=== PATIENT | female | born 1945 | race Caucasian/White ===

== ENCOUNTER 2016-12-28 08:58 | Outpatient (CLI) ==
--- NOTE | 2016-12-28 10:08 | DEXA ---
EXAM: DEXA scan. HISTORY: Osteoporosis. COMPARISON: 07/28/2012. TECHNIQUE: [employer] UKo [id number]. DEXA scan lumbar spine performed. Quality of the study is good. BMD is 1.071 grams per square cent imeter. T-score -0.9. Z-score 1.2. DEXA scan hips performed. Quality of the study is good. BMD 0.687 grams per square centimeter. T-s core -2.5. Z-score -0.8. IMPRESSION: According to the World Health Organization classification, lumbar spine bone mineral density is norm al. Hip bone mineral density demonstrates osteopenia, with increased fracture risk. Ten-year major osteoporotic fracture risk is 11.2%. Ten-year hip fracture risk is 2.8%. Since the prior study, t here has been no significant interval change.
--- NOTE | 2016-12-29 08:59 | MAMMO ---
EXAM: Bilateral digital screening mammogram History: Screening Comparison: Bilateral mammogram 06/10/2015 Findings: MLO and CC views of bilateral breasts demonstrate heterogeneously dense breast parenchyma which can obscure small lesions. There are no dominant masses, no suspicious microcalcifications a nd no architectural distortions Impression: Benign stable mammogram. Recommend followup routine screening mammography in 1 year. BIRADS 2
== END 2016-12-28 08:59 | disposition home or self-care (01) ==
LOC: RAD 08:58
PROVIDERS: ATTEND Emergency Medicine
DX: Z12.31 Encounter for screening mammogram for malignant neoplasm of breast (principal); M81.0 Age-related osteoporosis without current pathological fracture

== ENCOUNTER 2017-04-14 10:16 | Outpatient (CLI) | payer OTHER ==
[2017-04-14 11:56] VITALS: BMI 18.6
== END 2017-04-14 10:17 | disposition home or self-care (01) ==
LOC: DIETCN 10:16
PROVIDERS: ATTEND Internal Medicine
DX: E11.9 Type 2 diabetes mellitus without complications (principal)
CPT/HCPCS: 97802

== ENCOUNTER 2017-04-27 09:17 | Inpatient (IN) ==
[2017-04-27] MEDS ORDERED: NITROSTAT SL PRN (09:39)
[2017-04-27] MEDS ORDERED: VISTARIL INJ IM PRN (09:39)
[2017-04-27] MEDS ORDERED: MORPHINE 4 MG/ML SYRINGE IVP PRN (09:39)
[2017-04-27] MEDS ORDERED: ATROPINE SULFATE PFS IVP PRN (09:39)
[2017-04-27] MEDS ORDERED: TYLENOL PO PRN (09:39)
[2017-04-27 10:22] LABS: BASOPHILS # (AUTO) 0.1 K/uL (0-0.2); BASOPHILS % (AUTO) 1.2 % (0.0-3.0); EOSINOPHILS # (AUTO) 0.2 K/ul (0.0-0.7); EOSINOPHILS % (AUTO) 2.5 % (0.0-7.0); HEMATOCRIT 38.8 % (37.0-47.0); HEMOGLOBIN 12.6 g/dl (12.0-16.0); IMMATURE GRANULOCYTE % (AUTO) 0.2 % (0.0-5.0); IMMATURE RETIC FRACTION 9.9; LYMPHOCYTES # (AUTO) 1.6 K/uL (0.60-3.4); LYMPHOCYTES % (AUTO) 26.7 (10.0-50.0); MEAN CORPUSCULAR HEMOGLOBIN 29.7 pg (27.0-31.0); MEAN CORPUSCULAR HGB CONC 32.5 (31.8-35.4); MEAN CORPUSCULAR VOLUME 91.5 fl (81.0-99.0); MONOCYTES # (AUTO) 0.5 K/uL (0.4-2.0); NEUTROPHILS # (AUTO) 3.7 K/ul (2.0-6.9); NEUTROPHILS % (AUTO) 61.4; PLATELET COUNT 217 10^3/uL (140-440); RED BLOOD COUNT 4.24 10^6/ul (4.20-5.40); RETICULOCYTE % 1.26 %; WHITE BLOOD COUNT 5.99 K/ul (4.6-10.2)
[2017-04-27 11:02] LABS: BILIRUBIN,URINE Negative (NEGATIVE); KETONES,URINE Negative (NEGATIVE); LEUKOCYTE ESTERASE ,URINE Negative (NEGATIVE); NITRITE,URINE Negative (NEGATIVE); PROTEIN,URINE Negative (NEGATIVE); URINE, BLOOD Negative (NEGATIVE)
[2017-04-27 11:32] LABS: CREATININE 0.77 mg/dL (0.60-1.30)
[2017-04-27 11:40] LABS: ADD URINE MICROSCOPIC NO
[2017-04-27] MEDS ORDERED: NORCO 5-325 PO PRN (11:59)
[2017-04-27] MEDS ORDERED: ASPIRIN EC PO SCH (12:00)
[2017-04-27] MEDS ORDERED: VIT D3 PO SCH (12:00)
[2017-04-27] MEDS ORDERED: BIOFLAVONOIDS PO SCH (12:00)
[2017-04-27] MEDS ORDERED: B2 PO SCH (12:00)
[2017-04-27] MEDS ORDERED: B6 PO SCH (12:00)
[2017-04-27] MEDS ORDERED: NON-FORMULARY MEDICATION (Sitagliptin Phosphate [Januvia] 100 MG) PO SCH ×22 (12:00)
[2017-04-27] MEDS ORDERED: FOLIC ACID PO SCH (12:00)
[2017-04-27] MEDS ORDERED: ASCORBIC ACID PO SCH (12:00)
[2017-04-27] MEDS ORDERED: B12 PO SCH (12:00)
[2017-04-27] MEDS ORDERED: [UNRECOGNIZED DRUG - OTHER] PO SCH (12:00)
[2017-04-27 12:04] LABS: ALANINE AMINOTRANSFERASE 14 U/L (12-78); ALBUMIN 3.9 g/dL (3.4-5.0); ALKALINE PHOSPHATASE 44 U/L (53-141); ANION GAP 15.4; ASPARTATE AMINO TRANSFERASE 15 U/L (15-37); BILIRUBIN,TOTAL 1.05 mg/dL (0.00-1.20); BLOOD UREA NITROGEN 25 mg/dL (7-18); BUN/CREATININE RATIO 32.46; CALCIUM 9.3 mg/dL (8.2-10.2); CARBON DIOXIDE 25 mmol/L (23-31); CHLORIDE 107 mmol/L (98-107); CREATINE KINASE 75 U/L; FERRITIN 18.63 ng/mL (4.63-204.00); FOLATE > 20.0 ng/mL (3.1-20.5); GLUCOSE 176 mg/dL (82-115); IRON 53 ug/dL (50-170); MYOGLOBIN 28 ng/ml; POTASSIUM 4.4 mmol/L (3.5-5.10); SODIUM 143 mmol/L (136-145); TOTAL IRON BINDING CAPACITY 330 ug/dL (240-450); TOTAL PROTEIN 6.5 g/dL (5.8-8.1)
--- NOTE | 2017-04-27 12:52 | DI ---
Exam: Two x-rays of the chest. Comparison: None available. Reason for exam: Syncope, hypertension, chest pain. FINDINGS: No pneumothorax, pleural effusion, or focal consolidation. The cardiac silhouette is not enlarged. The imaged osseous structures are unremarkable without an acute fracture. Degenerative c hanges are seen in the acromioclavicular joint spaces. Impression: No acute cardiopulmonary process.
[2017-04-27] MEDS ORDERED: NON-FORMULARY MEDICATION (Omega-3 Fatty Acids/Fish Oil [Fish Oil 1,000 Mg Capsule] 1 EACH) PO SCH ×22 (13:00)
--- NOTE | 2017-04-27 13:21 | US ---
EXAM: Carotid ultrasound HISTORY: Syncopal episode COMPARISON: None TECHNIQUE: Carotid ultrasound was performed using turk scale, color, and Doppler imaging was perfor med. FINDINGS: Right carotid: There is mild atherosclerosis without significant visualized area of atherosclerotic narrowing. Peak systolic velocity measurement in the right internal carotid artery is 0.9 meters p er second. End-diastolic velocity measurement in the right internal carotid artery is 0.2 meters pe r second. Right internal to common carotid artery peak systolic velocity ratio is 1.9. Flow in the right vertebral artery is antegrade. Left carotid: There is mild atherosclerosis without significant visualized area of atherosclerotic narrowing. Peak systolic velocity measurement in the left internal carotid artery is 0.9 meters per second. End-diastolic velocity measurement in the left internal carotid artery is 0.3 meters per s econd. Left internal to common carotid artery peak systolic velocity ratio measures 1.4. Flow in t he left vertebral artery is antegrade. IMPRESSION: 1. Right internal carotid: No hemodynamically significant stenosis 2. Left internal carotid: No hemodynamically significant stenosis
[2017-04-27] MEDS: PROTONIX PO SCH (13:39)
[2017-04-27] MEDS: OMEGA-3 FISH OIL PO SCH ×3 (13:40→21:01)
[2017-04-27] MEDS ORDERED: JANUVIA PO ONE (13:42)
[2017-04-27] MEDS: NON-FORMULARY MEDICATION (Canagliflozin [Invokana] 100 MG) PO SCH ×2 (13:47→14:03)
[2017-04-27] MEDS ORDERED: NON-FORMULARY MEDICATION (Atorvastatin Calcium [Lipitor] 40 MG) PO SCH ×22 (17:00)
[2017-04-27] MEDS ORDERED: METFORMIN HCL PO SCH ×21 (17:00)
[2017-04-27] MEDS: GLUCOPHAGE PO SCH (17:57)
[2017-04-27] MEDS: LIPITOR PO SCH (17:58)
[2017-04-27] MEDS: ZANTAC PO SCH (17:58)
[2017-04-27 18:39] LABS: CREATINE KINASE 61 U/L; MYOGLOBIN 24 ng/ml
[2017-04-27] MEDS ORDERED: NON-FORMULARY MEDICATION (Ferrous Sulfate [Iron] 325 MG) PO SCH ×22 (21:00)
[2017-04-27] MEDS: FERROUS SULFATE PO SCH (21:01)
--- NOTE | 2017-04-27 21:46 | MRI ---
EXAM: Brain MRI with and without contrast. HISTORY: Hypertension and syncopal episode. COMPARISON: Carotid artery duplex ultrasound 04/27/2017. TECHNIQUE: Multiplanar, multisequence MR images were acquired of the brain before and after adminis tration of intravenous contrast. FINDINGS: The midline structures are central and the craniocervical junction is unremarkable. The ventricles are normal in size. There is mild prominence of some parietal sulci. There are no abnor mal extra-axial fluid collections. The brain parenchyma has no diffusion restriction to suggest acute hypoperfusion or infarction. Abelardo r bifrontal and bioccipital periventricular FLAIR hyperintensity is present. There are small scatte red T2 hyperintensities in the supratentorial white matter. 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 There is no abnormal dark gradient echo signal. After administration of contrast, no enhancing lesions are identified. The corpus callosum has a normal configuration. The pituitary gland is normal in size and has homogeneous contrast enhancement. There are no intraorbital masses. There has been previous right lens surgery. Minor hyperostosis f rontalis interna is present. Paranasal sinuses, middle ears and mastoids are unremarkable. There i s no abnormal contrast enhancement in the internal auditory canals or labyrinthine structures. Two s mall synovial cysts are present anterior margin to the left temporal mandibular joint. Flow voids are present in the major intracranial arteries and dural venous sinuses. IMPRESSION: 1. No intracranial hemorrhage, mass or acute cerebral infarct. 2. Minor chronic ischemic small vessel disease.
[2017-04-28 04:49] LABS: BASOPHILS # (AUTO) 0.1 K/uL (0-0.2); BASOPHILS % (AUTO) 1.1 % (0.0-3.0); EOSINOPHILS # (AUTO) 0.3 K/ul (0.0-0.7); HEMATOCRIT 37.4 % (37.0-47.0); HEMOGLOBIN 12.1 g/dl (12.0-16.0); IMMATURE GRANULOCYTE % (AUTO) 0.2 % (0.0-5.0); LYMPHOCYTES # (AUTO) 1.9 K/uL (0.60-3.4); LYMPHOCYTES % (AUTO) 35.8 (10.0-50.0); MEAN CORPUSCULAR HEMOGLOBIN 29.7 pg (27.0-31.0); MEAN CORPUSCULAR HGB CONC 32.4 (31.8-35.4); MEAN CORPUSCULAR VOLUME 91.9 fl (81.0-99.0); MONOCYTES # (AUTO) 0.5 K/uL (0.4-2.0); MONOCYTES % (AUTO) 9.2 (0-10); NEUTROPHILS # (AUTO) 2.5 K/ul (2.0-6.9); NEUTROPHILS % (AUTO) 48.7; PLATELET COUNT 195 10^3/uL (140-440); RED BLOOD COUNT 4.07 10^6/ul (4.20-5.40); WHITE BLOOD COUNT 5.22 K/ul (4.6-10.2)
[2017-04-28 05:13] LABS: ALBUMIN 3.6 g/dL (3.4-5.0); ALBUMIN/GLOBULIN RATIO 1.29; ANION GAP 13.4; BILIRUBIN,TOTAL 0.61 mg/dL (0.00-1.20); BUN/CREATININE RATIO 27.71; CALCIUM 8.8 mg/dL (8.2-10.2); CREATININE 0.83 mg/dL (0.60-1.30); POTASSIUM 4.4 mmol/L (3.5-5.10); TOTAL PROTEIN 6.4 g/dL (5.8-8.1)
[2017-04-28] MEDS: ZANTAC PO SCH ×2 (05:47→16:46)
[2017-04-28] MEDS: PROTONIX PO SCH (05:47)
[2017-04-28] MEDS: NON-FORMULARY MEDICATION (Canagliflozin [Invokana] 100 MG) PO SCH (05:49)
[2017-04-28] MEDS ORDERED: NON-FORMULARY MEDICATION (Canagliflozin [Invokana] 100 MG) PO SCH (06:30)
[2017-04-28] MEDS: OMEGA-3 FISH OIL PO SCH ×4 (08:59→21:26)
[2017-04-28 09:00] LABS: CHOL/HDL RATIO 2.2 (4.5-5.5)
[2017-04-28] MEDS: JANUVIA PO SCH (09:00)
[2017-04-28] MEDS ORDERED: NON-FORMULARY MEDICATION (Lisinopril [Lisinopril] 2.5 MG) PO SCH ×22 (09:00)
[2017-04-28] MEDS: ZESTRIL PO SCH (09:00)
[2017-04-28] MEDS: GLUCOPHAGE PO SCH ×2 (09:00→16:46)
[2017-04-28] MEDS: ASPIRIN EC PO SCH (09:01)
[2017-04-28] MEDS: ASCORBIC ACID 1000 MG PO SCH (09:01)
[2017-04-28] MEDS: FERROUS SULFATE PO SCH ×2 (09:01→21:27)
--- NOTE | 2017-04-28 09:58 | PCM.PROG ---
Attending Provider: ATTENDING PROVIDER: Dr. ALEX HOGUE DATE OF SERVICE: 04/28/17 SUBJECTIVE: This 71 year old WHITE/ F was hospitalized 04/27/17 with syncopal episode. The patient states she had a few syncopal episodes lately. She states after one episode she was extremely weak and could not function. She was admitted yesterday on holter monitor and routine telemetry and is scheduled for echocardiogram and stress echo today. REVIEW OF SYSTEMS: CONSTITUTIONAL: Weakness. No night sweats. No fever or chills. HEENT: Eyes: No visual changes. No eye pain. No eye discharge. ENT: No runny nose. No epistaxis. No sinus pain. No odynophagia. No congestion. RESPIRATORY: No cough, no congestion. No hemoptysis. CARDIOVASCULAR: No angina symptoms. No CHF symptoms. No atypical chest pain for CAD. No palpitations. No shortness of breath. GASTROINTESTINAL: No abdominal pain. No nausea or vomiting. No diarrhea or constipation. No hematemesis. No hematochezia. GENITOURINARY: No urgency. No frequency. No dysuria. No hematuria. No obstructive symptoms. No discharge. No pain. No significant abnormal bleeding. MUSCULOSKELETAL: No musculoskeletal pain; no joint swelling. NEUROLOGICAL: Awake, alert, oriented to time, place and person. No headache. No neck pain. No syncope. No seizures. No dizziness. PSYCHIATRIC: Not anxious. No depression. No suicidal thoughts. No homicidal thoughts. SKIN: No rash. No lesions. No wounds. ENDOCRINE: No unexplained weight loss. No weight gain. HEMATOLOGIC/LYMPHATIC: No anemia. No purpura. No petechiae. No prolonged or excessive bleeding. No palpable lymph nodes. PHYSICAL EXAMINATION: GENERAL: The patient is awake, alert and oriented, sitting in bed in no distress. VITAL SIGNS: Temperature 97.4 F, Pulse 65, Respiratory Rate 16, BP 101/58, Pulse Ox 97% HEENT: Head normocephalic, atraumatic. Eyes: Extraocular muscles are intact. Pupils are equal, round and reactive to light and accommodation. Ears: No lesions. Nose appeared normal. Throat: No exudate or erythema. NECK: Supple. No JVD, no carotid bruit. No lymphadenopathy or thyromegaly. LUNGS: Breath sounds are clear and equal to auscultation. Percussion note normal. Chest symmetrical. HEART: Regular rate and rhythm, S1, S2, no murmur. No cyanosis or clubbing. No ascites. Pulses: Dorsalis pedis and posterior tibial pulses +1 to +2 both sides. ABDOMEN: Soft. Non-tender. Bowel sounds active. No CVA tenderness. No mass felt. EXTREMITIES: No edema. Full range of motion of all extremities, equal. NEUROLOGIC: No focal deficit. Cranial nerves II through XII are grossly intact. No headache, no double vision or headache. SKIN: Not dry. Intact. Turgor-normal. LYMPHATIC: No palpable lymph nodes/no lymphedema. MUSCULOSKELETAL: Normal joints with no swelling. Muscle tone is normal. LAB REVIEW: 04/28/17 04:30 04/28/17 04:30 04/28/17 04:30: WBC 5.22, RBC 4.07 L, Hgb 12.1, Hct 37.4, MCV 91.9, MCH 29.7, MCHC 32.4, RDW Coeff of Jluis 13.2, Plt Count 195, Immature Gran % (Auto) 0.2, Neut % (Auto) 48.7, Lymph % (Auto) 35.8, Towns % (Auto) 9.2, Eos % (Auto) 5.0, Baso % (Auto) 1.1, Immature Gran # (Auto) 0.0, Neut # 2.5, Lymph # 1.9, Towns # 0.5, Eos # 0.3, Baso # 0.1, Sodium 140, Potassium 4.4, Chloride 105, Carbon Dioxide 26, Anion Gap 13.4, BUN 23 H, Creatinine 0.83, Estimated GFR (MDRD) 68.00, BUN/Creatinine Ratio 27.71, Glucose 199 H, Calcium 8.8, Total Bilirubin 0.61, AST 13 L, ALT 12, Alkaline Phosphatase 42 L, Total Protein 6.4, Albumin 3.6, Globulin 2.8, Albumin/Globulin Ratio 1.29 04/27/17 18:00: Total Creatine Kinase 61, Myoglobin 24, Troponin I < 0.0100 04/27/17 10:50: Urine Color Yellow, Urine Clarity Clear, Urine pH 6.0, Ur Specific [place] 1.020, Urine Protein Negative, Urine Glucose (UA) 2+, Urine Ketones Negative, Urine Blood Negative, Urine Nitrite Negative, Urine Bilirubin Negative, Urine Urobilinogen 0.2, Ur Leukocyte Esterase Negative 04/27/17 10:10: WBC 5.99, RBC 4.24, Hgb 12.6, Hct 38.8, MCV 91.5, MCH 29.7, MCHC 32.5, RDW Coeff of Jluis 13.2, Plt Count 217, Immature Gran % (Auto) 0.2, Neut % (Auto) 61.4, Lymph % (Auto) 26.7, Towns % (Auto) 8.0, Eos % (Auto) 2.5, Baso % (Auto) 1.2, Reticulocyte % (Auto) 1.26, Immature Gran # (Auto) 0.0, Neut # 3.7, Lymph # 1.6, Towns # 0.5, Eos # 0.2, Baso # 0.1, Absolute Retic 0.0534, Retic Hgb Equivalent 35.3, Sodium 143, Potassium 4.4, Chloride 107, Carbon Dioxide 25, Anion Gap 15.4, BUN 25 H, Creatinine 0.77, Estimated GFR (MDRD) 74.00, BUN/Creatinine Ratio 32.46, Glucose 176 H, Calcium 9.3, Iron 53, TIBC 330 , % Saturation 16, Unsat Iron Binding 277, Ferritin 18.63, Total Bilirubin 1.05 , AST 15, ALT 14, Alkaline Phosphatase 44 L, Total Creatine Kinase 75, Myoglobin 28, Troponin I < 0.0100, Total Protein 6.5, Albumin 3.9, Globulin 2.6 , Albumin/Globulin Ratio 1.50, Vitamin B12 429, Folate > 20.0, TSH 1.426, Free T4 1.07 ASSESSMENT: 1. Syncopal epsiodes 2. Hypotension 3. Generalized weakness 4. Diabetes mellitus type 2 5. GERD 6. Anemia PLAN: 1. Lipid profile 2. A1C 3. Continue Holter 4. Echo and stress echo today 5. Continue medications Plan and coordination of the patient's care discussed in the presence of Weighmaster and nurse. CONDITION: Stable SCRIBED BY: OSWALDO COSTA Garment Sewer Hand scribed while in presence of service performed by Dr. ALEX HOGUE/CRISTY BUSBY APRN on 04/28/17 ([id number])
--- NOTE | 2017-04-28 11:44 | HP ---
DATE OF SERVICE: 04/27/17 CHIEF COMPLAINT/HISTORY OF PRESENT ILLNESS: This is a 71-year-old female with complaint of "passing out" several times in the past month. She states she just feels like she needs to sleep. Also, she states she has been having incontinent episodes. No symptoms of CVA or chest pain. REVIEW OF SYSTEMS: CONSTITUTIONAL: Fatigue. No fever. HEENT: No sinus drainage, no sore throat. RESPIRATORY: No cough. No hemoptysis. CARDIOVASCULAR: No atypical chest pain for coronary artery disease. No angina , CHF symptoms, palpitations or shortness of breath. GASTROINTESTINAL: No melena or abdominal pain. No GERD. GENITOURINARY: No hematuria, no polyuria. LOCKSTITCH SLEEVE MAKER: Dizziness. No black out. No headache. No double vision. No gait difficulty. MUSCULOSKELETAL: Osteoarthritis pain. No joint swelling. ENDOCRINE: Weight loss. SKIN: Not dry, no rash. PSYCHIATRIC: Anxious. No depression, no suicidal thoughts, no homicidal thoughts. PAST MEDICAL HISTORY: 1. Diabetes mellitus type 2 2. History of left breast cancer 3. Hypertension 4. Dyslipidemia 5. GERD PAST SURGICAL HISTORY: 1. Tonsils 1955 2. 3. Hysterectomy age 29 4. Left breast cancer 1985 5. Cataract removal MENSTRUAL HISTORY: Hysterectomy. SOCIAL HISTORY: No tobacco. No alcohol use. No illicit drug use. . Seven children. Retired. FAMILY HISTORY: Father is with diabetes mellitus type 2; mother of breast cancer. MEDICATIONS: (HOME) 1. Alendronate 70 mg one tab p.o. weekly 2. Metformin 1,000 mg one tab p.o. b.i.d. a.c. 3. Aspirin (Ecotrin) 81 mg p.o. daily 4. Pantoprazole (Protonix) 40 mg p.o. daily 5. [place]-3 Fatty Acids/Fish Oil one each p.o. q.i.d. 6. Cyanocobalamin 1,000 mcg IM monthly 7. Lisinopril 2.5 mg p.o. daily 8. Ranitidine (Zantac) 150 mg p.o. b.i.d. a.c. 9. Sitagliptin (Januvia) 100 mg p.o. daily 10. Ferrous Sulfate 325 mg p.o. b.i.d. 11. Canagliflozin (Invokana) 100mg p.o. daily 12. Hydrocodone/Acetaminophen one each p.o. q.12hr p.r.n. 13. Atorvastatin (Lipitor) 40 mg p.o. q.p.m. 14. Ascorbic Acid (Vitamin C with Sherlyn Hips) 1,000 mg p.o. daily 15. Calcium Carb/Mag Ox/Zinc Sulf one each p.o. daily ALLERGIES: PENICILLIN, LATEX PHYSICAL EXAMINATION: V/S: Temperature 98, Pulse 60, BP 98/62, 02 sat 99%. Height 5'6". Weight 115.2. BMI 18.6. GENERAL APPEARANCE: Oriented times three. HEENT: Normal. NECK: No JVP, no bruits. RESPIRATORY: Lungs are clear. CARDIOVASCULAR: S1, S2, no S3, no murmurs. No cyanosis, clubbing. No ascites. GI/ABDOMEN: No tenderness. Bowel sounds are active. EXTREMITIES: No edema, pulses +1, equal. LOCKSTITCH SLEEVE MAKER: Deep tendon reflexes, sensory, motor and gait all normal. RECTAL/PELVIC: Colonoscopy screening 11/13 Dr. Nathan. Pelvic: Advised yearly. Mammogram 06/14. Colocare discussed. ASSESSMENT: 1. SYNCOPE EPISODES/HYPOTENSION 2. CHEST PAIN, ATYPICAL 3. DIABETES MELLITUS TYPE 2, A1C 8.1 ON 01/14 4. HYPERTENSION 5. DYSLIPIDEMIA 6. GERD 7. RIGHT SCIATICA 8. LIVER HEMANGIOMA 9. HYSTERECTOMY 10. CATARACT 11. B12 DEFICIENCY 12. ANEMIA 13. EGD 05/30/17 DR. COURTNEY PLAN: 1. Admit to regular with routine telemetry orders. 2. Carotid scan. 3. Echocardiogram 2D 'M' Mode. 4. Stress echocardiogram. 5. MRI of brain with contrast. 6. T4, TSH and BUN. 7. CBC and CMP daily. 8. Anemia profile. 9. Holter monitor. 10. Continue all medications. TIME SPENT: More than 70 minutes. MTDD
[2017-04-28] MEDS ORDERED: JANUVIA PO ONE (13:42)
[2017-04-28] MEDS: LIPITOR PO SCH (16:46)
[2017-04-29 04:45] LABS: BASOPHILS # (AUTO) 0.1 K/uL (0-0.2); BASOPHILS % (AUTO) 0.9 % (0.0-3.0); EOSINOPHILS # (AUTO) 0.3 K/ul (0.0-0.7); EOSINOPHILS % (AUTO) 3.6 % (0.0-7.0); HEMATOCRIT 38.8 % (37.0-47.0); HEMOGLOBIN 12.9 g/dl (12.0-16.0); IMMATURE GRANULOCYTE % (AUTO) 0.4 % (0.0-5.0); LYMPHOCYTES # (AUTO) 1.9 K/uL (0.60-3.4); LYMPHOCYTES % (AUTO) 24.7 (10.0-50.0); MEAN CORPUSCULAR HEMOGLOBIN 30.5 pg (27.0-31.0); MEAN CORPUSCULAR HGB CONC 33.2 (31.8-35.4); MEAN CORPUSCULAR VOLUME 91.7 fl (81.0-99.0); MONOCYTES # (AUTO) 0.6 K/uL (0.4-2.0); MONOCYTES % (AUTO) 7.3 (0-10); NEUTROPHILS # (AUTO) 4.8 K/ul (2.0-6.9); NEUTROPHILS % (AUTO) 63.1; PLATELET COUNT 212 10^3/uL (140-440); RED BLOOD COUNT 4.23 10^6/ul (4.20-5.40); WHITE BLOOD COUNT 7.56 K/ul (4.6-10.2)
[2017-04-29 05:06] LABS: ALBUMIN 3.7 g/dL (3.4-5.0); ALBUMIN/GLOBULIN RATIO 1.28; ANION GAP 13.8; BILIRUBIN,TOTAL 0.69 mg/dL (0.00-1.20); CALCIUM 9.3 mg/dL (8.2-10.2); CREATININE 0.8 mg/dL (0.60-1.30); POTASSIUM 4.8 mmol/L (3.5-5.10); TOTAL PROTEIN 6.6 g/dL (5.8-8.1)
[2017-04-29] MEDS: NON-FORMULARY MEDICATION (Canagliflozin [Invokana] 100 MG) PO SCH (05:39)
[2017-04-29] MEDS: PROTONIX PO SCH (05:39)
[2017-04-29] MEDS: ZANTAC PO SCH (05:39)
[2017-04-29 05:47] VITALS: BP 94/58; TEMP 97
[2017-04-29] MEDS ORDERED: VITAMIN B-12 IM SCH (09:00)
[2017-04-29] MEDS: GLUCOPHAGE PO SCH (09:26)
[2017-04-29] MEDS: JANUVIA PO SCH (09:26)
[2017-04-29] MEDS: ASPIRIN EC PO SCH (09:26)
[2017-04-29] MEDS: ZESTRIL PO SCH (09:27)
[2017-04-29] MEDS: OMEGA-3 FISH OIL PO SCH (09:27)
[2017-04-29] MEDS: FERROUS SULFATE PO SCH (09:28)
--- NOTE | 2017-04-29 09:45 | CM.DICTOOL ---
ADMISSION: 04/27/17 09:17 DISCHARGE: 04/29/17 SYNCOPE EPISODE HYPOTENSION HISTORY OF: HEADACHES HYPERTENSION DYSLIPIDEMIA ATYPICAL CHEST PAIN GERD DEPRESSION ANXIETY ANEMIA GASTRIC ULCER LIVER HEMANGIOMA GERD RIGHT SCIATICA DM SURGICAL HISTORY: S/P HYSTERECTOMY DATE UNKNOWN LEFT BREAST LUMPECTOMY DATE UNKNOWN DATE UNKNOWN LAST VITALS Temp Pulse Resp BP Pulse Ox 97.0 F L 62 18 94/58 L 96 04/29/17 05:47 04/29/17 05:47 04/29/17 08:00 04/29/17 05:47 04/29/17 05:47 ACTIVE MEDICATIONS Acetaminophen (Tylenol) 650 mg PO Q4H PRN PRN Reason: Headache Acetaminophen/Hydrocodone Bitart ([place] 5-325) 1 tab PO Q12HR PRN PRN Reason: pain Last Admin: 04/27/17 13:39 Dose: 1 tab Alendronate Sodium (Fosamax) 70 mg PO Mo@0630 [facility] Aspirin (Aspirin Ec) 81 mg PO DAILYWM [facility] Last Admin: 04/28/17 09:01 Dose: 81 mg Atorvastatin Calcium (Lipitor) 40 mg PO QPM [facility] Last Admin: 04/28/17 16:46 Dose: 40 mg Cyanocobalamin (Vitamin B-12) 1,000 mcg IM MONTHLY [facility] Ferrous Sulfate (Ferrous Sulfate) 324 mg PO BID [facility] Last Admin: 04/28/17 21:27 Dose: 324 mg Fish Oil ([place]-3 Fish Oil) 1,000 mg PO QID [facility] Last Admin: 04/28/17 21:26 Dose: 1,000 mg Lisinopril (Zestril) 2.5 mg PO DAILY [facility] Last Admin: 04/28/17 09:00 Dose: 2.5 mg Metformin HCl (Glucophage) 1,000 mg PO BIDWM [facility] Last Admin: 04/28/17 16:46 Dose: 1,000 mg Non-Formulary Medication (Ascorbic Acid [Vitamin C With Sherlyn Hips]) 1,000 mg PO DAILY [facility] Last Admin: 04/28/17 09:01 Dose: 1,000 mg Non-Formulary Medication (Calcium Carb/Mag Ox/Zinc Sulf [Wmopkmh-Hastymrzg-Uusy Tablet]) 1 each PO DAILY [facility] Last Admin: 04/28/17 09:01 Dose: 1 each Non-Formulary Medication (Canagliflozin [Invokana]) 100 mg PO QDAC [facility] Last Admin: 04/29/17 05:39 Dose: 100 mg Pantoprazole Sodium (Protonix) 40 mg PO QDAC [facility] Last Admin: 04/29/17 05:39 Dose: 40 mg Ranitidine HCl (Zantac) 150 mg PO BIDAC [facility] Last Admin: 04/29/17 05:39 Dose: 150 mg Sitagliptin Phosphate (Januvia) 100 mg PO DAILY [facility] Last Admin: 04/28/17 09:00 Dose: 100 mg ALLERGIES latex Adverse Reaction (Unverified 11/02/13 10:11) Penicillins Adverse Reaction (Unverified 11/02/13 10:11) NEW PRESCRIPTIONS: NO NEW PRESCRIPTIONS SMOKING: N/A DISEASE SPECIFIC EDUCATION: SYNCOPE DIABETES DIET MEDICATION FLUID INTAKE ACTIVITY LAB REVIEW: 04/29/17 04:30 04/29/17 04:30 04/29/17 04:30: WBC 7.56, RBC 4.23, Hgb 12.9, Hct 38.8, MCV 91.7, MCH 30.5, MCHC 33.2, RDW Coeff of Jluis 13.2, Plt Count 212, Immature Gran % (Auto) 0.4, Neut % (Auto) 63.1, Lymph % (Auto) 24.7, [place] % (Auto) 7.3, Eos % (Auto) 3.6, Baso % (Auto) 0.9, Immature Gran # (Auto) 0.0, Neut # 4.8, Lymph # 1.9, Pope # 0.6, Eos # 0.3, Baso # 0.1, Sodium 138, Potassium 4.8, Chloride 103, Carbon Dioxide 26, Anion Gap 13.8, BUN 24 H, Creatinine 0.80, Estimated GFR (MDRD) 71.00, BUN/Creatinine Ratio 30.00, Glucose 206 H, Calcium 9.3, Total Bilirubin 0.69, AST 14 L, ALT 14, Alkaline Phosphatase 62, Total Protein 6.6, Albumin 3.7 , Globulin 2.9, Albumin/Globulin Ratio 1.28 04/28/17 04:35: Hemoglobin A1c 8.0 H, Triglycerides 81, Cholesterol 108, LDL Cholesterol, Calc 42, VLDL Cholesterol 16, HDL Cholesterol 50, Cholesterol/HDL Ratio 2.2 L 04/27/17 10:10: Transferrin 286 PLAN: DISCHARGE TO HOME. FOLLOW UP WITH DR. HOGUE ON April AT 1045. CALL IF UNABLE TO KEEP APPOINTMENT. [phone]. CONTINUE HOME MEDICATIONS PER NURSING SHEET. NO NEW MEDICATIONS. DIET: 2500 CALORIE, HIGH PROTEIN, NO JUICES, 1/2 SERVING SIZE OF FRUITS, INCREASE FLUIDS. ACTIVITY TOLERATED. RETURN TO ER OR CALL MD IF SYMPTOMS RETURN OR WORSEN. UP WALKING IN ROOM. ALERT AND ORIENTED X 4. DENIES SYNCOPE. DR. HOGUE DID ECHO AND STRESS THIS AM AND GAVE VERBAL REPORT OF BOTH BEING NORMAL. DR. HOGUE DISCUSSED PLAN OF CARE WITH PATIENT INCLUDING DISCHARGE. DISCUSSED AT LENGTH DIET, AVOIDANCE OF JUICES, EAT 1/2 SERVINGS OF FRUITS, MEDICATIONS, INCREASE OF PROTEIN INTAKE. PATIENT VERBALIZED UNDERSTANDING AND AGREEMENT. APPETITE IS GOOD. SKIN WARM, DRY AND INTACT. HEART TONES ARE REGULAR WITH TELEMETRY REVEALING SINUS RHYTHM WITH BBB AND SINUS RHYTHM. DENIES CHEST PAIN OR DISCOMFORT. LUNGS ARE CLEAR WITH NO COUGH NOTED OR REPORTED. ABDOMEN IS SOFT, NON-TENDER WITH BOWEL SOUNDS POSITIVE IN ALL 4 QUADS. PEDAL PULSES EQUAL WITHOUT EDEMA. IS FALL RISK WITH FALL PRECAUTIONS IN USE DUE TO DIAGNOSIS. IS STANDBY ASSIST WITH STEADY/SLOW GAIT. VITAL SIGNS ARE STABLE. HAS SALINE LOCK IN LEFT FOREARM SITE IS CLEAR. NO ACUTE DISTRESS NOTED. DR. ALEX HOGUE MD CRISTY BUSBY APRN
[2017-04-29] MEDS ORDERED: VITAMIN B-12 IM STA (10:05)
[2017-04-29] MEDS: ASCORBIC ACID 1000 MG PO SCH (10:07)
--- NOTE | 2017-04-29 10:44 | STRESSMOD ---
Ordering Physician: ALEX HOGUE Date of Test: 04/29/17 Medical History: SYNCOPAL EPISODE, HYPERTENSION, CHEST PAIN Current Medications: LIPITOR, LISINOPRIL, JANUVIA, METFORMIN, INVOKANA, NORCO, PROTONIX Physical Findings: S1, S2, NO S3 Resting EKG: SINUS RHYTHM/NONE SPECIFIC ST-T WAVE Target Heart Rate: 128/151 STAGE MPH/GRADE HEART RATE BPM BLOOD PRESSURE mmhg RHYTHM S-T SEGMENT UP DOWN SYMPTOMS,COMMENTS At Rest 80 108/82 SR X NONE 1 1.7/0% 110 136/74 SR X NONE 2 1.7/5% 120 140/76 SR X NONE 3 1.7/10% 4 2.5/12% 5 3.4/14% 6 4.2/16% 7 5.18% Immediately after 127 SR X SHORT OF BREATH Total Time: 6:48 Maximum Heart Rate Reached: 127 Reason for Termination: SHORT OF BREATH 3 MIN POST EXERCISE: HR 94 BPM, BP 136/80 MMHG ____ INTERPRETATION: 99% OXYGEN SATURATION WITH EXERCISE METS 9.4 1. NO EVIDENCE OF ISCHEMIA BY ST-T WAVE 2. NO CHEST PAIN OR CHEST DISCOMFORT 3. BLOOD PRESSURE RESPONSE: NORMAL 4. NO ARRHYTHMIAS NORMAL LEFT VENTRICULAR CONTRACTILITY--RESTING AND POST EXERCISE MTDD
--- NOTE | 2017-04-29 11:10 | HOLTER ---
PATIENT INFORMATION AND COMMENTS Indications: SYNCOPE __ Patient Medications: LIPITOR, LISINOPRIL, ZANTAC, JANUVIA, METFORMIN, IRON, INVOKANA, NORCO, PROTONIX, ASPIRIN __ Pre-procedure Summary: Protocol: Standard Heart Rate Started: 04/27/17 1326 Minimum: 48 BPM Weight: 115 LBS Ended: 04/28/17 1311 Maximum: 106 BPM Height: 66" Duration: 24 HOURS Average: 62 BPM _ INTERPRETATIONS/OBSERVATIONS: 1. BASIC RHYTHM: SINUS, RATE 50 BPM TO 100 BPM, AVERAGE 60 BPM 2. RARE TO FEW PAC'S AND PVC'S 3. FOUR TO FIVE SHORT RUNS OF SVT WITH RATE 120 BPM NOTED (4 TO 10 BEATS) 4. NO ST-T WAVE CHANGES FROM BASELINE 5. NO CORRELATION WITH ACTIVITY LOG MTDD
--- NOTE | 2017-04-29 12:34 | PN ---
DATE OF SERVICE: 04/28/17 SUBJECTIVE: The patient examined and note dictated by Nurse Practitioner. The patient was seen with Nurse practitioner. REVIEW OF SYSTEMS: CONSTITUTIONAL: No night sweats. No fatigue, malaise, lethargy. No fever or chills. HEENT: Eyes: No visual changes. No eye pain. No eye discharge. ENT: No runny nose. No epistaxis. No sinus pain. No sore throat. No odynophagia. No congestion. RESPIRATORY: No cough, no congestion. No hemoptysis. CARDIOVASCULAR: No angina symptoms. No CHF symptoms. No atypical chest pain for CAD. No palpitations. No shortness of breath. GASTROINTESTINAL: No abdominal pain. No nausea or vomiting. No diarrhea or constipation. No hematemesis. No hematochezia. GENITOURINARY: No urgency. No frequency. No dysuria. No hematuria. No obstructive symptoms. No discharge. No pain. No significant abnormal bleeding. MUSCULOSKELETAL: No musculoskeletal pain; no joint swelling. NEUROLOGICAL: No headache. No neck pain. No syncope. No seizures. No dizziness. PSYCHIATRIC: Not anxious. No depression. No suicidal thoughts. No homicidal thoughts. SKIN: No rash. No lesions. No wounds. ENDOCRINE: No unexplained weight loss. No weight gain. HEMATOLOGIC/LYMPHATIC: No anemia. No purpura. No petechiae. No prolonged or excessive bleeding. No palpable lymph nodes. PHYSICAL EXAMINATION: HEENT: Head normocephalic, atraumatic. Eyes: Extraocular muscles are intact. Pupils are equal, round and reactive to light and accommodation. Ears: No lesions. Nose appeared normal. Throat: No exudate or erythema. NECK: Supple. No JVP, no carotid bruit. No lymphadenopathy or thyromegaly. LUNGS: Clear to auscultation. Percussion note normal. Chest symmetrical. HEART: S1, S2, no S3. No murmurs. No cyanosis or clubbing. No ascites. Pulses: Dorsalis pedis and posterior tibial pulses +1 to +2 both sides. ABDOMEN: Soft. Nontender. Bowel sounds active. No CVA tenderness. No mass felt. EXTREMITIES: No edema. Full range of motion of all extremities, equal. NEUROLOGIC: No focal deficit. Cranial nerves II through XII are grossly intact. No headache, no double vision or headache. SKIN: Not dry. Intact. Turgor - normal. LYMPHATIC: No palpable lymph nodes/no lymphedema. MUSCULOSKELETAL: Normal joints with no swelling. Muscle tone is normal. LABS: Carotid scan no hemodynamically significant blocked arteries. CT scan of the head normal. EKG sinus rhythm with no acute changes. Blood sugar was 199, no hypoglycemia noted. Telemetry no arrhythmias of any significance noted. Labs are acceptable with Creatinine 0.8, BUN 23 and potassium 4.4 PLAN: 1. The patient will undergo echo and stress echo tomorrow CONDITION: Stable. TIME SPENT: More than 30 minutes. Plan and coordination of the patient's care discussed in the presence of nurse. STONE
[2017-05-02] MEDS ORDERED: FOSAMAX PO SCH (06:30)
--- NOTE | 2017-05-02 12:59 | ECHO2D ---
Date of Exam: 04/29/17 Ordering Physician: ALEX HOGUE Reason for Echo: SYNCOPAL EPISODE, HYPERTENSION, ATYPICAL CHEST PAIN M-Mode Normal Adult Results LV Dimensions Normal Adult Results AoV Opening excursions >1.6 >1.6 LVEDD-base- 3.5-5.8 4.0 Ao root dimensions 2.0-3.7 3.2 LVESD-base- 3.1-4.6 L. Atrium dimensions 1.9-3.8 2.6 Post. Wall thickness 0.8-1.1 0.9 IV septum (thickness) 0.7-1.2 1.1 Post. Wall excursion 0.72-1.3 NORMAL Septal motion NORMAL Systolic motion R. Ventricular cavity 1.5-2.0 NORMAL LVEF 60% 55% Paradoxical septal wall motion NORMAL 2-D : MITRAL VALVE PROLAPSE NOTED WITH APICAL FOUR CHAMBER VIEW AND LEFT PARASTERNAL LONG AXIS. NORMAL LEFT VENTRICULAR CONTRACTILITY--NO EFFUSION, NO THROMBUS, NORMAL LEFT VENTRICLE AND LEFT ATRIAL SIZE M-MODE: MV: MITRAL VALVE PROLAPSE -LATE SYSTOLIC AV: NORMAL TV: NORMAL PV: CHAMBER SIZE: NORMAL WALL MOTION: NORMAL PERICARDIUM: NORMAL INTERPRETATION: 1. MITRAL VALVE PROLAPSE LATE SYSTOLIC 2. NORMAL LEFT VENTRICULAR CONTRACTILITY MTDD
--- NOTE | 2017-05-13 14:49 | DS ---
DATE OF SERVICE: 04/29/17 FINAL DIAGNOSIS: 1. Syncope episode 2. Hypotension 3. Mitral valve Prolapse. 4. History of headaches 5. Hypertension 6. Dyslipidemia 7. Atypical chest pain 8. GERD 9. Depression 10. Anxiety 11. Anemia 12. Gastric Ulcer 13. Liver Hemangioma 14. GERD 15. Right sciatica 16. Diabetes Mellitus 17. Status post hysterectomy date unknown 18. Left breast lumpectomy date unknown 19. date unknown LAST VITALS: Temperature 97, pulse 62, respiratory rate 18, blood pressure 94/58 and pulse ox 96% DISCHARGE INSTRUCTIONS: Discharge to home. Followup with Dr. Goldman on May 06 at 1045. Continue home medication per nursing sheet. Return to ER or call MD if symptoms return or worsen. MEDICATIONS AT DISCHARGE: Tylenol 650mg PO Q 4 hours PRN [place] 5-325 PO Q 12 hours PRN Fosamax 70mg PO Mo @ 0630 Aspirin 81mg PO daily Lipitor 40mg PO QPM Vitamin B-12 1,000mcg IM monthly Ferrous Sulfate 324mg PO twice a day [place]-3 Fish Oil 1,000mg PO four times a day Zestril 2.5mg PO daily Glucophage 1,000mg PO twice a day Ascorbic acid(Vitamin C with Sherlyn Hips) 1,000mg PO daily Trrkeej-Gqqhuyovt-Keus PO daily Invokana 100mg PO QDAC Protonix 40mg PO QDAC Zantac 150mg PO twice a day Januvia 100mg PO daily ALLERGIES: Latex Penicillin NEW PRESCRIPTIONS: No New Prescriptions DIET INSTRUCTIONS: 2500 calorie, high protein, no juices, 1/2 serving size of fruits, increase fluids. ACTIVITY: As tolerated SMOKING: N/A DISEASE SPECIFIC EDUCATION: Syncope Diabetes Diet Medication Fluid Intake HOSPITAL COURSE: The patient is a 71 year old white female hospitalized with near syncopal episode and hypotension. The patient was worked up with Carotid scan, MRI of the brain, Telemetry, echocardiogram, stress echo. The patient also had atypical chest pain or coronary insufficiency. All the test were unremarkable. The patient was up and about. The patient's problem is she is exhausted. She lost her nearly six weeks ago. She has been going through a lot of stress and she has has diabetes mellitus with A1c of 8. The patient did not have any hypoglycemia. In fact she has hyperglycemia. The patient was discharged on Lipitor. Lisinopril was used 2.5 because of kidney protection effect of JAYLYN inhibitor. Metformin was continued also with iron pills. Protonix was continued with Zantac. Januvia was continued 100mg and no new medication. The patient is advised to eat regularly, small meals. A little bit more on proteins. Fluids intake seems to be the main problem. CONDITION: Stable LABS: hgb 12.9, hct 38, WBC 7,500 normal differential, creatinine 0.8, BUN 24, potassium 4.8, glucose 260, T4TSH normal. TIME SPENT: More than 60 minutes. MTDD
--- NOTE | 2017-05-13 14:50 | PN ---
04/27/17: Level 5 04/28/17: Intermediate 04/29/17: D as in discharge MTDD
--- NOTE | 2017-05-13 15:04 | PN ---
DATE OF SERVICE: 04/29/17 DISCHARGE NOTE SUBJECTIVE: The patient is a 71 year old white female hospitalized with syncopal episode and hypotension. The patient is up and about feeling a lot better. Her telemetry did not reveal any arrhythmias. Carotid scan and MRI of the brain were normal. REVIEW OF SYSTEMS: CONSTITUTIONAL: No night sweats. No fatigue, malaise, lethargy. No fever or chills. HEENT: Eyes: No visual changes. No eye pain. No eye discharge. ENT: No runny nose. No epistaxis. No sinus pain. No sore throat. No odynophagia. No congestion. RESPIRATORY: No cough, no congestion. No hemoptysis. CARDIOVASCULAR: No angina symptoms. No CHF symptoms. No atypical chest pain for CAD. No palpitations. No shortness of breath. GASTROINTESTINAL: No abdominal pain. No nausea or vomiting. No diarrhea or constipation. No hematemesis. No hematochezia. GENITOURINARY: No urgency. No frequency. No dysuria. No hematuria. No obstructive symptoms. No discharge. No pain. No significant abnormal bleeding. MUSCULOSKELETAL: No musculoskeletal pain; no joint swelling. NEUROLOGICAL: No headache. No neck pain. No syncope. No seizures. No dizziness. PSYCHIATRIC: Not anxious. No depression. No suicidal thoughts. No homicidal thoughts. SKIN: No rash. No lesions. No wounds. ENDOCRINE: No unexplained weight loss. No weight gain. HEMATOLOGIC/LYMPHATIC: No anemia. No purpura. No petechiae. No prolonged or excessive bleeding. No palpable lymph nodes. PHYSICAL EXAMINATION: GENERAL: The patient is oriented to time, place and person. VITAL SIGNS: Temperature 97, pulse 62, respiratory rate 16, blood pressure 94/ 58 and pulse ox 96%. HEENT: Head normocephalic, atraumatic. Eyes: Extraocular muscles are intact. Pupils are equal, round and reactive to light and accommodation. Ears: No lesions. Nose appeared normal. Throat: No exudate or erythema. NECK: Supple. No JVD, no carotid bruit. No lymphadenopathy or thyromegaly. LUNGS: Decreased breath sounds but clear to auscultation. Percussion note normal. Chest symmetrical. HEART: S1, S2, no S3. No murmurs. No cyanosis or clubbing. No ascites. Pulses: Dorsalis pedis and posterior tibial pulses +1 to +2 both sides. ABDOMEN: Soft. Nontender. Bowel sounds active. No CVA tenderness. No mass felt. EXTREMITIES: No edema. Full range of motion of all extremities, equal. NEUROLOGIC: No focal deficit. Cranial nerves II through XII are grossly intact. No headache, no double vision or headache. SKIN: Not dry. Intact. Turgor - normal. LYMPHATIC: No palpable lymph nodes/no lymphedema. MUSCULOSKELETAL: Normal joints with no swelling. Muscle tone is normal. ASSESSMENT: 1. Syncope likely could be exhaustion 2. Hypotension 3. Diabetes Mellitus 4. History of hypertension 5. Dyslipidemia PLAN: 1. The patient had echocardiogram done which showed normal LV contractility; Mitral valve prolapse noted. 2. The patient walked for the stress test more than 8 minutes and reached the target heart rate. No chest pain was noted. Her exercise tolerance is excellent. Her Blood pressure response was normal to the exercise. In fact the exercise test she passed it with flying colors. 3. The patient's problems is hyperglycemia which is mild to moderate. Her A1c is 8 and she was advised to keep it between 6 to 7. 4. Complications of diabetes discussed with her. 5. The diet she is non-complaint. She was counseled about the diet. 6. Also advised to take small meals with more proteins and not to skip the meals and take enough rest. 7. She has been exhausted mentally as well as physically. Her nearly 6 weeks ago. CONDITION: Stable TIME SPENT: More than 30 minutes. Plan and coordination of the patient's care discussed in the presence of nurse. STONE
== END 2017-04-29 10:39 | disposition home or self-care (01) | DRG 312 ==
LOC: MEDSURG B 09:17
PROVIDERS: ADMIT Internal Medicine; ATTEND Internal Medicine
DX: R55 Syncope and collapse (principal); I95.9 Hypotension, unspecified; I34.1 Nonrheumatic mitral (valve) prolapse; I10 Essential (primary) hypertension; E11.65 Type 2 diabetes mellitus with hyperglycemia; D64.9 Anemia, unspecified; E78.5 Hyperlipidemia, unspecified; R07.89 Other chest pain; R53.83 Other fatigue; R53.1 Weakness; K21.9 Gastro-esophageal reflux disease without esophagitis; F41.8 Other specified anxiety disorders; K25.9 Gastric ulcer, unspecified as acute or chronic, without hemorrhage or perforation; D18.09 Hemangioma of other sites; Z86.69 Personal history of other diseases of the nervous system and sense organs; Z63.4 Disappearance and death of family member; Z79.84 Long term (current) use of oral hypoglycemic drugs; Z79.899 Other long term (current) drug therapy
CPT/HCPCS: 36415; 80053; 80061; 81001; 82550; 82607; 82728; 82746; 82962; 83036; 83540; 83550; 83874; 84439; 84443; 84466; 84484; 85025; 85045; 93005; 93010; 97802

== ENCOUNTER 2017-05-30 10:27 | Day surgery (SDC) ==
--- NOTE | 2017-04-29 10:48 | ECHOSTRESS ---
Date of Exam: 04/29/17 Ordering Physician: ALEX HOGUE Reason for Echo: SYNCOPAL EPISODE, HYPERTENSION, ATYPICAL CHEST PAIN, STRESS TEST--NO ISCHEMIA M-Mode Normal Adult Results LV Dimensions Normal Adult Results AoV Opening excursions >1.6 LVEDD-base- 3.5-5.8 Ao root dimensions 2.0-3.7 LVESD-base- 3.1-4.6 L. Atrium dimensions 1.9-3.8 Post. Wall thickness 0.8-1.1 IV septum (thickness) 0.7-1.2 Post. Wall excursion 0.72-1.3 Septal motion Systolic motion R. Ventricular cavity 1.5-2.0 LVEF 60% Paradoxical septal wall motion 2-D: NORMAL LEFT VENTRICULAR CONTRACTILITY--RESTING AND POST EXERCISE M-MODE: MV: AV: TV: PV: CHAMBER SIZE: WALL MOTION: NORMAL LEFT VENTRICULAR CONTRACTILITY--RESTING AND POST EXERCISE PERICARDIUM: INTERPRETATION: 1. NORMAL LEFT VENTRICULAR CONTRACTILITY--RESTING AND POST EXERCISE MTDD
[2017-05-30] MEDS ORDERED: DIPRIVAN 20 ML VIAL IVP ONE (11:14)
[2017-05-30] MEDS ORDERED: VERSED ONE (11:14)
[2017-05-30 12:24] VITALS: BP 93/52; TEMP 98.3
--- NOTE | 2017-05-31 10:15 | OP ---
PROCEDURE: EGD (ESOPHAGOGASTRODUODENOSCOPY). ENDOSCOPIST: Shirin COURTNEY M.D. INDICATION: ABDOMINAL PAIN. INSTRUMENT: GIFH-190. MEDICATION: PER ANESTHESIA. PROCEDURE: The patient was positioned for endoscopy. The oropharynx was sprayed with Cetacaine spray and the endoscope was advanced through the bite block into the esophagus and from there advanced to the duodenum. The duodenum was normal. The pylorus was widely patent. The antrum is notable for gastritis. Biopsy for helicobacter was obtained. Retroflex exam was otherwise normal. Esophagus normal with a Z-line noted at 40 cm. The patient tolerated the procedure without immediate complication and is positioned for colonoscopy. CC: DR. MYKEL RITTER
--- NOTE | 2017-05-31 10:17 | OP ---
PROCEDURE: COLONOSCOPY TO THE CECUM WITH SNARE POLYPECTOMY. ENDOSCOPIST: Shirin COURTNEY M.D. INDICATION: ABDOMINAL PAIN. INSTRUMENT: FH-190. MEDICATION: PER ANESTHESIA. PROCEDURE: The patient was positioned for colonoscopy. The digital rectal exam was negative. The colonoscope was inserted through the anus and advanced under direct vision to the cecum. The cecum was identified using the ileocecal valve and the appendiceal orifice as landmarks. The scope was slowly withdrawn through an adequately prepped colon. A 6 mm sessile polyp was removed at 70 cm using snare cautery. Diverticuli were noted throughout the left colon. Retroflex exam was otherwise normal. Withdrawal time 10 minutes, 33 seconds. PLAN: 1. Suggest repeat colonoscopy in 5 years. CC: DR. MYKEL RITTER
== END 2017-05-30 13:08 | disposition home or self-care (01) ==
LOC: SURG 10:27
PROVIDERS: ATTEND Internal Medicine Gastroenterology
DX: R10.9 Unspecified abdominal pain (principal); D12.4 Benign neoplasm of descending colon; K29.70 Gastritis, unspecified, without bleeding; K57.30 Diverticulosis of large intestine without perforation or abscess without bleeding
CPT/HCPCS: 87339

== ENCOUNTER 2017-06-17 14:54 | Outpatient (CLI) ==
--- NOTE | 2017-06-17 16:06 | DI ---
EXAM: Left knee, four views, 06/17/2017 HISTORY: Pain COMPARISON: None. FINDINGS / IMPRESSION: The visualized osseous structures appear intact. Mild osteoarthritic degene rative change. Anatomic alignment appears within normal limits. There is no evidence of fracture or dislocation. No acute osseous abnormality.
--- NOTE | 2017-06-17 16:12 | DI ---
EXAM: Three views of the left ankle HISTORY: Ankle pain with no injury. COMPARISON: None FINDINGS: There is no lytic or blastic lesion of the left ankle. There is no displaced fracture or dislocation. The soft tissues are unremarkable. Hind foot structures are unremarkable. IMPRESSION: No acute abnormality or displaced fracture of the left ankle.
== END 2017-06-17 14:55 | disposition home or self-care (01) ==
LOC: RAD 14:54
PROVIDERS: ATTEND Internal Medicine
DX: M25.562 Pain in left knee (principal); M25.572 Pain in left ankle and joints of left foot

== ENCOUNTER 2018-01-05 08:06 | Outpatient (CLI) ==
--- NOTE | 2018-01-06 11:44 | MAMMO ---
EXAM: Bilateral digital screening mammogram (2-D and 3-D) History: Screening Comparison: Bilateral mammogram 12/28/2016 Findings: MLO and CC views of bilateral breasts demonstrate heterogeneously dense breast parenchyma which can obscure small lesions. CAD was reviewed by the radiologist. Tomosynthesis was performed. There are no dominant masses, no suspicious microcalcifications and no architectural distortions Impression: Stable negative mammogram. Recommend followup routine screening mammography in 1 year. BIRADS 1
== END 2018-01-05 08:07 | disposition home or self-care (01) ==
LOC: RAD 08:06
PROVIDERS: ATTEND Internal Medicine
DX: Z12.31 Encounter for screening mammogram for malignant neoplasm of breast (principal)
CPT/HCPCS: 77067

== ENCOUNTER 2018-03-08 17:18 | Emergency (ER) ==
[2018-03-08 17:24] VITALS: BP 131/72; TEMP 97.8; BMI 20.9
[2018-03-08] MEDS ORDERED: MORPHINE 4 MG/ML SYRINGE IM STA (17:34)
[2018-03-08] MEDS ORDERED: ZOFRAN 4 MG/2 ML IM STA (17:35)
--- NOTE | 2018-03-08 18:21 | ED.PDOC ---
General ED Provider: Dr. YESSI ADKINS Chief Complaint: Chest Wall Injury/Pain Stated Complaint: blunt chest injury right chest wall Time Seen by Physician: 17:30 (30 min ago seen with RN) Mode of Arrival: Walk-In Information Source: Patient Exam Limitations: No limitations Primary Care Provider: ALEX HOGUE Nursing and Triage Documentation Reviewed and Agree: Yes Reviewed sepsis parameters & appropriate labs ordered?: Yes System Inflammatory Response Syndrome: Not Applicable Sepsis Protocol: For patient's 13 years and over: Temp is 96.8 and below OR 101 and greater Pulse >90 BPM Resp >20/minute Acutely Altered Mental Status Are patient's symptoms suggestive of a new infection, such as: -Pneumonia -Skin, Soft Tissue -Endocarditis -UTI -Bone, Joint Infection -Implantable Device -Acute Abdominal Infection -Wound Infection -Meningitis -Blood Stream Catheter Infection -Unknown System Inflammatory Response Syndrome: Not Applicable Trauma/Injury Complaint Exam - Trauma Complaint/Exam Location of Pain or Injury: Reports: Chest (RIGHT LOWER CHEST) Mechanism of Injury: Reports: Fall Onset/Duration: 17:19 Symptoms Are: Still present Initial Severity: Moderate Current Severity: Moderate Character: Reports: Aching Aggravating: Reports: None Alleviating: Reports: None Associated Signs and Symptoms: Denies: LOC, Confusion, Memory loss, Lethargy, Vomiting, Bleeding, Bruising, Swelling, Extremity disuse, Painful respiration, Hoarseness, Dysphagia, Hemoptysis, Significant blood loss Related History: Reports: Similar episode : No Penetrating Injury Risk Factors: Reports: None Nexus Low Risk Criteria: No post-midline CS tender, No evidence of intoxicat., No Altered LOC, No focal neuro deficit, No distracting injuries Immobilization Removed Post Exam: No Trauma Findings: Absent: [place] eyes, Hemotympanum, Nasal deformity, Dental tenderness, Dental injury, Dental malocclusion, Neck tenderness, Neck spasm, Crepitus, Airway obstructed, Trachea displaced, Labored respirations, Decreased breath sounds, Muffled heart sounds, Weak pulses, Absent pulses, Abdominal distention, Pelvic tenderness, Pelvic instability Differential Diagnoses: Sprain, Strain Review of Systems - Review Of Systems Constitutional: Reports: No symptoms Eyes: Reports: No symptoms Ears, Nose, Mouth, Throat: Reports: No symptoms Respiratory: Reports: No symptoms Cardiac: Reports: No symptoms GI: Reports: No symptoms : Reports: No symptoms Musculoskeletal: Reports: Other (CHEST WALL PAIN) Skin: Reports: No symptoms Neurological: Reports: No symptoms Endocrine: Reports: No symptoms Hematologic/Lymphatic: Reports: No symptoms All Other Systems: Reviewed and Negative Past Medical History - Past Medical History Previously Healthy: Yes Endocrine: Reports: DM 2 Cardiovascular: Reports: Hypertension Respiratory: Reports: None Hematological: Reports: None Gastrointestinal: Reports: None Genitourinary: Reports: None Neuro/Psych: Reports: None Musculoskeletal: Reports: None Cancer: Reports: None Last Menstrual Period: none - Surgical History General Surgical History: Reports: None - Family History Family History: Reports: None - Social History Smoking Status: Former smoker Hx Substance Use: No Alcohol Screening: None Physical Exam - Physical Exam Appearance: Well-appearing, No pain distress, Well-nourished Eyes: TINO, EOMI, Conjunctiva clear ENT: Ears normal, Nose normal, Oropharynx normal Respiratory: Airway patent, Breath sounds clear, Breath sounds equal, Respirations nonlabored Cardiovascular: RRR, Pulses normal, No rub, No murmur GI/: Soft, Nontender, No masses, Bowel sounds normal, No Organomegaly Musculoskeletal: Normal strength, ROM intact, No edema, No calf tenderness Skin: Warm, Dry, Normal color Neurological: Sensation intact, Motor intact, Reflexes intact, Cranial nerves intact, Alert, Oriented Psychiatric: Affect appropriate, Mood appropriate Critical Care Note - Critical Care Note Total Time (mins): 0 Course - Course Orders, Labs, Meds: Orders Category Date Time Status Morphine Sulfate [Morphine 4 mg/ml Syringe] MEDS 03/08/18 17:34 Discontinued 4 mg IM ONCE STA Ondansetron HCl/Pf [Zofran 4 mg/2 ml] MEDS 03/08/18 17:35 Discontinued 4 mg IM ONCE STA CT CHEST W/O CONTRAST Stat RADS 03/08/18 17:33 Taken Medications Discontinued Medications Generic Name Dose Route Start Last Admin Trade Name Freq PRN Reason Stop Dose Admin Morphine Sulfate 4 mg 03/08/18 17:34 03/08/18 18:15 Morphine 4 Mg/Ml Syringe IM 03/08/18 17:35 4 mg ONCE STA Administration Ondansetron HCl 4 mg 03/08/18 17:35 03/08/18 18:14 Zofran 4 Mg/2 Ml IM 03/08/18 17:36 4 mg ONCE STA Administration Vital Signs: Temp Pulse Resp BP Pulse Ox 03/08/18 17:19 97.8 F 96 H 18 131/72 96 Departure - Departure Time of Disposition: 19:20 Disposition: HOME SELF-CARE Discharge Problem: Chest wall pain Instructions: Chest Wall Pain (ED) Condition: Good Pt referred to PMD for follow-up: No IPMP verified?: Yes Additional Instructions: Please call your Family Physician as soon as possible to schedule a follow-up appointment. Allergies/Adverse Reactions: Allergies latex Adverse Reaction (Verified 03/08/18 17:24) Penicillins Adverse Reaction (Verified 03/08/18 17:24) Home Medications: Ambulatory Orders Alendronate Sodium 1 tab PO WEEKLY 11/02/13 Aspirin [Ecotrin] 81 mg PO DAILY 11/02/13 Metformin HCl 1 tab PO BIDAC 11/02/13 Ascorbic Acid [Vitamin C with Sherlyn Hips] 1,000 mg PO DAILY 04/27/17 Atorvastatin Calcium [Lipitor] 40 mg PO QPM 04/27/17 Calcium Carb/Mag Ox/Zinc Sulf [Dpjshug-Pislfkkow-Aggk Tablet] 1 each PO DAILY Cyanocobalamin (Vitamin B-12) [Cyanocobalamin Injection] 1,000 mcg IM MONTHLY Ferrous Sulfate [Iron] 325 mg PO BID 04/27/17 Hydrocodone Bit/Acetaminophen [[place] 5-325] 1 each PO Q12HR PRN 04/27/17 Lisinopril 2.5 mg PO DAILY 04/27/17 [place]-3 Fatty Acids/Fish Oil [Fish Oil 1,000 mg Capsule] 1 each PO QID 04/27/17 Pantoprazole Sodium [Protonix] 40 mg PO DAILY 04/27/17 Ranitidine HCl [Zantac] 150 mg PO BIDAC 04/27/17 Insulin Lispro [Humalog] 15 unit SUBCUT ONCE 03/08/18 Disposition Discussed With: Patient
--- NOTE | 2018-03-08 18:22 | CT ---
Exam: CT of the chest without intravenous contrast. Comparison: Chest x-ray performed 04/27/2017. Reason for exam: Pain. FINDINGS: No pneumothorax, pleural effusion, or focal consolidation. The cardiac silhouette is not enlarged. The aorta is mildly prominent measuring 3.5 cm at the level of the arch. Atherosclerotic disease is seen within the aorta and distal arterial vasculature. No suspicious appearing osteoblastic or osteolytic lesions. No displaced fractures are seen. Impression: No acute imaging findings are seen within the thorax.
== END 2018-03-08 19:24 | disposition home or self-care (01) ==
LOC: ED 17:18
DX: R07.89 Other chest pain (principal); W19.XXXA Unspecified fall, initial encounter
CPT/HCPCS: 96372; 99283

== ENCOUNTER 2018-03-15 09:48 | Outpatient (CLI) | payer OTHER ==
--- NOTE | 2018-03-15 10:55 | DI ---
EXAM: PA and lateral views of the chest HISTORY: Chest pain COMPARISON: CT chest 03/08/2018 FINDINGS: The cardiomediastinal silhouette is normal. There is no pneumothorax or pleural effusion. There is no consolidation, nodule or mass. The osseous structures demonstrate degenerative disease . IMPRESSION: No acute cardiopulmonary process
--- NOTE | 2018-03-15 11:01 | DI ---
EXAM: Radiographs, bilateral rib HISTORY: Bilateral rib pain. COMPARISON: Chest CT 03/08/2018. TECHNIQUE: Four views. FINDINGS/IMPRESSION: Nondisplaced right seventh, eighth and ninth anterolateral rib fractures noted. No left rib fracture s seen. Lungs are clear without pleural effusion or pneumothorax.
== END 2018-03-15 09:49 | disposition home or self-care (01) ==
LOC: RAD 09:48
PROVIDERS: ATTEND Internal Medicine
DX: M54.9 Dorsalgia, unspecified (principal); R07.81 Pleurodynia; R06.02 Shortness of breath

== ENCOUNTER 2018-06-16 11:54 | Outpatient (CLI) | payer OTHER ==
--- NOTE | 2018-06-16 13:35 | US ---
EXAM: Ultrasound bilateral carotid duplex HISTORY: Dizziness COMPARISON: Carotid Doppler 04/27/2017 TECHNIQUE: Sonographic and color Doppler evaluation of the carotids were performed. FINDINGS: The right carotid is tortuous and patent in appearance with mild atherosclerotic plaque visualized. The right ICA peak systolic velocity measures 90 cm/sec which is normal. The ICA / CCA peak systolic velocity ratio is 1.6 and ICA end-diastolic velocity is 30 cm/sec. The left carotid is tortuous and patent in appearance with mild atherosclerotic plaque visualized. The left ICA peak systolic velocity measures 90 cm/sec which is normal. The left ICA / CCA peak systolic velocity ratio is 1.8 and ICA end-diastolic velocity is 30 cm/sec. Right vertebral artery demonstrate antegrade flow bilaterally. Left vertebral artery is not seen. IMPRESSION: 1. Mild scattered atherosclerotic disease without evidence of hemodynamically significant stenosis. 2. Vertebral artery is not visualized.
--- NOTE | 2018-06-16 23:51 | MRI ---
EXAM: Brain MRI with and without contrast. HISTORY: Dizziness and forgetfulness. COMPARISON: Brain MRI 04/27/2017. TECHNIQUE: Multiplanar, multisequence MR images were acquired of the brain before and after administ ration of intravenous contrast. FINDINGS: The midline structures are central and the craniocervical junction is unremarkable. There is mild prominence of the lateral ventricle and sulci consistent with normal variation for the patie nt's age. No abnormal extra-axial fluid collections are present. The brain parenchyma has no diffusion restriction to suggest acute hypoperfusion or infarction. A mi nor to mild number of small FLAIR hyperintensities are present in the supratentorial white matter. T he corpus callosum is normal. The pituitary gland is normal in size and has homogeneous contrast enh ancement and the infundibulum is midline. There are no intraorbital masses. There has been previous right lens surgery. Paranasal sinuses are unremarkable. Paranasal sinuses, middle ears and mastoids are clear. There is no abnormal enhancement in the inter nal auditory canals or labyrinthine structures. Flow voids are present in the major intracranial arteries and dural venous sinuses. A small grouping of arachnoid granulations are present in venous lakes in the right occipital bone. IMPRESSION: 1. No intracranial mass, hemorrhage or acute cerebral infarct. 2. Minor supratentorial chronic ischemic small vessel disease.
== END 2018-06-16 11:55 | disposition home or self-care (01) ==
LOC: RAD 11:54
PROVIDERS: ATTEND Internal Medicine
DX: R42 Dizziness and giddiness (principal); R41.3 Other amnesia

== ENCOUNTER 2018-07-28 10:15 | Outpatient (RCR) | payer OTHER | END 2018-07-30 23:59 | LOC: NEWBEG 10:15 | PROVIDERS: ATTEND Psychiatry & Neurology Psychiatry | DX: F41.9 Anxiety disorder, unspecified (principal); F33.1 Major depressive disorder, recurrent, moderate | CPT/HCPCS: 90792 ==

== ENCOUNTER 2018-08-30 10:00 | Outpatient (RCR) | END 2018-08-30 23:59 | LOC: NEWBEG 10:00 | PROVIDERS: ATTEND Psychiatry & Neurology Psychiatry | DX: F33.1 Major depressive disorder, recurrent, moderate (principal); F41.9 Anxiety disorder, unspecified | CPT/HCPCS: 90853; 99213 ==

== ENCOUNTER 2018-08-30 11:23 | Emergency (ER) ==
[2018-08-30 11:28] VITALS: BP 111/70; TEMP 98.8; BMI 22.8
--- NOTE | 2018-08-30 13:00 | DI ---
EXAM: Single view the pelvis. History: Pelvic pain. Comparison: Pelvic radiograph 06/15/2016 Findings: No acute fracture or dislocation. Degenerative changes within the lower lumbar spine. Mi ld narrowing of bilateral hip joints. Increased acetabular coverage of the right femoral head. No r adiopaque foreign bodies. Impression: 1. No acute osseous abnormality. 2. Mild arthritis of bilateral hip joints. 3. Increased acetabular coverage of the right femoral head can predispose to femoral acetabular impi ngement syndrome. 4. Degenerative changes in the lower lumbar spine.
--- NOTE | 2018-08-30 13:05 | DI ---
EXAM: Two views of the right hip. History: Right hip pain. Findings: No acute fracture or dislocation. Mild narrowing of the right hip joint. Increased aceta bular coverage of the right femoral head. Degenerative changes within the lower lumbar spine. Impression: 1. No acute osseous abnormality. 2. Mild arthritis of the right hip joint. 3. Increased acetabular coverage of the right femoral head can predispose to femoral acetabular impi ngement syndrome.
--- NOTE | 2018-08-30 13:05 | US ---
EXAM: Bilateral lower extremity venous Doppler History: Bilateral lower extremity pain. Technique: Multiple sonographic images through the bilateral lower extremities were obtained. Color duplex Doppler was used to interrogate vascular flow. Findings: The bilateral common femoral, greater saphenous, profunda, superficial femoral, popliteal, peroneal, posterior tibial and anterior tibial veins demonstrate spontaneous flow with normal compre ssion and normal augmentation. Impression: No sonographic evidence for deep venous thrombosis
--- NOTE | 2018-08-30 13:49 | ED.PDOC ---
General ED Provider: Dr. YESSI ADKINS Chief Complaint: Extremity Pain/Injury Stated Complaint: LOWER LEG PAIN, HIP PAIN RIGHT SIDE Time Seen by Physician: 11:33 (LEG CRAMPS BILATERAL AT NIGHTS PT WORRIED ABOUT D.V.T, ALSO RIGHT SIDED HIP PAIN) Mode of Arrival: Walk-In Information Source: Patient Exam Limitations: No limitations Primary Care Provider: ALEX HOGUE Referred to ED by: Other (THESE ISSUES ARE CHRONI NO TRAUMA REPORTED BUT PT IS WORRIED ABOUT DVT) Nursing and Triage Documentation Reviewed and Agree: Yes Does patient meet sepsis criteria?: No System Inflammatory Response Syndrome: Not Applicable Sepsis Protocol: For patient's 13 years and over: Temp is 96.8 and below OR 101 and greater Pulse >90 BPM Resp >20/minute Acutely Altered Mental Status Are patient's symptoms suggestive of a new infection, such as: -Pneumonia -Skin, Soft Tissue -Endocarditis -UTI -Bone, Joint Infection -Implantable Device -Acute Abdominal Infection -Wound Infection -Meningitis -Blood Stream Catheter Infection -Unknown Musculoskeletal Complaint Exam - Hip/Pelvis Complaint/Exam Location of Pain: Reports: Right, Hip Mechanism of Injury: Reports: No known trauma Onset/Duration: WEEKS Symptoms Are: Resolved Initial Severity: Moderate Current Severity: None Character: Reports: Spasmodic Aggravating: Reports: None Alleviating: Reports: Rest Associated Signs and Symptoms: Denies: Swelling, Redness, Bruising, Fever, Weakness, Dizziness, Syncope, Abdominal pain, Knee pain Related History: Reports: Similar episode Able to Bear Weight: Yes Septic Arthritis Risk Factors: Reports: None Related Surgical History: Reports: None Pelvis Palpation: Stable Hip/Pelvis Findings: Absent: Extremity shortened, Swelling, Ecchymosis, Erythema , Warmth, Blisters Differential Diagnoses: Sprain, Strain, Other (DVT) Review of Systems - Review Of Systems Constitutional: Reports: No symptoms Eyes: Reports: No symptoms Ears, Nose, Mouth, Throat: Reports: No symptoms Respiratory: Reports: No symptoms Cardiac: Reports: No symptoms GI: Reports: No symptoms : Reports: No symptoms Musculoskeletal: Reports: Joint pain (RIGHT HIP), Other (BILATERAL LOWER LEG) Skin: Reports: No symptoms Neurological: Reports: No symptoms Endocrine: Reports: No symptoms Hematologic/Lymphatic: Reports: No symptoms All Other Systems: Reviewed and Negative Past Medical History - Past Medical History Previously Healthy: Yes Endocrine: Reports: DM 2 Cardiovascular: Reports: Hypertension Respiratory: Reports: None Hematological: Reports: None Gastrointestinal: Reports: None Genitourinary: Reports: None Neuro/Psych: Reports: None Musculoskeletal: Reports: None Cancer: Reports: None Last Menstrual Period: none - Surgical History General Surgical History: Reports: None - Family History Family History: Reports: None - Social History Smoking Status: Former smoker Hx Substance Use: No Alcohol Screening: None Physical Exam - Physical Exam Appearance: Well-appearing, No pain distress, Well-nourished Eyes: TINO, EOMI, Conjunctiva clear ENT: Ears normal, Nose normal, Oropharynx normal Respiratory: Airway patent, Breath sounds clear, Breath sounds equal, Respirations nonlabored Cardiovascular: RRR, Pulses normal, No rub, No murmur GI/: Soft, Nontender, No masses, Bowel sounds normal, No Organomegaly Musculoskeletal: Normal strength, ROM intact, No edema, No calf tenderness Skin: Warm, Dry, Normal color Neurological: Sensation intact, Motor intact, Reflexes intact, Cranial nerves intact, Alert, Oriented Psychiatric: Affect appropriate, Mood appropriate Interpretation - Radiology Interpretation Radiology Interpretation By: Radiologist Radiology Results: No acute changes (ALL FILMS WERE HIGHLIGHTED , DISCUSSED REPORTS HANDED TO THE PT) Critical Care Note - Critical Care Note Total Time (mins): 0 Course - Course Hematology/Chemistry: 08/30/18 12:00 08/30/18 12:00 Orders, Labs, Meds: Lab Review 08/30/18 08/30/18 12:00 12:00 WBC 5.21 RBC 3.87 L Hgb 11.8 L Hct 35.1 L MCV 90.7 MCH 30.5 MCHC 33.6 RDW Coeff of Jluis 13.2 Plt Count 205 Immature Gran % (Auto) 0.2 Neut % (Auto) 55.8 Lymph % (Auto) 30.3 [place] % (Auto) 10.0 Eos % (Auto) 2.9 Baso % (Auto) 0.8 Immature Gran # (Auto) 0.0 Neut # (Auto) 2.9 Lymph # (Auto) 1.6 [place] # (Auto) 0.5 Eos # (Auto) 0.2 Baso # (Auto) 0.0 Sodium 134.1 L Potassium 4.54 Chloride 99.7 Carbon Dioxide 28.0 Anion Gap 10.94 BUN 17.2 H Creatinine 0.61 Estimated GFR (MDRD) 97.00 BUN/Creatinine Ratio 28.19 Glucose 255.6 H Calcium 9.26 Total Bilirubin 1.29 AST 32.5 ALT 33.3 Alkaline Phosphatase 82.1 Total Protein 6.83 Albumin 4.09 Globulin 2.74 Albumin/Globulin Ratio 1.49 Orders Category Date Time Status CBC W/ AUTO DIFF Stat LAB 08/30/18 12:00 Completed COMPREHENSIVE METABOLIC PANEL Stat LAB 08/30/18 12:00 Completed HIP, RIGHT 2 VIEWS Stat RADS 08/30/18 11:53 Completed PELVIS 1 OR 2 VIEWS Stat RADS 08/30/18 11:53 Completed U/S VENOUS SCAN LILLI LEGS Stat RADS 08/30/18 11:54 Completed Vital Signs: Temp Pulse Resp BP Pulse Ox 08/30/18 11:23 98.8 F 72 18 111/70 94 L Departure - Departure Time of Disposition: 13:50 (ALL REPORTS GIVEN TO THE PT ) Disposition: HOME SELF-CARE Discharge Problem: Hip pain, right Leg pain Qualifiers: Laterality: bilateral Qualified Code(s): M79.604 - Pain in right leg; M79.605 - Pain in left leg Instructions: Hip Pain (ED), Arthralgia (ED) Condition: Good Pt referred to PMD for follow-up: Yes IPMP verified?: No Additional Instructions: Please call your Family Physician as soon as possible to schedule a follow-up appointment. Allergies/Adverse Reactions: Allergies latex Adverse Reaction (Verified 08/30/18 11:28) Penicillins Adverse Reaction (Verified 08/30/18 11:28) Home Medications: Ambulatory Orders Alendronate Sodium 70 mg PO WEEKLY 11/02/13 Aspirin [Ecotrin] 81 mg PO DAILY 11/02/13 Metformin HCl 1,000 mg PO BIDAC 11/02/13 Ascorbic Acid [Vitamin C with Sherlyn Hips] 1,000 mg PO DAILY 04/27/17 Atorvastatin Calcium [Lipitor] 40 mg PO QPM 04/27/17 Ferrous Sulfate [Iron] 325 mg PO BID 04/27/17 Lisinopril 2.5 mg PO DAILY 04/27/17 [place]-3 Fatty Acids/Fish Oil [Fish Oil 1,000 mg Capsule] 1 each PO QID 04/27/17 Pantoprazole Sodium [Protonix] 40 mg PO DAILY 04/27/17 Ranitidine HCl [Zantac] 150 mg PO BIDAC 04/27/17 Naproxen [Naprosyn] 500 mg PO BID PRN 06/06/18 Acetaminophen [Tylenol] 650 mg PO Q4H PRN 08/30/18 Hydrocodone/Acetaminophen [[place] 10-325 Tablet] 1 each PO Q12HR PRN 08/30/18 Insulin Glargine,Hum.rec.anlog [Basaglar Kwikpen U-100] 20 unit SQ DAILY Inulin [Fiber Gummies] 5 gm PO DAILY 08/30/18 Latanoprost [Xalatan] 1 drop OP BEDTIME 08/30/18 Lorazepam [Ativan] 1 mg PO DAILY 08/30/18 Multivitamin 1 cap PO DAILY 08/30/18 Saxagliptin HCl [Onglyza] 5 mg PO DAILY 08/30/18 Tramadol HCl [Ultram] 50 mg PO Q6H PRN 08/30/18 Disposition Discussed With: Patient
== END 2018-08-30 14:00 | disposition home or self-care (01) ==
LOC: ED 11:23
DX: M25.551 Pain in right hip (principal); M79.605 Pain in left leg; M79.604 Pain in right leg; E11.9 Type 2 diabetes mellitus without complications; I10 Essential (primary) hypertension; Z79.899 Other long term (current) drug therapy
CPT/HCPCS: 36415; 80053; 85025; 99283

== ENCOUNTER 2018-10-20 10:00 | Outpatient (RCR) | END 2018-10-30 23:59 | LOC: NEWBEG 10:00 | PROVIDERS: ATTEND Psychiatry & Neurology Psychiatry | DX: F33.1 Major depressive disorder, recurrent, moderate (principal); F41.9 Anxiety disorder, unspecified | CPT/HCPCS: 90853 ==

== ENCOUNTER 2018-11-08 13:48 | Outpatient (CLI) | payer OTHER ==
[2018-10-23 16:07] VITALS: BMI 22.1
--- NOTE | 2018-11-09 09:49 | MRI ---
EXAM: Brain and orbit MRI with and without contrast. HISTORY: Stroke. 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 COMPARISON: Head CT 10/09/2018 and brain MRI 06/16/2018. TECHNIQUE: Multiplanar, multisequence MR images were acquired of the brain with thin sections throug h the orbits before and after administration of intravenous contrast. FINDINGS: The midline structures are central and the craniocervical junction is unremarkable. The v entricles, sulci and cisterns are normal in size and configuration for the patient's age. There are no abnormal extra-axial fluid collections. The brain parenchyma has no diffusion restriction to suggest acute hypoperfusion or infarction. A th in rim of periventricular T2 hyperintensity is present with more focal T2 hyperintensity in the bifro ntal periventricular white matter. Hazy T2 hyperintensity is present in the bilateral parieto-occipi wilfredo periventricular white matter. There are small T2 hyperintensities in the supratentorial white ma tter. These findings are compatible with minor to mild leukomalacia unchanged from previously. Ther e are no abnormal foci of dark gradient echo signal. After administration of gadolinium, no enhancin g lesions are identified. The corpus callosum is normal. The pituitary gland is normal in size and has homogeneous contrast enhancement. Thin sections through the orbits demonstrate no abnormal enhancing masses. There has been previous r ight lens surgery. Both globes are normally located. There is no abnormal contrast enhancement or b right T2 signal in the optic nerves, chiasm or proximal optic tracts. The extraocular muscles are no rmal in equal in size and signal intensity bilaterally. There is mild enlargement of the right super ior ophthalmic vein compared to the left and it tapers normally. Paranasal sinuses, middle ears and mastoids are clear. A left middle turbinate shavon bullosa is not ed that there is no abnormal contrast enhancement in the internal auditory canals or labyrinthine str uctures. Flow voids are present in the major intracranial arteries. Dural venous sinuses are patent. IMPRESSION: 1. No intraorbital mass or acute cerebral infarct. 2. Stable minor to mild supratentorial leukomalacia likely due to chronic ischemic small vessel dise ase.
== END 2018-11-08 13:49 | disposition home or self-care (01) ==
LOC: RAD 13:48
PROVIDERS: ATTEND Ophthalmology
DX: I63.9 Cerebral infarction, unspecified (principal); M31.6 Other giant cell arteritis
CPT/HCPCS: 36415; 85651; 86140

== ENCOUNTER 2018-11-24 13:28 | Outpatient (CLI) | payer OTHER ==
[2018-10-23 16:07] VITALS: BMI 22.1
--- NOTE | 2018-11-24 14:58 | US ---
EXAM: Carotid ultrasound HISTORY: Forgetfulness COMPARISON: 06/16/2018 TECHNIQUE: Carotid ultrasound was performed using Duplex imaging with turk scale, color, and Doppler imaging performed. FINDINGS: Right carotid: There is mild atherosclerosis without significant visualized area of atherosclerotic narrowing. Peak systolic velocity measurement in the right internal carotid artery is 1.13 meters pe r second. End-diastolic velocity measurement in the right internal carotid artery is 0.42 meters per second. Right internal to common carotid artery peak systolic velocity ratio is 1.3. Flow in the r ight vertebral artery is antegrade. Left carotid: There is mild atherosclerosis without significant visualized area of atherosclerotic n arrowing. Peak systolic velocity measurement in the left internal carotid artery is 0.80 meters per second. End-diastolic velocity measurement in the left internal carotid artery is 0.25 meters per se cond. Left internal to common carotid artery peak systolic velocity ratio measures 1.1. Left vertebr al artery not visualized. IMPRESSION: 1. Right internal carotid: No evidence for greater than 50% stenosis 2. Left internal carotid: No evidence for greater than 50% stenosis 3. Left vertebral artery not visualized. This is unchanged from prior examination. Antegrade flow right vertebral artery.
== END 2018-11-24 13:29 | disposition home or self-care (01) ==
LOC: RAD 13:28
PROVIDERS: ATTEND Internal Medicine
DX: E11.9 Type 2 diabetes mellitus without complications (principal); I10 Essential (primary) hypertension; R42 Dizziness and giddiness; R41.3 Other amnesia; F33.1 Major depressive disorder, recurrent, moderate; F41.9 Anxiety disorder, unspecified
CPT/HCPCS: 90853; 99213

== ENCOUNTER 2018-11-27 11:00 | Outpatient (RCR) ==
[2018-10-23 16:07] VITALS: BMI 22.1
== END 2018-11-30 23:59 ==
LOC: NEWBEG 11:00
PROVIDERS: ATTEND Psychiatry & Neurology Psychiatry
DX: F33.1 Major depressive disorder, recurrent, moderate (principal); F41.9 Anxiety disorder, unspecified
CPT/HCPCS: 90853; 99213

== ENCOUNTER 2018-12-27 11:00 | Outpatient (RCR) ==
[2018-10-23 16:07] VITALS: BMI 22.1
== END 2018-12-28 23:59 ==
LOC: NEWBEG 11:00
PROVIDERS: ATTEND Psychiatry & Neurology Psychiatry
DX: F33.1 Major depressive disorder, recurrent, moderate (principal); F41.9 Anxiety disorder, unspecified
CPT/HCPCS: 90853; 99213

== ENCOUNTER 2019-01-09 08:49 | Outpatient (CLI) ==
[2018-10-23 16:07] VITALS: BMI 22.1
--- NOTE | 2019-01-10 09:13 | MAMMO ---
EXAM: Bilateral digital screening mammogram (2-D and 3-D) History: Screening Comparison: Bilateral mammogram 01/05/2018 Findings: MLO and CC views of bilateral breasts demonstrate scattered fibroglandular breast parenchy ma. CAD was reviewed by the radiologist. Tomosynthesis was performed. There are no dominant masses , no suspicious microcalcifications and no architectural distortions Impression: Stable negative mammogram. Recommend followup routine screening mammography in 1 year. BIRADS 1, negative
== END 2019-01-09 08:50 | disposition home or self-care (01) ==
LOC: RAD 08:49
PROVIDERS: ATTEND Internal Medicine
DX: Z12.31 Encounter for screening mammogram for malignant neoplasm of breast (principal)

== ENCOUNTER 2019-01-26 10:00 | Outpatient (RCR) ==
[2018-10-23 16:07] VITALS: BMI 22.1
== END 2019-01-28 23:59 ==
LOC: NEWBEG 10:00
PROVIDERS: ATTEND Psychiatry & Neurology Psychiatry
DX: F33.1 Major depressive disorder, recurrent, moderate (principal); F41.9 Anxiety disorder, unspecified
CPT/HCPCS: 90853; 99213

== ENCOUNTER 2019-02-19 12:45 | Observation (INO) | payer OTHER ==
[2019-02-19] MEDS ORDERED: DUONEB NEB STA (12:51)
[2019-02-19] MEDS ORDERED: SOLU-MEDROL 125 MG IVP STA (12:52)
--- NOTE | 2019-02-19 14:17 | CT ---
EXAM: CT THORAX HISTORY: Cough. TECHNIQUE: CT thorax without intravenous contrast. Multiplanar images presented. COMPARISON: 10/06/2018 FINDINGS: Heart size is within normal limits. There is no pericardial effusion. The ascending thoracic aorta is upper limit normal caliber at 3.6 cm. Moderate atherosclerotic disease is seen. There is minimal discoid opacity in the left base. Lungs are otherwise clear. Normal vascularity. No pneumothorax or pleural fluid. Bones reveal small sclerotic focus in the posterior aspect of T11 which is stable and nonspecific. T here is heterogeneous breast tissue density distribution. IMPRESSION: 1. Minimal discoid opacity in the left lung base could represent mild atelectasis or subtle pneumoni a. 2. Upper limit normal. Ascending aortic caliber at 3.6 cm. 3. Atherosclerotic disease.
--- NOTE | 2019-02-19 14:48 | ED.PDOC ---
General ED Provider: Dr. YESSI ADKINS Chief Complaint: Shortness of Air Stated Complaint: cough [facility] Time Seen by Physician: 13:00 (seen with the nursing staff ) Mode of Arrival: Wheelchair Information Source: Patient Exam Limitations: No limitations Primary Care Provider: ALEX ALONSO Nursing and Triage Documentation Reviewed and Agree: Yes Does patient meet sepsis criteria?: No If yes, has appropriate treatment been initiated?: No System Inflammatory Response Syndrome: Not Applicable Sepsis Protocol: For patient's 13 years and over: Temp is 96.8 and below OR 101 and greater Pulse >90 BPM Resp >20/minute Acutely Altered Mental Status Are patient's symptoms suggestive of a new infection, such as: -Pneumonia -Skin, Soft Tissue -Endocarditis -UTI -Bone, Joint Infection -Implantable Device -Acute Abdominal Infection -Wound Infection -Meningitis -Blood Stream Catheter Infection -Unknown Respiratory Complaint Exam - Respiratory Complaint/Exam Onset/Duration: today Symptoms Are: Resolved Timing: Intermittent Initial Severity: Mild Current Severity: Mild Location: Nose, Throat, Chest Character: Reports: Non-productive cough Aggravating: Reports: URI Alleviating: Reports: Bronchodilators, Spontaneous resolution Associated Signs and Symptoms: Denies: Rapid breathing, Dyspnea, Fever, Chills, Chest pain, Pleuritic chest pain, Wheezing, Hemoptysis, Dizziness, Calf pain, Calf swelling, Edema, URI, Nasal congestion, Hoarseness, Sinus discomfort, Vomiting, Sore throat, Weight loss, Decreased oral intake, Increased thirst, Increased appetite, Increased urination History of Healthcare-Acquired Pneumonia: No Related Surgical History: Reports: None Pulmonary Embolism Risk Factors: None Cardiac Risk Factors: Reports: Diabetes, Hypertension Pseudomonas Risk Factors: Reports: None Tuberculosis Risk Factors: Reports: None Status Asthmaticus Risk Factors: Reports: None Home Oxygen Use: No Recent Stress Test: No Recent Echo/LV Function: No Current Antibiotic Use: No Current Asthma Medication Use: No Respiratory Distress: None Inadequate Respiratory Effort: No Dysphagia Present: No Stridor Present: No JVD Present: No Accessory Muscle Use: No Retractions: Not Present Diminished Breath Sounds: Yes Sinus Tenderness: None Grunting Respirations: No Kussmaul Respirations: No Differential Diagnoses: Pneumonia Review of Systems - Review Of Systems Constitutional: Reports: No symptoms Eyes: Reports: No symptoms Ears, Nose, Mouth, Throat: Reports: No symptoms Respiratory: Reports: Cough, Wheezing Cardiac: Reports: No symptoms GI: Reports: No symptoms : Reports: No symptoms Musculoskeletal: Reports: No symptoms Skin: Reports: No symptoms Neurological: Reports: No symptoms Endocrine: Reports: No symptoms Hematologic/Lymphatic: Reports: No symptoms All Other Systems: Reviewed and Negative Past Medical History - Past Medical History Previously Healthy: Yes Endocrine: Reports: DM 2 Cardiovascular: Reports: Hypertension Respiratory: Reports: None Hematological: Reports: None Gastrointestinal: Reports: None Genitourinary: Reports: None Neuro/Psych: Reports: None Musculoskeletal: Reports: None Cancer: Reports: None Last Menstrual Period: unkn own - Surgical History General Surgical History: Reports: None - Family History Family History: Reports: None - Social History Smoking Status: Never smoker Hx Substance Use: No Alcohol Screening: None Physical Exam - Physical Exam Appearance: Ill-appearing Ill-appearing: Mild Pain Distress: Mild Eyes: TINO, EOMI, Conjunctiva clear ENT: Ears normal, Nose normal, Oropharynx normal Respiratory: Airway patent, Breath sounds clear, Breath sounds equal, Respirations nonlabored Cardiovascular: RRR, Pulses normal, No rub, No murmur GI/: Soft, Nontender, No masses, Bowel sounds normal, No Organomegaly Musculoskeletal: Normal strength, ROM intact, No edema, No calf tenderness Skin: Warm, Dry, Normal color Neurological: Sensation intact, Motor intact, Reflexes intact, Cranial nerves intact, Alert, Oriented Psychiatric: Affect appropriate, Mood appropriate Interpretation - Radiology Interpretation Radiology Interpretation By: Radiologist Radiology Results: Positive (possible pneumonia) - Holistic Health Practitioner Rate: Normal Rhythm: Sinus - EKG Interpretation Rate: Normal Rhythm: Sinus [place]: Left Re-Evaluation - Re-Evaluation Time of Re-Evaluation: 14:00 Status: Improved Vital Signs Stable: Yes Pain Level: 0 Appearance: NAD Lungs: Clear Skin: Warm and Dry Neuro: Alert and Oriented X3 CV: RRR - Re-Evaluation Time of Re-Evaluation: 14:48 Status: Improved Vital Signs Stable: Yes Pain Level: 0 Appearance: NAD Skin: Warm and Dry Neuro: Alert and Oriented X3 CV: RRR Physician Notification - Case Discussed Physician Notified: alonso Time of Notification: 14:48 (admitt obs) Admit/Transition Orders Entered by ED Provider: Yes Admit To: Observation Critical Care Note - Critical Care Note Total Time (mins): 0 Course - Course Hematology/Chemistry: 02/19/19 13:05 02/19/19 13:05 Orders, Labs, Meds: Lab Review 02/19/19 02/19/19 02/19/19 12:51 13:05 13:05 WBC 7.21 RBC 4.02 L Hgb 12.0 Hct 36.4 L MCV 90.5 MCH 29.9 MCHC 33.0 RDW Coeff of Jluis 12.8 Plt Count 224 Immature Gran % (Auto) 0.3 Neut % (Auto) 64.2 Lymph % (Auto) 23.3 [place] % (Auto) 7.5 Eos % (Auto) 4.0 Baso % (Auto) 0.7 Immature Gran # (Auto) 0.0 Neut # (Auto) 4.6 Lymph # (Auto) 1.7 [place] # (Auto) 0.5 Eos # (Auto) 0.3 Baso # (Auto) 0.1 Puncture Site Rb O2 Saturation 98.0 ABG pH 7.412 ABG pCO2 35.0 ABG pO2 110.0 H ABG HCO3 22.3 ABG Total CO2 23 ABG Base Excess -2 FiO2 % 21.0 Sodium 134.5 Potassium 4.28 Chloride 99.4 Carbon Dioxide 22.3 Anion Gap 17.08 BUN 18.5 H Creatinine 0.56 L Estimated GFR (MDRD) 107.00 BUN/Creatinine Ratio 33.03 Glucose 406.0 H Calcium 9.23 Total Bilirubin 0.93 AST 19.5 ALT 18.6 Alkaline Phosphatase 106.0 Total Creatine Kinase 51.3 Troponin I < 0.012 Total Protein 6.84 Albumin 4.57 Globulin 2.27 Albumin/Globulin Ratio 2.01 Orders Category Date Time Status ABG DRAW REQUEST Stat CARDIO 02/19/19 12:51 Completed EKG-(ED ONLY) Stat CARDIO 02/19/19 12:51 Completed NEBULIZER TREATMENT Stat CARDIO 02/19/19 12:51 Completed ED IV/MEDIPORT/POWERPORT .ONCE EMERGENCY 02/19/19 12:51 Active ABG Stat LAB 02/19/19 12:51 Completed CBC W/ AUTO DIFF Stat LAB 02/19/19 13:05 Completed COMPREHENSIVE METABOLIC PANEL Stat LAB 02/19/19 13:05 Completed CREATINE KINASE Stat LAB 02/19/19 13:05 Completed TROPONIN I Stat LAB 02/19/19 13:05 Completed 0.9 % Sodium Chloride [Saline Flush] MEDS 02/19/19 12:51 Active 1 syr IVF PRN PRN Ipratropium/Albuterol Neb [Duoneb] MEDS 02/19/19 12:51 Discontinued 1 vial NEB ONCE STA Methylprednisolone Sod Succ/Pf [Solu-Medrol 125 mg] MEDS 02/19/19 12:52 Discontinued 125 [address]P ONCE [address] CHEST W/O CONTRAST Stat RADS 02/19/19 13:19 Completed Medications Generic Name Dose Route Start Last Admin Trade Name Freq PRN Reason Stop Dose Admin Sodium Chloride 1 syr 02/19/19 12:51 02/19/19 13:27 Saline Flush IVF 1 syr PRN PRN Administration To flush IV Discontinued Medications Generic Name Dose Route Start Last Admin Trade Name Freq PRN Reason Stop Dose Admin Albuterol/Ipratropium 1 vial 02/19/19 12:51 02/19/19 13:10 Duoneb NEB 02/19/19 12:52 1 vial ONCE STA Administration Methylprednisolone Sodium Succinate 125 mg 02/19/19 12:52 02/19/19 13:25 Solu-Medrol 125 Mg IVP 02/19/19 12:53 125 mg ONCE STA Administration Vital Signs: Temp Pulse Resp BP Pulse Ox 02/19/19 12:46 97.1 F L 117 H 24 125/58 L 98 Departure - Departure Time of Disposition: 14:48 Disposition: PLACED OBSERVATION Discharge Problem: Uncontrolled diabetes mellitus Qualifiers: Diabetes mellitus type: other specified (including HAFSA) Glycemic state: with hyperglycemia Qualified Code(s): E13.65 - Other specified diabetes mellitus with hyperglycemia Instructions: Dyspnea (ED) Condition: Good Pt referred to PMD for follow-up: Yes IPMP verified?: No Allergies/Adverse Reactions: Allergies lactose Adverse Reaction (Verified 02/19/19 13:02) latex Adverse Reaction (Verified 02/19/19 13:01) Penicillins Adverse Reaction (Verified 02/19/19 13:01) Home Medications: Ambulatory Orders Alendronate Sodium 70 mg PO WEEKLY 11/02/13 Aspirin [Ecotrin] 81 mg PO DAILY 11/02/13 Metformin HCl 500 mg PO BEDTIME 11/02/13 Ascorbic Acid [Vitamin C with Sherlyn Hips] 1,000 mg PO DAILY 04/27/17 Ferrous Sulfate [Iron] 325 mg PO BID 04/27/17 Lisinopril 2.5 mg PO EVERY OTHER DAY 04/27/17 [place]-3 Fatty Acids/Fish Oil [Fish Oil 1,000 mg Capsule] 1,000 mg PO TID Pantoprazole Sodium [Protonix] 40 mg PO DAILY 04/27/17 Ranitidine HCl [Zantac] 150 mg PO BIDAC 04/27/17 Acetaminophen [Tylenol] 650 mg PO Q4H PRN 08/30/18 Hydrocodone/Acetaminophen [[place] 10-325 Tablet] 7.5 mg PO Q12HR PRN 08/30/18 Insulin Glargine,Hum.rec.anlog [Basaglar Kwikpen U-100] 10 unit SQ DAILY Inulin [Fiber Gummies] 5 gm PO DAILY 08/30/18 Latanoprost [Xalatan] 1 drop OP BEDTIME 08/30/18 Saxagliptin HCl [Onglyza] 5 mg PO DAILY 08/30/18 Albuterol Sulfate [Proair Hfa] 1 puff IH TID #1 puff 10/11/18 Duloxetine HCl [Cymbalta] 30 mg PO DAILY 10/11/18 Inulin/Chromium Picolinate [Fiber Gummies] 1 each PO DAILY 02/19/19 Magnesium Oxide [Magnesium] 500 mg PO DAILY 02/19/19 Sumatriptan Succinate [Imitrex] 50 mg PO BID PRN 02/19/19 Disposition Discussed With: Patient
[2019-02-19] MEDS ORDERED: NORCO 10-325 PO PRN (14:49)
[2019-02-19] MEDS ORDERED: TYLENOL PO PRN (14:49)
[2019-02-19] MEDS ORDERED: ROCEPHIN 1 GM in SODIUM CHLORIDE 50 ML IV STA (14:53)
[2019-02-19] MEDS ORDERED: ROCEPHIN ONE (15:06)
[2019-02-19 16:10] VITALS: BMI 23.2
[2019-02-19] MEDS: DUONEB NEB SCH ×2 (17:07→23:15)
[2019-02-19] MEDS: GLUCOPHAGE PO SCH (17:28)
[2019-02-19] MEDS: ZANTAC PO SCH (17:28)
[2019-02-19] MEDS: HUMULIN R SUBCUT PRN ×2 (17:29→20:49)
[2019-02-19] MEDS ORDERED: LANTUS SUBCUT SCH (18:00)
[2019-02-19] MEDS ORDERED: [UNRECOGNIZED DRUG - OTHER] SQ SCH (18:00)
[2019-02-19] MEDS ORDERED: INSULIN GLARGINE HUM REC ANLOG 15 UNIT SQ SCH (18:00)
[2019-02-19] MEDS: OMEGA-3 FISH OIL PO SCH (20:48)
[2019-02-19] MEDS: FERROUS SULFATE PO SCH (20:53)
[2019-02-19] MEDS ORDERED: NON-FORMULARY MEDICATION (Ferrous Sulfate [Iron] 325 MG) PO SCH (21:00)
[2019-02-19] MEDS ORDERED: XALATAN OP SCH (21:00)
[2019-02-19] MEDS ORDERED: NON-FORMULARY MEDICATION (Metformin Hcl [Metformin Hcl] 1,000 MG) PO SCH (21:00)
[2019-02-19] MEDS ORDERED: NON-FORMULARY MEDICATION (Omega-3 Fatty Acids/Fish Oil [Fish Oil 1,000 Mg Capsule] 1,000 M PO SCH (21:00)
[2019-02-20 04:43] VITALS: BP 107/72; TEMP 97.7
[2019-02-20] MEDS: DUONEB NEB SCH ×2 (04:55→11:11)
[2019-02-20] MEDS: ZANTAC PO SCH (05:31)
[2019-02-20] MEDS: HUMULIN R SUBCUT PRN ×2 (05:33→11:39)
[2019-02-20] MEDS ORDERED: PROTONIX PO SCH (06:30)
[2019-02-20] MEDS ORDERED: PROAIR HFA IH PRN (06:35)
[2019-02-20] MEDS ORDERED: ASPIRIN EC PO SCH (08:00)
[2019-02-20] MEDS ORDERED: CYMBALTA PO SCH (09:00)
[2019-02-20] MEDS ORDERED: MAG-OX PO SCH (09:00)
[2019-02-20] MEDS ORDERED: NON-FORMULARY MEDICATION (Magnesium Oxide [Magnesium] 500 MG) PO SCH (09:00)
[2019-02-20] MEDS ORDERED: VITAMIN C PO SCH (09:00)
[2019-02-20] MEDS ORDERED: ASCORBIC ACID 1000 MG PO SCH (09:00)
[2019-02-20] MEDS ORDERED: ROCEPHIN 1 GM in SODIUM CHLORIDE 50 ML IV SCH (09:00)
[2019-02-20] MEDS ORDERED: ATIVAN PO SCH (09:00)
[2019-02-20] MEDS ORDERED: ONGLYZA PO SCH (09:00)
--- NOTE | 2019-02-20 09:03 | PCM.PROG ---
Attending Provider: ATTENDING PROVIDER: Dr. ALEX HOGUE This patient is seen with Kimberly Moreira, Nurse Practitioner. DATE OF SERVICE: 02/20/19 SUBJECTIVE: This 73 year old WHITE/ F was hospitalized 02/19/19. No episodes of shortness of breath through the night. Likely asthmatic exacerbation due to environmental exposure yesterday. Hyperglycemia is due to steroids. Will draw CBC to confirm elevated Potassium. REVIEW OF SYSTEMS: CONSTITUTIONAL: No night sweats. No fatigue, malaise, lethargy. No fever or chills. HEENT: Eyes: No visual changes. No eye pain. No eye discharge. ENT: No runny nose. No epistaxis. No sinus pain. No odynophagia. No congestion. RESPIRATORY: Cough, no congestion. No hemoptysis. No shortness of breath. CARDIOVASCULAR: No angina symptoms. No CHF symptoms. No atypical chest pain for CAD. No palpitations. No orthopnea.. GASTROINTESTINAL: No abdominal pain. No nausea or vomiting. No diarrhea or constipation. No hematemesis. No hematochezia. GENITOURINARY: No urgency. No frequency. No dysuria. No hematuria. No obstructive symptoms. No discharge. No pain. No significant abnormal bleeding. MUSCULOSKELETAL: No musculoskeletal pain; no joint swelling. NEUROLOGICAL: Awake, alert, oriented to time, place and person. No headache. No neck pain. No syncope. No seizures. No dizziness. PSYCHIATRIC: Not anxious. No depression. No suicidal thoughts. No homicidal thoughts. SKIN: No rash. No lesions. No wounds. ENDOCRINE: No unexplained weight loss. No weight gain. HEMATOLOGIC/LYMPHATIC: No anemia. No purpura. No petechiae. No prolonged or excessive bleeding. No palpable lymph nodes. PHYSICAL EXAMINATION: GENERAL: The patient is awake, alert and oriented, lying in bed in no distress. VITAL SIGNS: Temperature 97.7 F, Pulse 88, Respiratory Rate 18, BP 107/72, Pulse Ox 96% HEENT: Head normocephalic, atraumatic. Eyes: Extraocular muscles are intact. Pupils are equal, round and reactive to light and accommodation. Ears: No lesions. Nose appeared normal. Throat: No exudate or erythema. NECK: Supple. No JVD, no carotid bruit. No lymphadenopathy or thyromegaly. LUNGS: Diminished breath sounds. Clear to auscultation. Percussion note normal. Chest symmetrical. HEART: S1, S2, no S3. No murmurs. No cyanosis or clubbing. No ascites. Pulses: Dorsalis pedis and posterior tibial pulses +1 to +2 both sides. ABDOMEN: Soft. Non-tender. Bowel sounds active. No CVA tenderness. No mass felt. EXTREMITIES: No edema. Full range of motion of all extremities, equal. NEUROLOGIC: No focal deficit. Cranial nerves II through XII are grossly intact. No headache, no double vision or headache. SKIN: Not dry. Intact. Turgor-normal. LYMPHATIC: No palpable lymph nodes/no lymphedema. MUSCULOSKELETAL: Normal joints with no swelling. Muscle tone is normal. LAB REVIEW: 02/20/19 05:00 02/20/19 05:00 02/20/19 05:00: Sodium 138.0, Potassium 5.35 H, Chloride 102.5, Carbon Dioxide 23.8, Anion Gap 17.05, BUN 16.1, Creatinine 0.56 L, Estimated GFR (MDRD) 107.00 , BUN/Creatinine Ratio 28.75, Glucose 235.2 H D, Calcium 9.75, Total Bilirubin 0.59, AST 32.3, ALT 18.7, Alkaline Phosphatase 89.7, Total Protein 7.02, Albumin 4.78, Globulin 2.24, Albumin/Globulin Ratio 2.13 02/20/19 05:00: WBC 11.07 H, RBC 4.04 L, Hgb 11.9 L, Hct 37.1, MCV 91.8, MCH 29.5, MCHC 32.1, RDW Coeff of Jluis 13.0, Plt Count 242, Immature Gran % (Auto) 0.4, Neut % (Auto) 87.7, Lymph % (Auto) 8.3 L, [place] % (Auto) 3.3, Eos % (Auto) 0.0, Baso % (Auto) 0.3, Immature Gran # (Auto) 0.0, Neut # (Auto) 9.7 H, Lymph # (Auto) 0.9, [place] # (Auto) 0.4, Eos # (Auto) 0.0, Baso # (Auto) 0.0 02/19/19 13:05: Sodium 134.5, Potassium 4.28, Chloride 99.4, Carbon Dioxide 22.3 , Anion Gap 17.08, BUN 18.5 H, Creatinine 0.56 L, Estimated GFR (MDRD) 107.00, BUN/Creatinine Ratio 33.03, Glucose 406.0 H, Calcium 9.23, Total Bilirubin 0.93 , AST 19.5, ALT 18.6, Alkaline Phosphatase 106.0, Total Creatine Kinase 51.3, Troponin I < 0.012, Total Protein 6.84, Albumin 4.57, Globulin 2.27, Albumin/ Globulin Ratio 2.01 02/19/19 13:05: WBC 7.21, RBC 4.02 L, Hgb 12.0, Hct 36.4 L, MCV 90.5, MCH 29.9, MCHC 33.0, RDW Coeff of Jluis 12.8, Plt Count 224, Immature Gran % (Auto) 0.3, Neut % (Auto) 64.2, Lymph % (Auto) 23.3, [place] % (Auto) 7.5, Eos % (Auto) 4.0, Baso % (Auto) 0.7, Immature Gran # (Auto) 0.0, Neut # (Auto) 4.6, Lymph # (Auto ) 1.7, [place] # (Auto) 0.5, Eos # (Auto) 0.3, Baso # (Auto) 0.1 02/19/19 12:51: Puncture Site Rb, O2 Saturation 98.0, ABG pH 7.412, ABG pCO2 35.0, ABG pO2 110.0 H, ABG HCO3 22.3, ABG Total CO2 23, ABG Base Excess -2, FiO2 % 21.0 ASSESSMENT: Please see below. 1. COPD exercise with underline asthma. 2. Uncontrolled diabetes mellitus 2 likely due to steroids. PLAN: 1. A1c 2. CBC redraw 3. Discharge home 4. The patient would benefit from Nebulizer machine at home. Plan and coordination of the patient's care discussed in the presence of Business Unit Controller and nurse. SCRIBED BY: MAIKEL SU Road Patcher scribed while in presence of service performed by Dr. Hogue/Kimberly Moreira APRN on 02/20/19 ([id number])
[2019-02-20] MEDS: OMEGA-3 FISH OIL PO SCH (09:08)
[2019-02-20] MEDS: FERROUS SULFATE PO SCH (09:09)
[2019-02-20] MEDS: GLUCOPHAGE PO SCH (09:10)
[2019-02-20] MEDS ORDERED: KAYEXALATE SUSP PO STA (11:03)
[2019-02-21] MEDS ORDERED: ZESTRIL PO SCH (09:00)
[2019-02-21] MEDS ORDERED: NON-FORMULARY MEDICATION (Lisinopril [Lisinopril] 2.5 MG) PO SCH (09:00)
--- NOTE | 2019-02-21 12:44 | PN ---
DATE OF SERVICE: 02/20/19 SUBJECTIVE: The patient was seen and examined. The patient's condition is stable. She is feeling a lot better. Uncontrolled diabetes was from Decadron shot the patient had received in the emergency room. Bronchitis symptoms are better. The patient is going to be discharged on antibiotics, is going to be given 25 gm of Kayexalate for hyperkalemia. CONDITION: Stable. TIME SPENT: More than 30 minutes. Plan and coordination of the patient's care discussed in the presence of nurse. STONE
--- NOTE | 2019-02-21 12:45 | PN ---
BILLING 02/19/19 ADMISSION DAY LEVEL 5 OBSERVATION 02/20/19 DISCHARGE The patient was admitted through the office and I ended up seeing her later on in the hospital on admission day. STONE
[2019-02-26] MEDS ORDERED: FOSAMAX PO SCH (09:00)
--- NOTE | 2019-03-05 11:28 | SSS ---
DATE OF SERVICE: 02/19/19 ADMIT - 02/20/19 - DISCHARGE REASON FOR CONSULTATION/ADMISSION: Shortness of air, likely asthmatic exacerbation related to environmental exposure. Hyperglycemia due to steroids. HISTORY OF PRESENT ILLNESS: 73-year-old White/ female presented with asthmatic episode on 02/18 triggered by saez at [facility]. Second episode 02/19 while at [facility] triggered by perfume. She was sent to ER for evaluation. REVIEW OF SYSTEMS: CONSTITUTIONAL: No night sweats. No fatigue, malaise, lethargy. No fever or chills. HEENT: Eyes: No visual changes. No eye pain. No eye discharge. ENT: No runny nose. No epistaxis. No sinus pain. No sore throat. No odynophagia. No ear pain. No congestion. RESPIRATORY: Cough. No congestion. No hemoptysis. No shortness of breath. CARDIOVASCULAR: No angina symptoms. No CHF symptoms. No atypical chest pain for CAD. No palpitations. No orthopnea. GASTROINTESTINAL: No abdominal pain. No nausea or vomiting. No diarrhea or constipation. No hematemesis. No hematochezia. GENITOURINARY: No dysuria. No hematuria. No obstructive symptoms. No discharge. No pain. No significant abnormal bleeding. MUSCULOSKELETAL: No musculoskeletal pain. No joint swelling. NEUROLOGICAL: Awake, alert, oriented to time, place and person. No headache. No neck pain. No syncope. No seizures. No dizziness. PSYCHIATRIC: Not anxious. No depression. No suicidal thoughts. No homicidal thoughts. SKIN: No rash. No lesions. No wounds. ENDOCRINE: No unexplained weight loss. No weight gain. HEMATOLOGIC/LYMPHATIC: No anemia. No purpura. No petechiae. No prolonged or excessive bleeding. No palpable lymph nodes. PAST HISTORY: Glaucoma Blind right eye Hypertension High cholesterol Atypical chest pain Palpitations Edema Headache Asthma Cough Stomach ulcer Liver hemangioma GERD UTI Tonsillectomy Hysterectomy Osteoarthritis Depression Anxiety Left breast lumpectomy PERSONAL/FAMILY HISTORY/SOCIAL HISTORY: (December 2016) Daughter for emotional support Nonsmoker No alcohol use PHYSICAL EXAMINATION: GENERAL: The patient is awake, alert, oriented times four. No distress. VITAL SIGNS: Temperature 97.7, heart rate 88, respiratory rate 18, BP 107/72, 96 % on room air. HEENT: Head normocephalic, atraumatic. Eyes: Extraocular muscles are intact. Pupils are equal, round and reactive to light and accommodation. Ears: No lesions. Nose appeared normal. Throat: No exudate or erythema. NECK: Supple. No JVD, no carotid bruit. No lymphadenopathy or thyromegaly. LUNGS: Clear to auscultation. Diminished. Percussion note normal. Chest symmetrical. HEART: Regular rate and rhythm. S1, S2, no S3. No murmur. No cyanosis or clubbing. No ascites. Pulses: Dorsalis pedis and posterior tibial pulses +1 to +2 bilaterally. ABDOMEN: Soft. Nontender. Bowel sounds active. No CVA tenderness. No mass felt. EXTREMITIES: No edema. Full range of motion of all extremities, equal. NEUROLOGIC: Alert, orineted times three. No focal deficit. Cranial nerves II through XII are grossly intact. No headache, no double vision or headache. SKIN: Not dry. Intact. Turgor - normal. LYMPHATIC: No palpable lymph nodes/no lymphedema. MUSCULOSKELETAL: Normal joints with no swelling. Muscle tone is normal. Old/present records reviewed Office records reviewed. Education carried out about: COPD, anxiety. ALLERGIES: PENICILLINS, LACTOSE, LASIX MEDICATIONS: Tylenol Duonebs Fosamax Vitamin C ASA Rocephin Cymbalta Ferrous Sulfate Fish Oil [place] Lantus Xalatan Lisinopril Ativan Mag Ox Glucophage Protonix Zantac Onglyza LABS/EKG'S/X-RAY/ECHO/ABG: CT chest - minimal discoid opacity in left lung base represents mild atelectasis or subtle pneumonia. Repeat K+ 5.07, hemoglobin A1C 8.25, WBC 11.07 , p02 110, Hc03 22.3, FI02 21%. ABGs 98%, sat pH 7.412, pc02 35, base -2. PROGRESS NOTES: Shortness of breath improved with nebs and IV steroids. Chest x-ray showed no pneumonia. Will do nebs at home. Hyperglycemia worse due to steroid. Case Discussed with Attending Physician: Yes Case Discussed with Family: Yes DIAGNOSES: 1. ACUTE BRONCHITIS 2. COPD EXACERBATION WITH UNDERLYING ASTHMA 3. ANXIETY 4. DIABETES MELLITUS TYPE 2 RECOMMENDATIONS/PLAN: 1. Repeat CMP 2. Hemoglobin A1C 3. Z-pack as directed 4. Prednisone 10 mg p.o. daily times five days 5. Nebulizer for home 6. Albuterol 0.83% neb one vial q.4-6h p.r.n. wheezing, shortness of air TIME SPENT: More than 70 minutes. MTDD
== END 2019-02-20 14:25 | disposition home or self-care (01) ==
LOC: ED 12:45 → INTOOBSV 14:56 → MEDSURG B 14:56
PROVIDERS: ADMIT Internal Medicine; ATTEND Internal Medicine
DX: J20.9 Acute bronchitis, unspecified (principal); J44.1 Chronic obstructive pulmonary disease with (acute) exacerbation; E13.65 Other specified diabetes mellitus with hyperglycemia; J06.9 Acute upper respiratory infection, unspecified; R05 Cough; R06.2 Wheezing; F41.9 Anxiety disorder, unspecified
CPT/HCPCS: 36415; 80053; 82550; 82803; 82962; 83036; 84484; 85025; 90853; 93005; 93010; 94640; 96365; 96375; 99284

== ENCOUNTER 2019-02-23 11:00 | Outpatient (RCR) ==
[2018-10-23 16:07] VITALS: BMI 22.1
== END 2019-02-27 23:59 ==
LOC: NEWBEG 11:00
PROVIDERS: ATTEND Psychiatry & Neurology Psychiatry
DX: F33.1 Major depressive disorder, recurrent, moderate (principal); F41.9 Anxiety disorder, unspecified
CPT/HCPCS: 90853; 99213

== ENCOUNTER 2019-03-30 11:00 | Outpatient (RCR) | END 2019-03-30 23:59 | LOC: NEWBEG 11:00 | PROVIDERS: ATTEND Psychiatry & Neurology Psychiatry | DX: F33.1 Major depressive disorder, recurrent, moderate (principal); F41.9 Anxiety disorder, unspecified | CPT/HCPCS: 90853; 99213 ==

== ENCOUNTER 2019-04-09 06:40 | Day surgery (SDC) | payer OTHER ==
[2019-04-09] MEDS: TETRACAINE 0.5% UNIT-DOSE OP PRN ×4 (06:30→08:41)
[2019-04-09] MEDS: CYCLOGYL 2% OPTH OP PRN ×3 (06:30→06:40)
[2019-04-09] MEDS: AK-DILATE 10% OPTH SOL OP PRN ×3 (06:30→06:40)
[2019-04-09] MEDS: OCUFEN 0.03% OPTH SOL OP PRN ×4 (06:31→09:05)
[2019-04-09] MEDS ORDERED: DIAMOX PO STA (07:19)
[2019-04-09 07:23] VITALS: TEMP 97.9
[2019-04-09] MEDS: LIDOCAINE 1% 20 ML MDV ID STA ×2 (08:30→08:50)
[2019-04-09] MEDS ORDERED: VERSED ONE (08:40)
[2019-04-09 13:03] VITALS: BP 143/68
--- NOTE | 2019-04-09 14:06 | OP ---
PREOPERATIVE DIAGNOSIS:VISUALLY SIGNIFICANT BRUNESCENT CATARACT LEFT EYE. POSTOPERATIVE DIAGNOSIS: SAME. OPERATION PHACOEMULSIFICATION ASPIRATION OF CATARACT LEFT EYE. PLACEMENT OF POSTERIOR CHAMBER LENS. PHACO TIME 2.41 SECONDS AT 11% POWER. LENS MODEL TECISMAEL [id number]. DIOPTER +18.5D. TECHNIQUE: CLEAR CORNEA. ANESTHESIA: TOPICAL ANESTHESIA W/ANESTHESIA MONITORING. OPERATIVE REPORT: Topical anesthesia consisting of Tetracaine was applied to the cornea and Xylocaine Methyl Paraben free of MFP was injected intracamerally into the anterior chamber. The patient was then brought into the operating room , prepped and draped in the usual ophthalmic manner. A lid speculum was placed and the operating microscope was used. A paracentesis was made at the 3 o' clock position. A clear corneal incision was made just out to the limbus. The anterior chamber was entered just inside the clear cornea. Viscoelastic was injected into the anterior chamber. A capsulotomy was performed with a bent # 27 gauge needle. Phacoemulsification was then performed in the posterior chamber. After completion of the phacoemulsification, residual cortical material was aspirated with the irrigation-aspiration system. The posterior capsule was polished. Viscoelastic was injected into the anterior and posterior chambers to inflate the capsular bag. Lens were placed via an Unfolder system and stabilized in the bag. Viscoelastic was removed from the anterior chamber. The wound was checked for any leakage. The four sponges were removed from the fornix. Topical antibiotic steroid and nonsteroidal drops were also applied to the cornea. A Andujar shield was applied. The patient left the operating room in good condition without any complications. INTRAOPERATIVE MEDICATIONS: Xylocaine Methyl Paraben Free MPF MTDD
== END 2019-04-09 10:10 | disposition home or self-care (01) ==
LOC: SURG 06:40
PROVIDERS: ATTEND Ophthalmology
DX: H25.12 Age-related nuclear cataract, left eye (principal); H31.002 Unspecified chorioretinal scars, left eye; H50.10 Unspecified exotropia; Z96.1 Presence of intraocular lens

== ENCOUNTER 2019-05-30 11:59 | Observation (INO) ==
[2019-05-30] MEDS ORDERED: ASPIRIN CHEWABLE PO STA (12:17)
--- NOTE | 2019-05-30 13:59 | ED.PDOC ---
General ED Provider: Dr. YESSI ADKINS Chief Complaint: Chest Pain Stated Complaint: CHEST PAIN AT REST Time Seen by Physician: 12:00 (RN PRESET AT ALL TIMES ) Mode of Arrival: Wheelchair Information Source: Patient Exam Limitations: No limitations Primary Care Provider: ALEX HOGUE Nursing and Triage Documentation Reviewed and Agree: Yes Does patient meet sepsis criteria?: No System Inflammatory Response Syndrome: Not Applicable Sepsis Protocol: For patient's 13 years and over: Temp is 96.8 and below OR 101 and greater Pulse >90 BPM Resp >20/minute Acutely Altered Mental Status Are patient's symptoms suggestive of a new infection, such as: -Pneumonia -Skin, Soft Tissue -Endocarditis -UTI -Bone, Joint Infection -Implantable Device -Acute Abdominal Infection -Wound Infection -Meningitis -Blood Stream Catheter Infection -Unknown Review of Systems - Review Of Systems Constitutional: Reports: No symptoms Eyes: Reports: No symptoms Ears, Nose, Mouth, Throat: Reports: No symptoms Respiratory: Reports: No symptoms Cardiac: Reports: Chest pain GI: Reports: No symptoms : Reports: No symptoms Musculoskeletal: Reports: No symptoms Skin: Reports: No symptoms Neurological: Reports: No symptoms Endocrine: Reports: No symptoms Hematologic/Lymphatic: Reports: No symptoms All Other Systems: Reviewed and Negative Past Medical History - Past Medical History Previously Healthy: Yes Endocrine: Reports: DM 2 Cardiovascular: Reports: Hypertension Respiratory: Reports: None Hematological: Reports: None Gastrointestinal: Reports: None Genitourinary: Reports: None Neuro/Psych: Reports: None Musculoskeletal: Reports: None Cancer: Reports: None Last Menstrual Period: n/a - Surgical History General Surgical History: Reports: None - Family History Family History: Reports: None - Social History Smoking Status: Never smoker Hx Substance Use: No Alcohol Screening: None Physical Exam - Physical Exam Appearance: Well-appearing, No pain distress, Well-nourished Eyes: TINO, EOMI, Conjunctiva clear ENT: Ears normal, Nose normal, Oropharynx normal Respiratory: Airway patent, Breath sounds clear, Breath sounds equal, Respirations nonlabored Cardiovascular: RRR, Pulses normal, No rub, No murmur GI/: Soft, Nontender, No masses, Bowel sounds normal, No Organomegaly Musculoskeletal: Normal strength, ROM intact, No edema, No calf tenderness Skin: Warm, Dry, Normal color Neurological: Sensation intact, Motor intact, Reflexes intact, Cranial nerves intact, Alert, Oriented Psychiatric: Affect appropriate, Mood appropriate Re-Evaluation - Re-Evaluation Time of Re-Evaluation: 13:00 Status: Improved Vital Signs Stable: Yes Pain Level: 0 Appearance: NAD Lungs: Clear Skin: Warm and Dry Neuro: Alert and Oriented X3 CV: RRR - Re-Evaluation Time of Re-Evaluation: 14:21 Status: Improved Vital Signs Stable: Yes Pain Level: 0 Appearance: NAD Skin: Warm and Dry Neuro: Alert and Oriented X3 CV: RRR (pain free) Physician Notification - Case Discussed Physician Notified: pmd Time of Notification: 14:21 (admitt to obs ) Admit To: Observation Critical Care Note - Critical Care Note Total Time (mins): 0 Course - Course Hematology/Chemistry: 05/30/19 12:20 05/30/19 12:20 Orders, Labs, Meds: Lab Review 05/30/19 05/30/19 05/30/19 12:20 12:20 12:20 WBC 6.27 RBC 3.97 L Hgb 11.7 L Hct 36.2 L MCV 91.2 MCH 29.5 MCHC 32.3 RDW Coeff of Jluis 13.4 Plt Count 226 Immature Gran % (Auto) 0.2 Neut % (Auto) 62.2 Lymph % (Auto) 27.9 [place] % (Auto) 6.5 Eos % (Auto) 2.6 Baso % (Auto) 0.6 Immature Gran # (Auto) 0.0 Neut # (Auto) 3.9 Lymph # (Auto) 1.8 [place] # (Auto) 0.4 Eos # (Auto) 0.2 Baso # (Auto) 0.0 PT 10.4 INR 1.04 APTT 22.5 L Sodium 140.0 Potassium 4.46 Chloride 99.2 Carbon Dioxide 28.8 Anion Gap 16.46 BUN 19.9 H Creatinine 0.73 Estimated GFR (MDRD) 78.00 BUN/Creatinine Ratio 27.26 Glucose 257.6 H Calcium 9.39 Total Bilirubin 1.14 AST 24.7 ALT 21.0 Alkaline Phosphatase 67.8 Total Creatine Kinase 45.6 Troponin I < 0.012 Total Protein 6.82 Albumin 4.12 Globulin 2.70 Albumin/Globulin Ratio 1.52 Urine Color Urine Clarity Urine pH Ur Specific [place] Urine Protein Urine Glucose (UA) Urine Ketones Urine Blood Urine Nitrite Urine Bilirubin Urine Urobilinogen Ur Leukocyte Esterase 05/30/19 13:35 WBC RBC Hgb Hct MCV MCH MCHC RDW Coeff of Jluis Plt Count Immature Gran % (Auto) Neut % (Auto) Lymph % (Auto) [place] % (Auto) Eos % (Auto) Baso % (Auto) Immature Gran # (Auto) Neut # (Auto) Lymph # (Auto) [place] # (Auto) Eos # (Auto) Baso # (Auto) PT INR APTT Sodium Potassium Chloride Carbon Dioxide Anion Gap BUN Creatinine Estimated GFR (MDRD) BUN/Creatinine Ratio Glucose Calcium Total Bilirubin AST ALT Alkaline Phosphatase Total Creatine Kinase Troponin I Total Protein Albumin Globulin Albumin/Globulin Ratio Urine Color Yellow Urine Clarity Clear Urine pH 6.0 Ur Specific [place] 1.020 Urine Protein Negative Urine Glucose (UA) Trace Urine Ketones Negative Urine Blood Negative Urine Nitrite Negative Urine Bilirubin Negative Urine Urobilinogen 0.2 Ur Leukocyte Esterase Negative Orders Category Date Time Status EKG-(ED ONLY) Stat CARDIO 05/30/19 12:14 Completed EKG-(ED ONLY) Stat CARDIO 05/30/19 14:16 Ordered EKG-(IP & OP ONLY) DAILY CARDIO 05/31/19 06:00 Ordered EKG-(IP & OP ONLY) DAILY CARDIO 06/01/19 06:00 Ordered EKG-(IP & OP ONLY) DAILY CARDIO 06/02/19 06:00 Ordered ACTIVITY .Complete BR CARE 05/30/19 14:12 Ordered BLOOD GLUCOSE MONITORING ACCUCHECK Q6H CARE 05/30/19 14:12 Ordered GIVE HS SNACK 2100 CARE 05/30/19 14:13 Ordered INTAKE & OUTPUT Q8HR CARE 05/30/19 14:12 Ordered Neuro Check [NEUROLOGICAL CHECKS] Q4HR CARE 05/30/19 14:20 Ordered VITAL SIGNS Q4HR CARE 05/30/19 14:12 Ordered ADA 1800 IAN. DIET DIETARY 05/30/19 Dinner Ordered HS SNACK DIETARY 05/30/19 Dinner Ordered CBC W/ AUTO DIFF DAILY@0600 LAB 05/31/19 06:00 Ordered CBC W/ AUTO DIFF DAILY@0600 LAB 06/01/19 06:00 Ordered CBC W/ AUTO DIFF Stat LAB 05/30/19 12:20 Completed COMPREHENSIVE METABOLIC PANEL DAILY@0600 LAB 05/31/19 06:00 Ordered COMPREHENSIVE METABOLIC PANEL DAILY@0600 LAB 06/01/19 06:00 Ordered COMPREHENSIVE METABOLIC PANEL Stat LAB 05/30/19 12:20 Completed CREATINE KINASE Q8H LAB 05/30/19 20:15 Ordered CREATINE KINASE Q8H LAB 05/31/19 04:15 Ordered CREATINE KINASE Stat LAB 05/30/19 12:20 Completed PARTIAL THROMBOPLASTIN TIME Stat LAB 05/30/19 12:20 Completed PT WITH INR Stat LAB 05/30/19 12:20 Completed TROPONIN I Q8H LAB 05/30/19 20:15 Ordered TROPONIN I Q8H LAB 05/31/19 04:15 Ordered TROPONIN I Stat LAB 05/30/19 12:20 Completed URINALYSIS C & S IF INDICATED Stat LAB 05/30/19 13:35 Completed Acetaminophen [Tylenol] MEDS 05/30/19 14:13 Ordered 650 mg PO Q4H PRN Albuterol Sulfate 0.083% Neb [Albuterol 0.083% Neb] MEDS 05/30/19 14:13 Ordered 1 vial NEB RTQ4H PRN Albuterol Sulfate [Proair Hfa] MEDS 05/30/19 15:00 Ordered 1 puff IH TID Alendronate Sodium [Fosamax] MEDS 06/06/19 09:00 Ordered 70 mg PO WEEKLY Aspirin [Aspirin Chewable] MEDS 05/30/19 12:17 Discontinued 324 mg PO ONCE STA Aspirin [Aspirin EC] MEDS 05/31/19 09:00 Ordered 81 mg PO DAILY Duloxetine HCl [Cymbalta] MEDS 05/31/19 09:00 Ordered 30 mg PO DAILY Ferrous Sulfate [Iron] MEDS 05/30/19 21:00 Ordered 325 mg PO BID Hydrocodone Bit/Acetaminophen [[place] 7.5-325] MEDS 05/30/19 14:13 Ordered 1 tab PO Q12H PRN Insulin Glargine,Hum.rec.anlog [Basaglar Kwikpen U-100] MEDS 05/30/19 18:00 Ordered 10 unit SQ 1800 Inulin/Chromium Picolinate [Fiber Gummies] MEDS 05/31/19 09:00 Ordered 1 each PO DAILY Latanoprost [Xalatan] MEDS 05/30/19 21:00 Ordered 1 drop OP BEDTIME Lisinopril [Zestril] MEDS 06/01/19 09:00 Ordered 2.5 mg PO EVERY OTHER DAY Magnesium Oxide [Magnesium] MEDS 05/31/19 09:00 Ordered 500 mg PO DAILY Metformin HCl [Metformin HCl] MEDS 05/31/19 09:00 Ordered 500 mg PO DAILY Pantoprazole Sodium [Protonix] MEDS 05/31/19 09:00 Ordered 40 mg PO DAILY Prednisone MEDS 05/31/19 08:00 Ordered 10 mg PO DAILYWM Ranitidine HCl [Zantac] MEDS 05/30/19 17:00 Ordered 150 mg PO BIDAC Saxagliptin HCl [Onglyza] MEDS 05/30/19 15:00 Ordered 5 mg PO 1500 Sodium Chloride 0.9% [Sodium Chloride] 1,000 ml MEDS 05/30/19 14:30 Ordered IV 75 mls/hr Tizanidine HCl [Zanaflex] MEDS 05/30/19 21:00 Ordered [address] CHEST W/O CONTRAST Stat RADS 05/30/19 13:58 Ordered Medications Generic Name Dose Route Start Last Admin Trade Name Freq PRN Reason Stop Dose Admin Acetaminophen 650 mg 05/30/19 14:13 Tylenol PO Q4H PRN Fever >101 Hydrocodone Bitart/Acetaminophen 1 tab 05/30/19 14:13 [place] 7.5-325 PO Q12H PRN Analgesia Albuterol Sulfate 1 puff 05/30/19 15:00 Proair Hfa IH TID WALTER Albuterol Sulfate 1 vial 05/30/19 14:13 Albuterol 0.083% Neb NEB RTQ4H PRN Bronchospasm Alendronate Sodium 70 mg 06/06/19 09:00 Fosamax PO WEEKLY [facility] Aspirin 81 mg 05/31/19 09:00 Aspirin Ec PO DAILY WALTER Duloxetine HCl 30 mg 05/31/19 09:00 Cymbalta PO DAILY WALTER Sodium Chloride 1,000 mls @ 75 mls/hr 05/30/19 14:30 Sodium Chloride IV .[id number] WALTER Latanoprost 1 drop 05/30/19 21:00 Xalatan OP BEDTIME WALTER Non-Formulary Medication 325 mg 05/30/19 21:00 Ferrous Sulfate [Iron] PO BID WALTER Non-Formulary Medication 10 unit 05/30/19 18:00 Insulin Glargine,Hum.Rec.Anlog [Basaglar Kwikpen U-100] SQ 1800 WALTER Non-Formulary Medication 1 each 05/31/19 09:00 Inulin/Chromium Picolinate [Fiber Gummies] PO DAILY [facility] Non-Formulary Medication 2.5 mg 06/01/19 09:00 Lisinopril [Zestril] PO EVERY OTHER DAY [facility] Non-Formulary Medication 500 mg 05/31/19 09:00 Magnesium Oxide [Magnesium] PO DAILY [facility] Non-Formulary Medication 500 mg 05/31/19 09:00 Metformin Hcl [Metformin Hcl] PO DAILY [facility] Non-Formulary Medication 4 mg 05/30/19 21:00 Tizanidine Hcl [Zanaflex] PO BEDTIME [facility] Pantoprazole Sodium 40 mg 05/31/19 09:00 Protonix PO DAILY [facility] Prednisone 10 mg 05/31/19 08:00 Prednisone PO DAILYWM [facility] Ranitidine HCl 150 mg 05/30/19 17:00 Zantac PO BIDAC [facility] Saxagliptin Hydrochloride 5 mg 05/30/19 15:00 Onglyza PO 1500 [facility] Discontinued Medications Generic Name Dose Route Start Last Admin Trade Name Freq PRN Reason Stop Dose Admin Aspirin 324 mg 05/30/19 12:17 05/30/19 12:35 Aspirin Chewable PO 05/30/19 12:18 324 mg ONCE STA Administration Vital Signs: Temp Pulse Resp BP Pulse Ox 05/30/19 12:00 96.7 F L 69 18 143/68 H 97 RAYA Risk Score RAYA Risk Score: Risk Score Odds of by 30D 0 0.1 (0.1-0.2) 1 0.3 (0.2-0.3) 2 0.4 (0.3-0.5) 3 0.7 (0.6-0.9) 4 1.2 (1.0-1.5) 5 2.2 (1.9-2.6) 6 3.0 (2.5-3.6) 7 4.8 (3.8-6.1) Departure - Departure Time of Disposition: 14:21 Disposition: PLACED OBSERVATION Discharge Problem: Chest pain Condition: Good Pt referred to PMD for follow-up: Yes IPMP verified?: No Allergies/Adverse Reactions: Allergies lactose Adverse Reaction (Verified 05/30/19 12:08) Nausea latex Adverse Reaction (Verified 05/30/19 12:08) Rash Penicillins Adverse Reaction (Verified 05/30/19 12:08) Rash Sulfa (Sulfonamide Antibiotics) Adverse Reaction (Verified 05/30/19 12:08) Rash Home Medications: Ambulatory Orders Alendronate Sodium 70 mg PO WEEKLY 11/02/13 Aspirin [Ecotrin] 81 mg PO DAILY 11/02/13 Metformin HCl 500 mg PO DAILY 11/02/13 Ascorbic Acid [Vitamin C with Sherlyn Hips] 1,000 mg PO DAILY 04/27/17 Ferrous Sulfate [Iron] 325 mg PO BID 04/27/17 [place]-3 Fatty Acids/Fish Oil [Fish Oil 1,000 mg Capsule] 1,000 mg PO TID Pantoprazole Sodium [Protonix] 40 mg PO DAILY 04/27/17 Ranitidine HCl [Zantac] 150 mg PO BIDAC 04/27/17 Insulin Glargine,Hum.rec.anlog [Basaglar Kwikpen U-100] 10 unit SQ 1800 Latanoprost [Xalatan] 1 drop OP BEDTIME 08/30/18 Saxagliptin HCl [Onglyza] 5 mg PO 1500 08/30/18 Duloxetine HCl [Cymbalta] 30 mg PO DAILY 10/11/18 Magnesium Oxide [Magnesium] 500 mg PO DAILY 02/19/19 Albuterol Sulfate 0.083% Neb [Albuterol 0.083% Neb] 1 vial NEB RTQ4H PRN #1 vial.neb 02/20/19 Prednisone 10 mg PO DAILYWM #1 tablet 02/20/19 Hydrocodone Bit/Acetaminophen [[place] 7.5-325] 1 tab PO Q12H PRN 04/06/19 Acetaminophen [Tylenol] 650 mg PO Q4H PRN 05/30/19 Albuterol Sulfate [Ventolin Hfa] 1 puff IH TID 05/30/19 Inulin/Chromium Picolinate [Fiber Gummies] 1 each PO DAILY 05/30/19 Lisinopril [Zestril] 2.5 mg PO EVERY OTHER DAY 05/30/19 Sumatriptan Succinate [Imitrex] 50 mg PO BID PRN 05/30/19 Tizanidine HCl [Zanaflex] 4 mg PO BEDTIME 05/30/19
[2019-05-30] MEDS ORDERED: NORCO 7.5-325 PO PRN (14:13)
[2019-05-30] MEDS ORDERED: ALBUTEROL 0.083% NEB NEB PRN (14:13)
[2019-05-30] MEDS ORDERED: TYLENOL PO PRN (14:13)
--- NOTE | 2019-05-30 14:50 | CT ---
EXAM: CT Chest Without contrast HISTORY: Pain COMPARISON: 02/19/2019 TECHNIQUE: CT Chest performed without intravenous contrast. Coronal and sagital images obtained. FINDINGS: With Thoracic inlet: Normal. Normal thyroid. Heart: Normal size. No pericardial effusion. Mild coronary calcifications. Aorta: Borderline ectatic descending thoracic aorta measuring up to 3.7 cm. Scattered atherosclerotic calcifications. Lymphadenopathy: Evaluation limited by lack of IV contrast. No evidence of enlarged axillary, medias tinal or hilar lymph nodes. Esophogus: Normal. Central airway: Patent. Lungs: Clear lungs. No pleural effusion. No pneumothorax: Bones: No acute abnormality. Thoracic spondylosis. Similar nonspecific small sclerotic focus in the posterior aspect of T11. Upper abdomen: No acute findings Chest wall: Unremarkable. IMPRESSION: 1. No acute chest findings or interval change since 02/19/2019. 2. Borderline ectatic ascending aorta. 3. Atherosclerosis.
[2019-05-30] MEDS ORDERED: PROAIR HFA IH SCH (15:00)
[2019-05-30] MEDS ORDERED: ONGLYZA PO SCH (15:00)
[2019-05-30 16:11] VITALS: BMI 22.9
[2019-05-30] MEDS: SODIUM CHLORIDE 1,000 ML IV SCH (17:31)
[2019-05-30] MEDS ORDERED: [UNRECOGNIZED DRUG - OTHER] SQ SCH (18:00)
[2019-05-30] MEDS ORDERED: INSULIN GLARGINE HUM REC ANLOG 10 UNIT SQ SCH (18:00)
[2019-05-30] MEDS ORDERED: PROAIR HFA IH PRN (20:01)
[2019-05-30] MEDS ORDERED: GLUCOPHAGE PO SCH (20:30)
[2019-05-30] MEDS: NON-FORMULARY MEDICATION (Ferrous Sulfate [Iron] 325 MG) PO SCH (20:36)
[2019-05-30] MEDS: ZANTAC PO SCH (20:37)
[2019-05-30] MEDS ORDERED: NON-FORMULARY MEDICATION (Tizanidine Hcl [Zanaflex] 4 MG) PO SCH (21:00)
[2019-05-30] MEDS ORDERED: XALATAN OP SCH (21:00)
[2019-05-30] MEDS: GLUCOPHAGE PO SCH (21:39)
[2019-05-31] MEDS ORDERED: PROTONIX PO SCH (06:30)
[2019-05-31] MEDS: ZANTAC PO SCH (07:28)
[2019-05-31] MEDS: SODIUM CHLORIDE 1,000 ML IV SCH (07:42)
[2019-05-31] MEDS ORDERED: ASPIRIN EC PO SCH (08:00)
[2019-05-31] MEDS ORDERED: NON-FORMULARY MEDICATION (Metformin Hcl [Metformin Hcl] 500 MG) PO SCH (08:00)
[2019-05-31] MEDS ORDERED: PREDNISONE PO SCH (08:00)
[2019-05-31] MEDS ORDERED: NON-FORMULARY MEDICATION (Metformin Hcl [Glucophage] 1,000 MG) PO SCH (08:15)
[2019-05-31] MEDS: NON-FORMULARY MEDICATION (Ferrous Sulfate [Iron] 325 MG) PO SCH (08:22)
[2019-05-31] MEDS: GLUCOPHAGE PO SCH (08:23)
--- NOTE | 2019-05-31 08:53 | HP ---
DATE OF SERVICE: 05/31/19 (PATIENT ADMITTED ON 05/30/19) HISTORY OF PRESENT ILLNESS: This 74 year old WHITE/ F was hospitalized 05/30/19 with chest pain failrly atypical. This happened after she had a meal. She has no symptoms of CHF or coronary insufficiency with exertion. The patient is active. She doesn't smoke. She has history of diabetes mellitus and hypertension. PAST MEDICAL/SURGICAL HISTORY: Glaucoma Blindness right eye Hypertension High cholesterol Atypical chest pain Palpitations Edema Headache Asthma Cough Stomach ulcer Liver hemangioma GERD UTI Tonsillectomy Hysterectomy Left breast lumpectomy Former smoker REVIEW OF SYSTEMS: CONSTITUTIONAL: No night sweats. No fatigue, malaise, lethargy. No fever or chills. HEENT: Eyes: No visual changes. No eye pain. No eye discharge. ENT: No runny nose. No epistaxis. No sinus pain. No sore throat. No odynophagia. No ear pain. No congestion. RESPIRATORY: No cough, no congestion. No hemoptysis. No shortness of breath. CARDIOVASCULAR: Positive for chest pain with meals. No angina symptoms. No CHF symptoms. No palpitations. No PND. No orthopnea. GASTROINTESTINAL: No abdominal pain. No nausea or vomiting. No diarrhea or constipation. No hematemesis. No hematochezia. GENITOURINARY: No urgency. No frequency. No dysuria. No hematuria. No obstructive symptoms. No discharge. No pain. No significant abnormal bleeding. MUSCULOSKELETAL: No musculoskeletal pain. No joint swelling. No arthritis. NEUROLOGICAL: No headache. No neck pain. No syncope. No seizures. No dizziness. PSYCHIATRIC: Not anxious. No depression. No suicidal thoughts. No homicidal thoughts. SKIN: No rash. No lesions. No wounds. ENDOCRINE: No unexplained weight loss. No weight gain. HEMATOLOGIC/LYMPHATIC: No anemia. No purpura. No petechiae. No prolonged or excessive bleeding. No palpable lymph nodes. MEDICATIONS: (HOME) Alendronate 70 mg p.o. weekly Aspirin 81 mg p.o. daily Pantoprazole 40 mg p.o. daily [place] 3 Fatty Acids 1,000 mg p.o. t.i.d. Ranitidine 150 mg p.o. b.i.d. a.c. Ferrous sulfate 325 mg p.o. b.i.d. Ascorbic Acid 1,000 mg p.o. daily Latanoprost one drop OP bedtime Saxagliptin 5 mg p.o. 1500 Insulin Glargine 15 unit SQ 1800 Duloxetine 30 mg p.o. daily Magnesium Oxide 500 mg p.o. daily Prednisone 10 mg p.o. daily with meal Albuterol one vial NEB RT q.4h p.r.n. Hydrocodone/Acetaminophen one tab p.o. q.12h p.r.n. Sumotriptan Succinate 50 mg p.o. b.i.d. p.r.n. Albuterol one puff IH t.i.d. p.r.n. Inulin/Chromium Picolinate one each p.o. daily Atorvastatin 20 mg p.o. daily Metformin 1,000 mg p.o. b.i.d. with meal ALLERGIES: LACTOSE, LATEX, PENICILLINS, SULFA PHYSICAL EXAMINATION: GENERAL: The patient is awake, alert and oriented, lying/sitting in bed in no distress. VITAL SIGNS: Temperature 97.9 F, Pulse 60, Respiratory Rate 18, BP 134/73, Pulse Ox 98% HEENT: Head normocephalic, atraumatic. Eyes: Extraocular muscles are intact. Pupils are equal, round and reactive to light and accommodation. Ears: No lesions. Nose appeared normal. Throat: No exudate or erythema. NECK: Supple. No JVD, no carotid bruit. No lymphadenopathy or thyromegaly. LUNGS: Clear to auscultation. Percussion note normal. Chest symmetrical. HEART: S1, S2, no S3. No murmurs. No cyanosis or clubbing. No ascites. Pulses: Dorsalis pedis and posterior tibial pulses +1 to +2 both sides. ABDOMEN: Soft. Non-tender. Bowel sounds active. No CVA tenderness. No mass felt. EXTREMITIES: No edema. Full range of motion of all extremities, equal. NEUROLOGIC: No focal deficit. Cranial nerves II through XII are grossly intact. No headache, no double vision or headache. SKIN: Warm and dry. Intact. Turgor-normal. LYMPHATIC: No palpable lymph nodes/no lymphedema. MUSCULOSKELETAL: Normal joints with no swelling. Muscle tone is normal. LAB REVIEW: 05/31/19 04:10: Sodium 141.1, Potassium 4.11, Chloride 101.6, Carbon Dioxide 30.6 H, Anion Gap 13.01, BUN 16.3, Creatinine 0.74, Estimated GFR (MDRD) 77.00, BUN/Creatinine Ratio 22.02, Glucose 73.6 L D, Calcium 9.74, Total Bilirubin 1.05 , AST 29.5, ALT 22.5, Alkaline Phosphatase 80.9, Total Protein 6.76, Albumin 4.06, Globulin 2.70, Albumin/Globulin Ratio 1.50 05/31/19 04:10: WBC 5.50, RBC 4.12 L, Hgb 12.1, Hct 37.9, MCV 92.0, MCH 29.4, MCHC 31.9, RDW Coeff of Jluis 13.4, Plt Count 210, Immature Gran % (Auto) 0.2, Neut % (Auto) 45.4, Lymph % (Auto) 38.9, [place] % (Auto) 9.3, Eos % (Auto) 4.9, Baso % (Auto) 1.3, Immature Gran # (Auto) 0.0, Neut # (Auto) 2.5, Lymph # (Auto ) 2.1, [place] # (Auto) 0.5, Eos # (Auto) 0.3, Baso # (Auto) 0.1 05/31/19 04:10: Total Creatine Kinase 46.4, Troponin I < 0.012 05/30/19 20:15: Total Creatine Kinase 41.9, Troponin I < 0.012 05/30/19 13:35: Urine Color Yellow, Urine Clarity Clear, Urine pH 6.0, Ur Specific [place] 1.020, Urine Protein Negative, Urine Glucose (UA) Trace, Urine Ketones Negative, Urine Blood Negative, Urine Nitrite Negative, Urine Bilirubin Negative, Urine Urobilinogen 0.2, Ur Leukocyte Esterase Negative 05/30/19 12:20: Sodium 140.0, Potassium 4.46, Chloride 99.2, Carbon Dioxide 28.8 , Anion Gap 16.46, BUN 19.9 H, Creatinine 0.73, Estimated GFR (MDRD) 78.00, BUN/ Creatinine Ratio 27.26, Glucose 257.6 H, Calcium 9.39, Total Bilirubin 1.14, AST 24.7, ALT 21.0, Alkaline Phosphatase 67.8, Total Creatine Kinase 45.6, Troponin I < 0.012, Total Protein 6.82, Albumin 4.12, Globulin 2.70, Albumin/ Globulin Ratio 1.52 05/30/19 12:20: PT 10.4, INR 1.04, APTT 22.5 L 05/30/19 12:20: WBC 6.27, RBC 3.97 L, Hgb 11.7 L, Hct 36.2 L, MCV 91.2, MCH 29.5 , MCHC 32.3, RDW Coeff of Jluis 13.4, Plt Count 226, Immature Gran % (Auto) 0.2, Neut % (Auto) 62.2, Lymph % (Auto) 27.9, [place] % (Auto) 6.5, Eos % (Auto) 2.6, Baso % (Auto) 0.6, Immature Gran # (Auto) 0.0, Neut # (Auto) 3.9, Lymph # (Auto ) 1.8, [place] # (Auto) 0.4, Eos # (Auto) 0.2, Baso # (Auto) 0.0 ASSESSMENT: Please see below. 1. Chest pain seems noncardiac. The patient has some symptoms suggestive of gallblader disease will do ultrasound. Will check on when she had last stress test. So far, no evidence of myocardial event. PLAN: 1. Right upper quadrant ultrasound. 2. Echocardiogram. Plan and coordination of the patient's care discussed in the presence of Private Secretary and nurse. CONDITION: Stable SCRIBED BY: OSWALDO COSTA [employer] Curator scribed while in presence of service performed by Dr. ALEX HOGUE on 05/31/19 ([id number]) TIME SPENT: More than 70 minutes. STONE
[2019-05-31] MEDS ORDERED: CYMBALTA PO SCH (09:00)
[2019-05-31] MEDS ORDERED: NON-FORMULARY MEDICATION (Magnesium Oxide [Magnesium] 500 MG) PO SCH (09:00)
[2019-05-31] MEDS ORDERED: INULIN PO SCH (09:00)
[2019-05-31] MEDS ORDERED: NON-FORMULARY MEDICATION (Atorvastatin Calcium [Lipitor] 20 MG) PO SCH (09:00)
[2019-05-31] MEDS ORDERED: CHROMIUM PICOLINATE PO SCH (09:00)
[2019-05-31 10:18] VITALS: BP 114/68; TEMP 98.2
--- NOTE | 2019-05-31 11:32 | US ---
EXAM: Limited abdominal sonogram. HISTORY: Sharp right upper quadrant pain TECHNIQUE: Real time with duplex. COMPARISON: 09/27/2016 FINDINGS: The liver measures up to 11 cm in length. Portions of the liver are not well visualized secondary to rib shadowing. Visualized liver segments demonstrate normal echogencity. There is no intrahepatic biliary dilation. The portal vein is patent and antegrade. Suggestion of 1.4 cm hypoechoic area in/near the pancreatic head. The gallbladder is mild/moderately distended. The wall measures approximately 2 mm. No evidense of cholelithisis. The common bile duct measureres 5 mL. No sonographic Dia's sign. The right kidney measures 9.9 x 4.2 x 3.6 cm. There is no hydronephrosis or renal calculus. IMPRESSION: 1. No acute findings. 2. Nonspecific mild distension of the gallbladder without wall thickening, visualized cholelithiasis or pericholecystic fluid. If further concern for gallbladder pathology, consider HIDA scan.
[2019-06-01] MEDS ORDERED: NON-FORMULARY MEDICATION (Lisinopril [Zestril] 2.5 MG) PO SCH (09:00)
--- NOTE | 2019-06-01 12:52 | ECHO2D ---
Date of Exam: 05/31/19 Ordering Physician: DR. ALEX HOGUE Room #: 121 Reason for Echo: CHEST PAIN, UNCONTROLLED DIABETES, SOB M-Mode Normal Adult Results LV Dimensions Normal Adult Results AoV Opening excursions >1.6 >1.6 LVEDD-base- 3.5-5.8 4.0 Ao root dimensions 2.0-3.7 3.3 LVESD-base- 3.1-4.6 L. Atrium dimensions 1.9-3.8 3.1 Post. Wall thickness 0.8-1.1 1.2 IV septum (thickness) 0.7-1.2 1.2 Post. Wall excursion 0.72-1.3 NORMAL Septal motion NORMAL Systolic motion R. Ventricular cavity 1.5-2.0 NORMAL LVEF 60% 60% Paradoxical septal wall motion NORMAL 2-D : MITRAL VALVE PROLAPSE NOTED ON LEFT PARASTERNAL LONG AXIS AND APICAL FOR CHAMBER VIEW, WAS OTHERWISE NORMAL --NO EFFUSION, NO THROMBUS, NORMAL LEFT VENTRICLE AND LEFT ATRIAL SIZE M-MODE: MV: MITRAL VALVE PROLAPSE (LATE SYSTOLIC) AV: NORMAL TV: NORMAL PV: CHAMBER SIZE: NORMAL WALL MOTION: NORMAL PERICARDIUM: NORMAL INTERPRETATION: 1. 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 NORMAL LEFT VENTRICLE SIZE AND LEFT ATRIAL SIZE 3. NORMAL LEFT VENTRICULAR CONTRACTILITY MTDD
--- NOTE | 2019-06-05 08:02 | DS ---
DATE OF SERVICE: 05/31/19 l (24 hour admission) FINAL DIAGNOSIS: 1. CHEST PAIN, ETIOLOGY NONCARDIAC 2. GALLBLADDER DISEASE DISCHARGE INSTRUCTIONS: Followup appointment with Dr. Goldman/Kimberly Moreira APRN on Tuesday, June 04, 2019 @ [id number]. Please call [phone] to reschedule if unable to keep that appointment. An outpatient appointment has been scheduled for tomorrow, June 01, 2019 at 8 a.m. for a HIDA scan. Please arrive at outpatient registration at [facility] 15 minutes prior to your appointment time. Nothing to eat or drink after midnight tonight. MEDICATIONS AT DISCHARGE: Alendronate Sodium 70 mg p.o. weekly Aspirin 81 mg p.o. daily Protonix 40 mg p.o. daily [place]-3 Fatty Acids/Fish Oil 1,000 mg p.o. t.i.d. Ranitidine 150 mg p.o. b.i.d. a.c. Ferrous [id number] mg p.o. b.i.d. Ascorbic Acid 1,000 mg p.o. daily Latanoprost (Xalatan) one drop OP bedtime Saxagliptin (Onglyza) 5 mg p.o. 1500 Insulin Glargine 15 unit SQ 1800 Duloxetine 30 mg p.o. daily Magnesium Oxide 500 mg p.o. daily Albuterol. Sulfate neb RT q.4h p.r.n. Hydrocodone/Acetaminophen one tab p.o. q.12h p.r.n. Sumatriptan Succinate 50 mg p.o. b.i.d. p.r.n. Albuterol one puff IH t.i.d. p.r.n. Inulin/Chromiun Picolinate one each p.o. daily Atorvastatin 20 mg p.o. daily Metformin 1,000 mg p.o. b.i.d. with meal NEW PRESCRIPTIONS: None DISCONTINUED MEDICATIONS: Prednisone 10 mg daily No Aleve No Ibuprofen No NSAIDS DIET INSTRUCTIONS: Diabetic, low fat, avoid spicy foods ACTIVITY: Plenty of rest at home. SMOKING: Never smoker DISEASE SPECIFIC EDUCATION: Diet Gallbladder disease HOSPITAL COURSE: This 74-year-old White/ female was hospitalized with chest pain. The patient's chest pain was noncardiac, sharp and shooting pain related to exertion. The patient also had gallbladder disease type of symptoms. The patient 's cardiac markers were negative. EKG sinus rhythm unchanged, no acute changes. The patient is to undergo HIDA scan as an outpatient. She was advised to continue all the medications as before. Condition at time of discharge stable. TIME SPENT: More than 60 minutes. STONE
--- NOTE | 2019-06-05 09:34 | PN ---
BILLING The patient was admitted as a 24 hour observation on 05/30/19, discharged = Extensive Level 5 MTDD
[2019-06-06] MEDS ORDERED: FOSAMAX PO SCH (06:30)
== END 2019-05-31 14:12 | disposition home or self-care (01) ==
LOC: ED 11:59 → MEDSURG B 14:21
PROVIDERS: ADMIT Internal Medicine; ATTEND Internal Medicine
DX: E11.9 Type 2 diabetes mellitus without complications; I10 Essential (primary) hypertension; K82.9 Disease of gallbladder, unspecified

== ENCOUNTER 2019-06-29 10:00 | Outpatient (RCR) | payer OTHER | END 2019-06-30 23:59 | LOC: NEWBEG 10:00 | PROVIDERS: ATTEND Psychiatry & Neurology Psychiatry | DX: F33.1 Major depressive disorder, recurrent, moderate (principal); F41.9 Anxiety disorder, unspecified | CPT/HCPCS: 90853; 99213 ==

== ENCOUNTER 2022-08-23 15:42 | Inpatient (IN) ==
[2022-08-23 17:54] VITALS: BMI 23.1
[2022-08-26 05:38] VITALS: BP 147/82; TEMP 96.2
== END 2022-08-26 13:56 | disposition home or self-care (01) | DRG 638 ==
LOC: LAB 15:42 → MEDSURG A 16:43
PROVIDERS: ADMIT Internal Medicine; ATTEND Internal Medicine
DX: Z51.81 Encounter for therapeutic drug level monitoring; Z79.4 Long term (current) use of insulin; E11.65 Type 2 diabetes mellitus with hyperglycemia; K29.00 Acute gastritis without bleeding; E78.5 Hyperlipidemia, unspecified; R10.9 Unspecified abdominal pain; R26.2 Difficulty in walking, not elsewhere classified; R53.1 Weakness; I10 Essential (primary) hypertension; E87.6 Hypokalemia; E86.0 Dehydration; B96.1 Klebsiella pneumoniae [K. pneumoniae] as the cause of diseases classified elsewhere; K21.9 Gastro-esophageal reflux disease without esophagitis; Z91.81 History of falling; Z79.84 Long term (current) use of oral hypoglycemic drugs; Z79.899 Other long term (current) drug therapy; R63.4 Abnormal weight loss; Z20.822 Contact with and (suspected) exposure to COVID-19; N39.0 Urinary tract infection, site not specified

== ENCOUNTER 2024-06-30 06:15 | Inpatient (IN) ==
--- NOTE | 2024-06-30 06:27 | ED.PDOC ---
General <YESSI VITALE MD - Last Filed: 06/30/24 07:14> ED Provider: Dr. YESSI VITALE MD Chief Complaint: Stroke Stated Complaint: Patient with a history of mitral valve prolapse, asthma, hypertension, chronic anemia, patient called her sister this morning states that she felt hot and her sister noticed that her speech was slurred last known normal was last night patient voice was normal. Arrived emergency room patient's speech was slurred again dysarthric) alert resolved. Patient also complained of transient visual changes. Patient also complains of a headache pain scale 8/10 Time Seen by Provider: 06/30/24 06:20 Mode of Arrival: Wheelchair Information Source: Family Exam Limitations: Clinical condition Primary Care Provider: ALEX HOGUE MD Nursing and Triage Documentation Reviewed and Agree: Yes What is Opioid Naive?: *Opioid Naive implies the patient is not already taking opioids or not chronically receiving opioids on a daily basis. *PRN dosing is not "usually" associated with tolerance. *Patients are at higher risk of over-sedation and aspiration. What is Opioid Tolerant?: *Opioid Tolerance implies less than the expected response to an opioid. *Acquired tolerance is defined by the patient taking 60mg of oral morphine daily (or equianalgesic dose of another opioid) for 1 week or more. *Often associated with chronic pain. *May take more than usual dose to achieve desired pain control. Review of Systems <YESSI VITALE MD - Last Filed: 06/30/24 07:14> Review Of Systems Constitutional: Reports No symptoms Eyes: Reports Blindness (Clinical blindness left eye) Ears, Nose, Mouth, Throat: Reports No symptoms Respiratory: Reports No symptoms Cardiac: Reports No symptoms GI: Reports No symptoms : Reports No symptoms Musculoskeletal: Reports No symptoms Skin: Reports No symptoms Neurological: Reports Headache (Left-sided weakness, slurred speech dysarthric speech) Endocrine: Reports No symptoms Hematologic/Lymphatic: Reports No symptoms All Other Systems: Reviewed and Negative PFSH <YESSI VITALE MD - Last Filed: 06/30/24 07:14> Medical History Abdominal hernia without obstruction or gangrene K46.9 - Unspecified abdominal hernia without obstruction or gangrene (ICD- 10) Hiatal hernia K44.9 - Diaphragmatic hernia without obstruction or gangrene (ICD-10) Depression F32.A - Depression, unspecified (ICD-10) Blind left eye H54.40 - Blindness, one eye, unspecified eye (ICD-10) Glaucoma H40.9 - Unspecified glaucoma (ICD-10) Asthmatic bronchitis J45.909 - Unspecified asthma, uncomplicated (ICD-10) GERD (gastroesophageal reflux disease) K21.9 - Gastro-esophageal reflux disease without esophagitis (ICD-10) Osteopenia M85.80 - Other specified disorders of bone density and structure, unspecified site (ICD-10) Liver hemangioma D18.03 - Hemangioma of intra-abdominal structures (ICD-10) Tremor of left hand R25.1 - Tremor, unspecified (ICD-10) Sciatica, right side M54.31 - Sciatica, right side (ICD-10) Degenerative joint disease (DJD) of lumbar spine M47.816 - Spondylosis without myelopathy or radiculopathy, lumbar region (ICD-10) Degenerative joint disease of spine M47.9 - Spondylosis, unspecified (ICD-10) Diverticula of colon K57.30 - Diverticulosis of large intestine without perforation or abscess without bleeding (ICD-10) Seasonal allergies J30.2 - Other seasonal allergic rhinitis (ICD-10) Family History FATHER Diabetes Social History Smoking and tobacco status: Never smoker Alcohol intake: never Substance use type: does not use Special luz needs: No Agree to transfusion: Yes Adopted: No Caregiver/support person: No Foster care: No Household members: none Housing: house Marital status: W / Lives independently: Yes Number of children: 6 service: No USP: No History of recent travel: No Sexually active: No Do you think of yourself as: straight/heterosexual Current gender identity: female Seatbelt use: always Drives intoxicated or rides with intoxicated regional dedicated truck driver: No Water heater temperature set < 120 degrees: Yes Working smoke detector in home: Yes Fire extinguisher in home: Yes Carbon monoxide detector in home: Yes Firearms in home: No Surgical History History of lumbar surgery Z98.890 - Other specified postprocedural states (ICD-10) Cataract H26.9 - Unspecified cataract (ICD-10) Status post trigger finger release right Z98.890 - Other specified postprocedural states (ICD-10) History of hernia repair erik Z98.890 - Other specified postprocedural states (ICD-10) Z87.19 - Personal history of other diseases of the digestive system (ICD-10) Female Reproductive History Menstrual Hx Hysterectomy: Yes Hx Tubal Ligation: No Physical Exam <YESSI VITALE MD - Last Filed: 06/30/24 07:14> Physical Exam Appearance: Reports Ill-appearing Ill-appearing: Mild Pain Distress: None Eyes: Reports TINO and EOMI ENT: Reports Ears normal, Nose normal and Oropharynx normal Neck: Supple Respiratory: Reports Airway patent, Breath sounds clear, Breath sounds equal and Breath sounds diminished Cardiovascular: Reports RRR, Pulses normal and No rub GI/: Reports Soft, Nontender, No masses and Bowel sounds normal Musculoskeletal: Reports Normal strength, ROM intact and No edema Skin: Reports Warm and Dry Neurological: Reports Alert, Oriented and Other (There is left hemiparesis Michael hypoesthesia there is right facial hypoesthesia without paresis or paralysis) Psychiatric: Reports Affect appropriate and Mood appropriate <YESSI VITALE MD - Last Filed: 06/30/24 07:14> NIH Stroke Scale 1a. Level of Consciousness: 0=Alert and keenly responsive 1b. Level of Consciousness Questions: 0=Answers correctly to two questions 1c. Level of Consciousness Commands: 1=Performs one task correctly 2. Best Gaze: 0=Normal 3. Visual: 0=No visual loss (Chronic blindness in the left eye probably) 5a. Motor Left Arm: 1=Drifts before 10 seconds arm, 5 seconds leg 5b. Motor Right Arm: 0=No drift,arm holds 90 degrees for 10 sec., leg 30 degrees for 5 sec. 6a. Motor Left Le=Drifts before 10 seconds arm, 5 seconds leg 6b. Motor Right Le=No drift,arm holds 90 degrees for 10 sec., leg 30 degrees for 5 sec. 7. Limb Ataxia: 2=Present in two or more limbs 8. Sensory: 1=Mild to moderate sensory loss 9. Best Language: 0=No aphasia 10. Dysarthria: 0=Normal (Initial slurred speech and dysarthria has resolved) 11. Extincion and Inattention: 0=Normal Stroke Scale Total: 6 <TONIA MART DO - Last Filed: 06/30/24 10:14> NIH Stroke Scale Stroke Scale Total: 6 Re-Evaluation <TONIA MART DO - Last Filed: 06/30/24 10:14> Re-Evaluation Time of Re-Evaluation: 09:00 Re-Evaluation Additional Comments: I received signout regarding this patient from the overnight physician. Patient suspected to have a stroke with left-sided weakness. Her weakness is persistent on the left at the time of shift turnover. I spoke with neurology at [facility] who recommended a CTA of the head and neck. This was subsequently negative for any obvious thrombosis or significant stenosis. The patient's vitals have remained stable. Since her initial CT is negative and although the CTA showed a hypodensity in the left frontal lobe which would not correlate with her physical exam findings, she is outside any thrombolytic window or interventional window at this time. That said, if we are able to complete some of the imaging workup while we await a bed at [facility] since they said that they are full and we are not sure when a bed will become available, my suspicion is this patient needs to be observed for at least 24 hours in the case of any repeat event while she is medically optimized. I have given her a dose of full dose aspirin in the meantime. She states that she feels better overall. I spoken with our hospitalist service regarding possibly observing this patient here and plan for transfer to a rehab facility given her weakness. I do feel this would be beneficial to the patient and may not necessitate a transfer. Awaiting word back from the hospitalist. Brief swallow study at bedside past. Hospitalist service has gotten back to me and gracious to accept this patient. We appreciate your help taking care of this patient Critical Care Note <TONIA MART DO - Last Filed: 06/30/24 10:14> Critical Care Note Total Critical Care Time (mins): 100 Comments: Stroke pt. multiple bedside reassessments. Attention to cardiac output measures. Interpretation of CTs and laboratory workup. Course <YESSI VITALE MD - Last Filed: 06/30/24 07:14> Course 06/30/24 06:50 06/30/24 06:50 Orders, Labs, Meds: Lab Review 06/30/24 06/30/24 06:50 09:50 WBC 7.79 RBC 4.50 Hgb 12.2 Hct 39.8 MCV 88.4 MCH 27.1 MCHC 30.7 L RDW Coeff of Jluis 14.5 Plt Count 199 Immature Gran % (Auto) 0.4 Neut % (Auto) 68.0 Lymph % (Auto) 21.4 [place] % (Auto) 7.8 Eos % (Auto) 1.5 Baso % (Auto) 0.9 Neut # (Auto) 5.3 Lymph # (Auto) 1.7 [place] # (Auto) 0.6 Eos # (Auto) 0.1 Baso # (Auto) 0.1 Immature Gran # (Auto) 0.0 PT 10.0 INR 0.96 APTT 21.1 L Sodium 139.0 Potassium 3.94 Chloride 104.1 Carbon Dioxide 26.8 Anion Gap 12.04 BUN 17.4 H Creatinine 0.70 Estimated GFR (MDRD) 81.00 BUN/Creatinine Ratio 24.85 Glucose 114.8 H Calcium 9.03 Magnesium 2.03 Total Bilirubin 1.90 H AST 33.4 ALT 24.7 Alkaline Phosphatase 108.5 Troponin I < 0.012 Total Protein 7.04 Albumin 4.13 Globulin 2.91 Albumin/Globulin Ratio 1.41 SARS CoV-2 RNA Rapid ALISON Negative Orders Category Date Time Status ADMIT PATIENT INPATIENT .TO [facility] (MONITORED BED) ADMISSION 06/30/24 10:06 Active EKG-(ED ONLY) Stat CARDIO 06/30/24 06:27 Completed NPO REMINDER: IMAGING ONCE CARE 06/30/24 07:26 Active TELEMETRY MONITORING TELE CARE 06/30/24 10:06 Active Compliance Representative [ED MOTOR COACH TOUR OPERATOR APPLIED] .ONCE EMERGENCY 06/30/24 06:27 Active CBC W/ AUTO DIFF Stat LAB 06/30/24 06:50 Completed CMP [COMPREHENSIVE METABOLIC PANEL] Stat LAB 06/30/24 06:50 Completed COVID [SARS COV-2 RNA RAPID ALISON] Stat LAB 06/30/24 Uncollected MAGNESIUM Stat LAB 06/30/24 06:50 Completed PT WITH INR Stat LAB 06/30/24 06:50 Completed PTT [PARTIAL THROMBOPLASTIN TIME] Stat LAB 06/30/24 06:50 Completed SARS COV-2 RNA RAPID ALISON Stat LAB 06/30/24 09:50 Completed TROPONIN I Stat LAB 06/30/24 06:50 Completed Acetaminophen [Tylenol] Meds 06/30/24 06:34 Discontinued 650 mg PO ONCE STA Aspirin [Aspirin Chewable] Meds 06/30/24 07:20 Discontinued 324 mg PO ONCE STA Sodium Chloride 0.9% [Sodium Chloride] 1,000 ml Meds 06/30/24 06:28 Active IV 30 mls/hr CHEST, 1V AP ONLY Stat RADS 06/30/24 06:[address] HEAD W/O CONTRAST Stat RADS 06/30/24 06:27 Completed CTA ANGIO HEAD Stat RADS 06/30/24 07:26 Completed CTA ANGIO NECK Stat RADS 06/30/24 07:26 Completed Medications Generic Name Dose Route Start Last Admin Trade Name Freq PRN Reason Stop Dose Admin Sodium Chloride 1,000 mls @ 30 mls/hr 06/30/24 06:28 06/30/24 09:40 Sodium Chloride IV 07/01/24 15:47 Not Given .[id number] Discontinued Medications Generic Name Dose Route Start Last Admin Trade Name Freq PRN Reason Stop Dose Admin Acetaminophen 650 mg 06/30/24 06:34 06/30/24 07:07 Acetaminophen 325 Mg Tablet PO 06/30/24 06:35 Not Given ONCE STA Aspirin 324 mg 06/30/24 07:20 06/30/24 07:25 Aspirin 81 Mg Tab.Chew PO 06/30/24 07:21 324 mg ONCE STA Administration Vital Signs: Temp Pulse Resp BP Pulse Ox 06/30/24 06:21 97.6 F 64 22 H 135/77 98 <TONIA MART, DO - Last Filed: 06/30/24 10:14> Course Orders, Labs, Meds: Lab Review 06/30/24 06/30/24 06:50 09:50 WBC 7.79 RBC 4.50 Hgb 12.2 Hct 39.8 MCV 88.4 MCH 27.1 MCHC 30.7 L RDW Coeff of Jluis 14.5 Plt Count 199 Immature Gran % (Auto) 0.4 Neut % (Auto) 68.0 Lymph % (Auto) 21.4 [place] % (Auto) 7.8 Eos % (Auto) 1.5 Baso % (Auto) 0.9 Neut # (Auto) 5.3 Lymph # (Auto) 1.7 [place] # (Auto) 0.6 Eos # (Auto) 0.1 Baso # (Auto) 0.1 Immature Gran # (Auto) 0.0 PT 10.0 INR 0.96 APTT 21.1 L Sodium 139.0 Potassium 3.94 Chloride 104.1 Carbon Dioxide 26.8 Anion Gap 12.04 BUN 17.4 H Creatinine 0.70 Estimated GFR (MDRD) 81.00 BUN/Creatinine Ratio 24.85 Glucose 114.8 H Calcium 9.03 Magnesium 2.03 Total Bilirubin 1.90 H AST 33.4 ALT 24.7 Alkaline Phosphatase 108.5 Troponin I < 0.012 Total Protein 7.04 Albumin 4.13 Globulin 2.91 Albumin/Globulin Ratio 1.41 SARS CoV-2 RNA Rapid ALISON Negative Orders Category Date Time Status ADMIT PATIENT [facility] .[facility] ([facility]) ADMISSION 06/30/24 10:06 Active EKG-(ED ONLY) Stat CARDIO 06/30/24 06:27 Completed NPO REMINDER: IMAGING ONCE CARE 06/30/24 07:26 Active TELEMETRY MONITORING TELE CARE 06/30/24 10:06 Active Compliance Representative [ED MOTOR COACH TOUR OPERATOR APPLIED] .ONCE EMERGENCY 06/30/24 06:27 Active CBC W/ AUTO DIFF Stat LAB 06/30/24 06:50 Completed CMP [COMPREHENSIVE METABOLIC PANEL] Stat LAB 06/30/24 06:50 Completed COVID [SARS COV-2 RNA RAPID ALISON] Stat LAB 06/30/24 Uncollected MAGNESIUM Stat LAB 06/30/24 06:50 Completed PT WITH INR Stat LAB 06/30/24 06:50 Completed PTT [PARTIAL THROMBOPLASTIN TIME] Stat LAB 06/30/24 06:50 Completed SARS COV-2 RNA RAPID ALISON Stat LAB 06/30/24 09:50 Completed TROPONIN I Stat LAB 06/30/24 06:50 Completed Acetaminophen [Tylenol] Meds 06/30/24 06:34 Discontinued 650 mg PO ONCE STA Aspirin [Aspirin Chewable] Meds 06/30/24 07:20 Discontinued 324 mg PO ONCE STA Sodium Chloride 0.9% [Sodium Chloride] 1,000 ml Meds 06/30/24 06:28 Active IV 30 mls/hr CHEST, 1V AP ONLY Stat RADS 06/30/24 06:[address] HEAD W/O CONTRAST Stat RADS 06/30/24 06:27 Completed CTA ANGIO HEAD Stat RADS 06/30/24 07:26 Completed CTA ANGIO NECK Stat RADS 06/30/24 07:26 Completed Medications Generic Name Dose Route Start Last Admin Trade Name Freq PRN Reason Stop Dose Admin Sodium Chloride 1,000 mls @ 30 mls/hr 06/30/24 06:28 06/30/24 09:40 Sodium Chloride IV 07/01/24 15:47 Not Given .[id number] Discontinued Medications Generic Name Dose Route Start Last Admin Trade Name Freq PRN Reason Stop Dose Admin Acetaminophen 650 mg 06/30/24 06:34 06/30/24 07:07 Acetaminophen 325 Mg Tablet PO 06/30/24 06:35 Not Given ONCE STA Aspirin 324 mg 06/30/24 07:20 06/30/24 07:25 Aspirin 81 Mg Tab.Chew PO 06/30/24 07:21 324 mg ONCE STA Administration Vital Signs: Temp Pulse Resp BP Pulse Ox 06/30/24 06:21 97.6 F 64 22 H 135/77 98 <YESSI VITALE MD - Last Filed: 06/30/24 07:14> Physician Progress Note: History obtained from patient was her sister patient has a history of asthma, hypertension, mitral valve prolapse, lumbar radiculopathy. Patient says she called her sister this morning because she felt hot diaphoretic and her speech was slurred. Sister states she spoke with her sister last night and her speech was normal. Patient arrives emergency room pH initially slurred. Dysarthric and then clear. NIH stroke scale was 6 0622-EKG consistent normal sinus rhythm rate of 65 occasional PVCs. There is left intrafascicular block. There is nonspecific ischemic changes noted anteroseptally. Head CT scan interpretation by the radiologist shows no acute intracranial hemorrhage, mass effect or fluid collection. Differential diagnosis: 1)acute ischemic CVA Patient care endorsed to Dr Mart at 0710 Discharge Plan Discharge Patient Disposition: ADMITTED INPATIENT Discharge Problem: Stroke Prescriptions: No Action (DME) pen needle, diabetic [TRUEplus Pen Needle] 31 gauge x 3/16" needle See Rx Instructions .ROUTE .COMPLEX Qty: 100 5RF Dose Instruction: USE DIRECTED DAILY Rx Instructions: USE DIRECTED DAILY albuterol sulfate [Ventolin HFA] 90 mcg/actuation HFA aerosol inhaler 1 puff inhalation TID PRN (Reason: SOB) Qty: 8.5 5RF (DME) Contour Next Test Strips Strip See Rx Instructions .ROUTE Qty: 100 5RF Rx Instructions: As directed (DME) lancets [Sure Comfort Lancets] 30 gauge misc See Rx Instructions .ROUTE .COMPLEX Qty: 100 5RF Dose Instruction: TEST DAILY Rx Instructions: TEST DAILY sucralfate 1 gram tablet See Rx Instructions .ROUTE .COMPLEX Qty: 120 3RF Dose Instruction: TAKE ONE TABLET BEFORE MEALS AND AT BEDTIME Rx Instructions: TAKE ONE TABLET BEFORE MEALS AND AT BEDTIME atorvastatin 80 mg tablet See Rx Instructions .ROUTE .COMPLEX Qty: 30 3RF Dose Instruction: TAKE ONE TABLET DAILY Rx Instructions: TAKE ONE TABLET DAILY Jardiance 25 mg tablet See Rx Instructions .ROUTE .COMPLEX Qty: 30 2RF Dose Instruction: TAKE ONE TABLET DAILY Rx Instructions: TAKE ONE TABLET DAILY duloxetine 60 mg capsule,delayed release(DR/EC) See Rx Instructions .ROUTE .COMPLEX Qty: 30 2RF Dose Instruction: TAKE ONE CAPSULE DAILY Rx Instructions: TAKE ONE CAPSULE DAILY pantoprazole 40 mg tablet,delayed release (DR/EC) See Rx Instructions .ROUTE .COMPLEX Qty: 60 2RF Dose Instruction: TAKE ONE TABLET TWICE DAILY Rx Instructions: TAKE ONE TABLET TWICE DAILY metformin 1,000 mg tablet See Rx Instructions .ROUTE .COMPLEX Qty: 30 2RF Dose Instruction: TAKE ONE TABLET DAILY Rx Instructions: TAKE ONE TABLET DAILY latanoprost 1 DROP drops 1 drp BOTHEYES BEDTIME fluticasone propionate [Flonase Allergy Relief] 50 mcg/actuation spray,suspension 1 spray intranasal QDAY Qty: 16 1RF Rx Instructions: administer into each nostril potassium chloride 20 mEq tablet extended release 20 meq PO QDAY Qty: 7 0RF tramadol 100 mg tablet 100 mg PO TID PRN (Reason: pain) Qty: 90 2RF Rx Instructions: DNExceed 3 doses/24h insulin glargine [Lantus Solostar U-100 Insulin] 100 unit/mL (3 mL) insulin pen 25 unit subcut QDAY Did you review [place] DRAFTER SEISMOGRAPH for ALL controlled substances?: Not Applicable ED Provider: TONIA MART Condition: Stable Waucoma Coma Scale <YESSI VITALE MD - Last Filed: 06/30/24 07:14> Marzena Coma Scale Response Scores: Best Response = 15 Comatose Client = 8 or Less Totally Unresponsive = 3
--- NOTE | 2024-06-30 06:57 | CT ---
EXAM: CT OF THE HEAD WITHOUT CONTRAST History: Slurred speech. Comparison: Head CT 09/06/2023 Technique: Multiplanar CT images through the head were obtained without the administration of IV con trast FINDINGS: The visualized paranasal sinuses and mastoid air cells are clear in general. No acute edgar varial abnormalities. Intracranially the ventricular and cisternal spaces are normal in size, shape and configuration for a patient of this age. No dominant mass or midline shift. No hydrocephalous. No acute intracranial hemorrhage or abnormal extraaxial fluid collections. Impression: No acute intracranial process. Critical results communicated to Dr. Malone at 6:52 a.m. 06/30/[address] scans are performed using dose optimization techniques as appropriate to the performed exam an d include at least one of the following: Automated exposure control, adjustment of the mA and/or kV according t o size, and the use of iterative reconstruction technique.
[2024-06-30 06:58] LABS: BASOPHILS # (AUTO) 0.1 K/uL (0-0.2); BASOPHILS % (AUTO) 0.9 % (0.0-3.0); EOSINOPHILS # (AUTO) 0.1 K/ul (0.0-0.7); EOSINOPHILS % (AUTO) 1.5 % (0.0-7.0); HEMATOCRIT 39.8 % (37.0-47.0); HEMOGLOBIN 12.2 g/dl (12.0-16.0); IMMATURE GRANULOCYTE % (AUTO) 0.4 % (0.0-5.0); LYMPHOCYTES # (AUTO) 1.7 K/uL (0.60-3.4); LYMPHOCYTES % (AUTO) 21.4 (10.0-50.0); MEAN CORPUSCULAR HEMOGLOBIN 27.1 pg (27.0-31.0); MEAN CORPUSCULAR HGB CONC 30.7 (31.8-35.4); MEAN CORPUSCULAR VOLUME 88.4 fl (81.0-99.0); MONOCYTES # (AUTO) 0.6 K/uL (0.4-2.0); MONOCYTES % (AUTO) 7.8 (0-10); NEUTROPHILS # (AUTO) 5.3 K/ul (2.0-6.9); PLATELET COUNT 199 10^3/uL (140-440); RDW COEFFICIENT OF VARIATION 14.5 % (11.6-14.8); WHITE BLOOD COUNT 7.79 K/ul (4.6-10.2)
[2024-06-30] MEDS: TYLENOL PO STA (07:07)
--- NOTE | 2024-06-30 07:09 | DI ---
EXAM: CHEST, SINGLE VIEW HISTORY: Dyspnea COMPARISON: 09/16/2023 IMPRESSION: Cardiomediastinal countours appear stable. There is no focal pulmonary consolidation. No pleural effusion or pneumothorax. No acute cardiopulmonary process.
[2024-06-30 07:10] LABS: ALANINE AMINOTRANSFERASE 24.7 U/L (0-35); ALBUMIN 4.13 g/dL (3.5-5.0); ALKALINE PHOSPHATASE 108.5 U/L (53-141); ASPARTATE AMINO TRANSFERASE 33.4 U/L (14-36); BLOOD UREA NITROGEN 17.4 mg/dL (7-17); CALCIUM 9.03 mg/dL (8.4-10.2); CARBON DIOXIDE 26.8 mmol/L (22-30.0); CHLORIDE 104.1 mmol/L (98-107); GLUCOSE 114.8 mg/dL (74-106); MAGNESIUM 2.03 mg/dL (1.6-2.3); POTASSIUM 3.94 mmol/L (3.5-5.1); TOTAL PROTEIN 7.04 g/dL (6.3-8.2)
[2024-06-30] MEDS: ASPIRIN CHEWABLE PO STA (07:25)
[2024-06-30 07:26] LABS: TROPONIN I < 0.012 ng/ml (0.0000-0.120)
[2024-06-30 07:35] LABS: PARTIAL THROMBOPLASTIN TIME 21.1 SEC (23.9-40.0)
--- NOTE | 2024-06-30 08:27 | CT ---
EXAM: CTA HEAD HISTORY: Possible stroke. COMPARISON: Same day brain CT. TECHNIQUE: Unenhanced CT of the head was performed from the skull base to the vertex. CT angiography of the head was performed with 3D/MIP coronal and sagittal reconstructions for evaluation of the cir wilber of Fam. FINDINGS: CT head: There is 9 mm hypodensity in the left frontal lobe. Acute infarct cannot be excluded. No intracranial hemorrhage or extra-axial collection. No mass, mass effect or midline shift. The turk -white matter differentiation is preserved. The ventricles are normal in size. The basal cisterns are patent. The visualized paranasal sinuses and mastoid air cells are clear. There has been prior bilateral cataract surgery. The visualized osseous structures are unremarkable. CTA head: The distal cervical, petrous, cavernous, and supraclinoid segments of the internal carotid arteries a re normal in contour and caliber. The anterior and middle cerebral arteries are normal in contour and caliber without large vessel occl usion. The vertebrobasilar system is patent. The superior cerebellar and posterior cerebral arteries are no rmal in contour and caliber. There is no intracranial aneurysm or arteriovenous malformation. IMPRESSION: 1. 9 mm hypodensity in the left frontal lobe. Acute infarct cannot be excluded. 2. No large vessel occlusion or high grade stenosis within the point lay ira of Fam. All CT scans are performed using dose optimization techniques as appropriate to the performed exam an d include at least one of the following: Automated exposure control, adjustment of the mA and/or kV according t o size, and the use of iterative reconstruction technique.
--- NOTE | 2024-06-30 08:29 | CT ---
EXAM: CTA NECK HISTORY: Possible stroke TECHNIQUE: CT angiography of the neck was performed with coronal and sagittal 3-D MIPS reconstructio ns. Internal carotid artery stenosis are assessed utilizing NASCET criteria. COMPARISON: None. FINDINGS: There is atherosclerotic calcification along the aortic arch. The origin of the right common carotid artery is patent. There is atherosclerotic calcification at t he right carotid bifurcation without significant stenosis. The origin of the left common carotid artery is excluded from the field of view. The visualized left common carotid artery is unremarkable. There is atherosclerotic calcification at the left carotid b ifurcation without significant stenosis. There is mild focal stenosis at the origin of the right vertebral artery. The origin of the left vertebral artery is excluded from the field of view. The visualized left vert ebral artery is normal in contour and caliber without significant stenosis. No aneurysm or vascular malformation is identified. There is multilevel disc desiccation and degenerative change involving posterior disc osteophyte comp lexes, facet joint hypertrophy, and uncovertebral joint hypertrophy resulting in various degrees of c entral canal and neural foraminal stenosis. There is 6 mm right thyroid nodule. IMPRESSION: 1. Small calcified plaques at bilateral carotid bifurcations without hemodynamically significant sten osis. 2. Mild focal stenosis at the origin of the right vertebral artery. All CT scans are performed using dose optimization techniques as appropriate to the performed exam an d include at least one of the following: Automated exposure control, adjustment of the mA and/or kV according t o size, and the use of iterative reconstruction technique.
[2024-06-30] MEDS: SODIUM CHLORIDE 1,000 ML IV ONE (09:40)
[2024-06-30 10:09] LABS: SARS COV-2 RNA RAPID NAAT NEGATIVE (NEGATIVE)
[2024-06-30 10:56] LABS: CHOLESTEROL 132.1 mg/dL (0-200); HDL CHOLESTEROL 62.2 mg/dL (35-80)
--- NOTE | 2024-06-30 11:27 | PCM ---
Date of Service Date Seen by Provider: 06/30/24 Time Seen by Provider: 11:00 Admit Day/Time Admission Date: 06/30/24 Admission Time: 10:00 Reason for Admission Chief Complaint: CVA Hospital Provider Hospital Provider: SONNY CELESTIN[place] [facility] [place] Primary Care Physician: ALEX GOLDMAN MD History of Present Illness History of Present Illness: 79 yo female presented to the ER with stroke-like symptoms. Patient states she woke up around 4:45 feeling diaphoretic, blurry vision, and hot. Normally feels that way when her sugar is high. Attempted to get out of bed and was unable to move her L arm and leg. She was then able to call her sister and her speech on the phone to her was very slurred. Sister reports that when she got to her house 20 minutes later the speech was improving but still slurred. Last known well was approximately 8:30 pm last night 06/29/24. On arrival to the ER, speech was still mildly slurred, significant weakness to L upper and lower extremities as well. Dyshagia present. Vision changes had resolved at that time. ER NIH was 6. CT head showed 9 mm hypodensity to the left frontal lobe. CTA head and neck negative. Admitted to Med/Surg Inpatient. Case Discussed With Case Discussed With: Patient's case was discussed with the ER Physicians, Dr. Rodriguez. [facility] Medical History Abdominal hernia without obstruction or gangrene K46.9 - Unspecified abdominal hernia without obstruction or gangrene (ICD- 10) Hiatal hernia K44.9 - Diaphragmatic hernia without obstruction or gangrene (ICD-10) Depression F32.A - Depression, unspecified (ICD-10) Blind left eye H54.40 - Blindness, one eye, unspecified eye (ICD-10) Glaucoma H40.9 - Unspecified glaucoma (ICD-10) Asthmatic bronchitis J45.909 - Unspecified asthma, uncomplicated (ICD-10) GERD (gastroesophageal reflux disease) K21.9 - Gastro-esophageal reflux disease without esophagitis (ICD-10) Osteopenia M85.80 - Other specified disorders of bone density and structure, unspecified site (ICD-10) Liver hemangioma D18.03 - Hemangioma of intra-abdominal structures (ICD-10) Tremor of left hand R25.1 - Tremor, unspecified (ICD-10) Sciatica, right side M54.31 - Sciatica, right side (ICD-10) Degenerative joint disease (DJD) of lumbar spine M47.816 - Spondylosis without myelopathy or radiculopathy, lumbar region (ICD-10) Degenerative joint disease of spine M47.9 - Spondylosis, unspecified (ICD-10) Diverticula of colon K57.30 - Diverticulosis of large intestine without perforation or abscess without bleeding (ICD-10) Seasonal allergies J30.2 - Other seasonal allergic rhinitis (ICD-10) Surgical History Cataract H26.9 - Unspecified cataract (ICD-10) Status post trigger finger release right Z98.890 - Other specified postprocedural states (ICD-10) History of hernia repair erik Z98.890 - Other specified postprocedural states (ICD-10) Z87.19 - Personal history of other diseases of the digestive system (ICD-10) Family History FATHER Diabetes Social History Smoking and tobacco status: Never smoker Alcohol intake: never Substance use type: does not use Special luz needs: No Agree to transfusion: Yes Adopted: No Caregiver/support person: No Foster care: No Household members: none Housing: house Marital status: W / Lives independently: Yes Number of children: 6 service: No prison: No History of recent travel: No Sexually active: No Do you think of yourself as: straight/heterosexual Current gender identity: female Seatbelt use: always Drives intoxicated or rides with intoxicated 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: No Water heater temperature set < 120 degrees: Yes Working smoke detector in home: Yes Fire extinguisher in home: Yes Carbon monoxide detector in home: Yes Firearms in home: No Allergies Allergies Allergy/AdvReac Type Severity Reaction Status Date / Time lactose AdvReac Nausea Verified 06/30/24 06:21 latex AdvReac Rash Verified 06/30/24 06:21 Penicillins AdvReac Rash Verified 06/30/24 06:21 Sulfa (Sulfonamide AdvReac Rash Verified 06/30/24 06:21 Antibiotics) Current Medications Home Medications latanoprost 0.005 % eye drops 1 drp BOTHEYES BEDTIME 08/30/18 [History Confirmed 06/30/24 Last Taken 09/02/22] pen needle, diabetic 31 gauge x 3/16" (TRUEplus Pen Needle) #100 ea 03/08/23 [Rx Confirmed 06/30/24 Last Taken Unknown] albuterol sulfate 90 mcg/actuation aerosol inhaler (Ventolin HFA) 1 puff inhalation TID PRN SOB #8.5 grams 04/25/23 [Rx Confirmed 06/30/24 Last Taken Unknown] fluticasone propionate 50 mcg/actuation nasal spray,suspension (Flonase Allergy Relief) 1 spray intranasal QDAY #16 grams 05/17/23 [Rx Confirmed 06/30/24 Last Taken Unknown] blood sugar diagnostic (Contour Next Test Strips) #100 ea 06/07/23 [Rx Confirmed 06/30/24 Last Taken Unknown] tramadol 100 mg tablet 100 mg PO TID PRN pain #90 tabs 07/21/23 [Rx Confirmed 06/30/24 Last Taken Unknown] lancets 30 gauge (Sure Comfort Lancets) #100 ea 01/30/24 [Rx Confirmed 06/30/24 Last Taken Unknown] insulin glargine 100 unit/mL (3 mL) subcutaneous pen (Lantus Solostar U-100 Insulin) 25 unit subcut QDAY 02/22/24 [History Confirmed 06/30/24 Last Taken Unknown] atorvastatin 80 mg tablet See Rx Instructions .Route .COMPLEX #30 ea 03/05/24 [Rx Confirmed 06/30/24 Last Taken Unknown] sucralfate 1 gram tablet See Rx Instructions .Route .COMPLEX #120 tabs 03/05/24 [Rx Confirmed 06/30/24 Last Taken Unknown] duloxetine 60 mg capsule,delayed release See Rx Instructions .Route .COMPLEX #30 caps 04/02/24 [Rx Confirmed 06/30/24 Last Taken Unknown] empagliflozin 25 mg tablet (Jardiance) See Rx Instructions .Route .COMPLEX #30 tabs 04/02/24 [Rx Confirmed 06/30/24 Last Taken Unknown] metformin 1,000 mg tablet See Rx Instructions .Route .COMPLEX #30 tabs 05/01/24 [Rx Confirmed 06/30/24 Last Taken Unknown] pantoprazole 40 mg tablet,delayed release See Rx Instructions .Route .COMPLEX #60 tabs 05/01/24 [Rx Confirmed 06/30/24 Last Taken Unknown] potassium chloride 20 mEq tablet,extended release 20 meq PO QDAY #7 tabs 06/06/24 [Rx Confirmed 06/30/24 Last Taken Unknown] gabapentin 100 mg capsule 100 mg PO DAILY 06/30/24 [History Confirmed 06/30/24 Last Taken Unknown] Home Acetaminophen (Acetaminophen 325 Mg Tablet) 650 mg PO Q4H PRN PRN Reason: Mild Pain Last Admin: 06/30/24 14:26 Dose: 650 mg Albuterol Sulfate (Albuterol Sulfate 8 Gm Inhaler) 1 puff IH TID PRN PRN Reason: shortness of breath Aspirin (Aspirin 81 Mg Tab.Chew) 81 mg PO DAILYWM2 [facility] Last Admin: 07/01/24 08:54 Dose: 81 mg Atorvastatin Calcium (Atorvastatin Calcium 20 Mg Tablet) 80 mg PO BEDTIME [facility] Last Admin: 06/30/24 20:30 Dose: 80 mg Clopidogrel Bisulfate (Clopidogrel Bisulfate 75 Mg Tablet) 75 mg PO DAILY [facility] Last Admin: 07/01/24 08:54 Dose: 75 mg Duloxetine HCl (Duloxetine Hcl 30 Mg Capsule.Dr) 60 mg PO DAILY [facility] Last Admin: 07/01/24 08:55 Dose: 60 mg Fluconazole (Fluconazole 100 Mg Tablet) 100 mg PO DAILY [facility] Last Admin: 07/01/24 08:55 Dose: 100 mg Fluticasone Propionate (Fluticasone Propionate 16 Gm Nasal [place]) 1 spray GERHARD DAILY PRN PRN Reason: Allergy Symptoms Gabapentin (Gabapentin 100 Mg Capsule) 100 mg PO DAILY [facility] Last Admin: 07/01/24 08:54 Dose: 100 mg Dextrose/Sodium Chloride (Dextrose 5%-Ns Iv Solution) 1,000 mls @ 50 mls/hr IV .Q20H [facility] Last Admin: 06/30/24 14:17 Dose: Not Given Insulin Human Regular (Insulin Regular, Human 100 Unit/Ml (10ml) Vial) 0 unit SUBCUT PRN PRN; Protocol PRN Reason: Hyperglycemia Last Admin: 06/30/24 20:30 Dose: 10 unit Latanoprost (Latanoprost 2.5 Ml Opth Daisy) 1 drop EACHEYE BEDTIME [facility] Last Admin: 06/30/24 20:30 Dose: 1 drop Nystatin (Nystatin 15 Gm Powder) 1 applic TP TID PRN PRN Reason: Yeast infection Last Admin: 06/30/24 12:12 Dose: 1 applic Pantoprazole Sodium (Pantoprazole Sodium 40 Mg Tablet.Dr) 40 mg PO BID [facility] Last Admin: 07/01/24 08:54 Dose: 40 mg Tramadol HCl (Tramadol Hcl 50 Mg Tablet) 100 mg PO TID PRN PRN Reason: Pain Discontinued Medications Acetaminophen (Acetaminophen 325 Mg Tablet) 650 mg PO ONCE STA Stop: 06/30/24 06:35 Last Admin: 06/30/24 07:07 Dose: Not Given Aspirin (Aspirin 81 Mg Tab.Chew) 324 mg PO ONCE STA Stop: 06/30/24 07:21 Last Admin: 06/30/24 07:25 Dose: 324 mg Dextrose (Dextrose 50 % In Water 50 Ml Disp.Syrin) 25 ml IVP ONCE ONE Stop: 06/30/24 11:50 Last Admin: 06/30/24 11:52 Dose: 25 ml Dextrose (Dextrose 50 % In Water 50 Ml Disp.Syrin) 50 ml IVP ONCE ONE Stop: 06/30/24 13:53 Last Admin: 06/30/24 14:34 Dose: 50 ml Dextrose (Dextrose 50 % In Water 50 Ml Disp.Syrin) 25 ml IVP ONCE ONE Stop: 07/01/24 02:33 Last Admin: 07/01/24 02:35 Dose: 25 ml Fluticasone Propionate (Fluticasone Propionate 16 Gm Nasal [place]) 1 spray GERHARD DAILY [facility] Last Admin: 06/30/24 12:28 Dose: Not Given Sodium Chloride (Sodium Chloride) 1,000 mls @ 30 mls/hr IV .[id number] ONE Stop: 07/01/24 15:47 Last Admin: 06/30/24 09:40 Dose: Not Given Dextrose/Sodium Chloride (Dextrose 5%-Ns Iv Solution) 1,000 mls @ 30 mls/hr IV .[id number] [facility] Last Infusion: 06/30/24 17:35 Dose: Infused Opioid Naive vs. Tolerant Does Patient Take Opioids?: No Is Patient Opioid Naive?: Yes What is Opioid Naive?: *Opioid Naive implies the patient is not already taking opioids or not chronically receiving opioids on a daily basis. *PRN dosing is not "usually" associated with tolerance. *Patients are at higher risk of over-sedation and aspiration. Is Patient Opioid Tolerant?: No What is Opioid Tolerant?: *Opioid Tolerance implies less than the expected response to an opioid. *Acquired tolerance is defined by the patient taking 60mg of oral morphine daily (or equianalgesic dose of another opioid) for 1 week or more. *Often associated with chronic pain. *May take more than usual dose to achieve desired pain control. Review of Systems Constitutional: Reports No symptoms Head: Reports Normocephalic Eyes: Reports No symptoms Ears: Reports No symptoms Nose: Reports No symptoms Mouth: Reports No symptoms Throat: Reports Difficulty Swallowing Cardiovascular: Reports No symptoms Respiratory: Reports No symptoms Gastrointestinal: Reports No symptoms Genitourinary: Reports No Symptoms Musculoskeletal: Reports No symptoms Endocrine: Reports No symptoms Hematology: Reports No symptoms Immunology: Reports No symptoms Neurological: Reports Memory Loss (difficulty remembering things when asked), Numbness (L side tongue, L arm, L leg), Weakness (L side of tongue, L arm, L leg), Speech difficulty and Problems with walking Physical examination Most Recent Vital Signs: Most Recent Vital Signs Temperature 97.6 F 06/30/24 06:21 Temperature Source Infrared 06/30/24 06:21 Pulse Rate 64 06/30/24 06:21 Respiratory Rate 22 H 06/30/24 06:21 Blood Pressure 135/77 06/30/24 06:21 O2 Sat by Pulse Oximetry 98 06/30/24 06:21 Height 5 ft 6 in 06/30/24 06:21 Weight 63.2 kg 06/30/24 06:21 Telemetry Heart Rate 63 08/26/22 06:51 Appearance: Positive No Apparent Distress and Alert and Oriented x3 Skin: Positive Warm and Good Turgor HEENT: Positive Normocephalic and PERRLA Neck: Positive Supple and Midline Trachea Chest/Lungs: Positive Symmetrical With Equal Breath Sounds, Clear to Ausculta tion Bilaterally and Good Air Movement all 4 Lung Cif[place]es Heart: Positive RRR and Pulses Normal GI/: Positive Soft, Nontender, Bowel Sounds Normal and No Distention Musculoskeletal: Positive Instability (weakness to L lower extremity) Extremities: Positive Intact Peripheral Pulses, Stable Joints Without Laxity and Good ROM in All Joints Neurological: Positive Reflexes Intact, Alert, Oriented, Focal Deficit (L tongue numbness, L arm weakness and numbness, L leg significant weakness with minimal movement ability. ) and Other Labs This Visit Labs This Visit: Labs This Visit 06/30/24 06/30/24 06/30/24 05:10 06:50 09:50 WBC 7.79 RBC 4.50 Hgb 12.2 Hct 39.8 MCV 88.4 MCH 27.1 MCHC 30.7 L RDW Coeff of Ljuis 14.5 Plt Count 199 Immature Gran % (Auto) 0.4 Neut % (Auto) 68.0 Lymph % (Auto) 21.4 Andrew % (Auto) 7.8 Eos % (Auto) 1.5 Baso % (Auto) 0.9 Neut # (Auto) 5.3 Lymph # (Auto) 1.7 Andrew # (Auto) 0.6 Eos # (Auto) 0.1 Baso # (Auto) 0.1 Immature Gran # (Auto) 0.0 PT 10.0 INR 0.96 APTT 21.1 L Sodium 139.0 Potassium 3.94 Chloride 104.1 Carbon Dioxide 26.8 Anion Gap 12.04 BUN 17.4 H Creatinine 0.70 Estimated GFR (MDRD) 81.00 BUN/Creatinine Ratio 24.85 Glucose 114.8 H Calcium 9.03 Magnesium 2.03 Total Bilirubin 1.90 H AST 33.4 ALT 24.7 Alkaline Phosphatase 108.5 Troponin I < 0.012 Total Protein 7.04 Albumin 4.13 Globulin 2.91 Albumin/Globulin Ratio 1.41 Triglycerides 114.0 Cholesterol 132.1 LDL Cholesterol, Calc 47 VLDL Cholesterol 23 HDL Cholesterol 62.2 Cholesterol/HDL Ratio 2.1 L SARS CoV-2 RNA Rapid ALISON Negative Imaging Imaging: EXAM: CT OF THE HEAD WITHOUT CONTRAST FINDINGS: The visualized paranasal sinuses and mastoid air cells are clear in general. No acute calvarial abnormalities. Intracranially the ventricular and cisternal spaces are normal in size, shape and configuration for a patient of this age. No dominant mass or midline shift. No hydrocephalous. No acute intracranial hemorrhage or abnormal extraaxial fluid collections. Impression: No acute intracranial process. EXAM: CTA HEAD FINDINGS: CT head: There is 9 mm hypodensity in the left frontal lobe. Acute infarct cannot be excluded. No intracranial hemorrhage or extra-axial collection. No mass, mass effect or midline shift. The turk-white matter differentiation is preserved. The ventricles are normal in size. The basal cisterns are patent. The visualized paranasal sinuses and mastoid air cells are clear. There has been prior bilateral cataract surgery. The visualized osseous structures are unremarkable. CTA head: The distal cervical, petrous, cavernous, and supraclinoid segments of the internal carotid arteries are normal in contour and caliber. The anterior and middle cerebral arteries are normal in contour and caliber without large vessel occlusion. The vertebrobasilar system is patent. The superior cerebellar and posterior cerebral arteries are normal in contour and caliber. There is no intracranial aneurysm or arteriovenous malformation. IMPRESSION: 1. 9 mm hypodensity in the left frontal lobe. Acute infarct cannot be excluded. 2. No large vessel occlusion or high grade stenosis within the [place]am. EXAM: CTA NECK FINDINGS: There is atherosclerotic calcification along the aortic arch. The origin of the right common carotid artery is patent. There is atherosclerotic calcification at the right carotid bifurcation without significant stenosis. The origin of the left common carotid artery is excluded from the field of view. The visualized left common carotid artery is unremarkable. There is atherosclerotic calcification at the left carotid bifurcation without significant stenosis. There is mild focal stenosis at the origin of the right vertebral artery. The origin of the left vertebral artery is excluded from the field of view. The visualized left vertebral artery is normal in contour and caliber without significant stenosis. No aneurysm or vascular malformation is identified. There is multilevel disc desiccation and degenerative change involving posterior disc osteophyte complexes, facet joint hypertrophy, and uncovertebral joint hypertrophy resulting in various degrees of central canal and neural foraminal stenosis. There is 6 mm right thyroid nodule. IMPRESSION: 1. Small calcified plaques at bilateral carotid bifurcations without hemodynamically significant stenosis. 2. Mild focal stenosis at the origin of the right vertebral artery. Review Statement Review Statement: I have independently reviewed and interpreted the labs/EKGs/imaging that were ordered by the ER provider. I have reviewed all outside records that are available currently in our EMR including imaging/notes/labs from previous visits. Plan Plan: 1. Acute Stroke - CT showed 9 mm hypodensity in the left frontal lobe; continues to have mildly slurred speech, significant L sided weakness, and dysphagia; Failed RN swallow study, NPO until speech eval can be completed, DAPT ordered, atorvastatin 80 mg daily, lipid panel completed and within normal limits, echo ordered, telemetry, allow permissive HTN SBP up to 220 and DBP up to 120, neurochecks Q4H, PT/OT 2. DM2 - Chronic, NPO at this time, D5NS@30mL/hr, accuchecks Q4H and prn, sliding scale prn, holding oral agents 3. Hyperlipidemia - chronic, continue atorvastatin when able to swallow 4. GERD - Chronic, continue home medications when able to swallow DVT Prophylaxis: DAPT - Plavix and ASA Time Spent: Greater than 80 minutes spent with patient, 50% of the time spent with this patient was devoted to counseling and coordination of care. [facility] minutes spent discussing advance care planning. Disposition: Admit to: Med/surg Inpatient Full Code Discussed Plan of Care with Dr. Wai Goldman. Medications Medication Orders: Medications Ordered Category Date Time Status Acetaminophen [Tylenol] Meds 06/30/24 10:41 Active 650 mg PO Q4H PRN Aspirin [Aspirin Chewable] Meds 07/01/24 07:30 Active 81 mg PO DAILYWM2 Atorvastatin Calcium [Lipitor] Meds 06/30/24 21:00 Active 80 mg PO BEDTIME Clopidogrel Bisulfate [Plavix] Meds 06/30/24 11:30 Active 75 mg PO DAILY Sodium Chloride 0.9% [Sodium Chloride] 1,000 ml Meds 06/30/24 06:28 Active IV 30 mls/hr
[2024-06-30 11:37] VITALS: BMI 21.8
[2024-06-30] MEDS: DEXTROSE 50%-WATER ABBOJECT IVP ONE ×2 (11:52→14:34)
[2024-06-30] MEDS ORDERED: VENTOLIN HFA IH PRN (12:07)
[2024-06-30] MEDS: DEXTROSE 5%-NS IV SOLUTION 1,000 ML IV SCH ×2 (12:11→14:17)
[2024-06-30] MEDS: NYSTOP POWDER TP PRN (12:12)
[2024-06-30] MEDS: DIFLUCAN PO SCH (12:12)
[2024-06-30] MEDS: PLAVIX PO SCH (12:12)
[2024-06-30] MEDS: FLONASE NAS SCH (12:28)
[2024-06-30] MEDS ORDERED: FLONASE NAS PRN (12:29)
[2024-06-30] MEDS ORDERED: ULTRAM PO PRN (12:51)
[2024-06-30] MEDS: PROTONIX PO SCH (13:19)
[2024-06-30] MEDS: CYMBALTA PO SCH (13:20)
[2024-06-30] MEDS: TYLENOL PO PRN (14:26)
[2024-06-30] MEDS: LIPITOR PO SCH (20:30)
[2024-06-30] MEDS: HUMULIN R (10ML) SUBCUT PRN (20:30)
[2024-06-30] MEDS: XALATAN EACHEYE SCH (20:30)
[2024-07-01] MEDS: DEXTROSE 50%-WATER ABBOJECT IVP ONE (02:35)
[2024-07-01] MEDS: DEXTROSE 50%-WATER ABBOJECT ONE (04:55)
[2024-07-01 04:57] LABS: BASOPHILS % (AUTO) 0.7 % (0.0-3.0); EOSINOPHILS # (AUTO) 0.1 K/ul (0.0-0.7); EOSINOPHILS % (AUTO) 1.8 % (0.0-7.0); HEMATOCRIT 38.3 % (37.0-47.0); HEMOGLOBIN 11.9 g/dl (12.0-16.0); IMMATURE GRANULOCYTE % (AUTO) 0.4 % (0.0-5.0); LYMPHOCYTES # (AUTO) 1.5 K/uL (0.60-3.4); LYMPHOCYTES % (AUTO) 25.7 (10.0-50.0); MEAN CORPUSCULAR HEMOGLOBIN 27.2 pg (27.0-31.0); MEAN CORPUSCULAR HGB CONC 31.1 (31.8-35.4); MEAN CORPUSCULAR VOLUME 87.6 fl (81.0-99.0); MONOCYTES # (AUTO) 0.6 K/uL (0.4-2.0); MONOCYTES % (AUTO) 10.1 (0-10); NEUTROPHILS # (AUTO) 3.5 K/ul (2.0-6.9); NEUTROPHILS % (AUTO) 61.3 % (42.2-75.2); PLATELET COUNT 192 10^3/uL (140-440); RDW COEFFICIENT OF VARIATION 14.6 % (11.6-14.8); RED BLOOD COUNT 4.37 10^6/ul (4.20-5.40); WHITE BLOOD COUNT 5.65 K/ul (4.6-10.2)
[2024-07-01 05:09] LABS: ALANINE AMINOTRANSFERASE 23.8 U/L (0-35); ALBUMIN 3.72 g/dL (3.5-5.0); ASPARTATE AMINO TRANSFERASE 30.3 U/L (14-36); BILIRUBIN,TOTAL 2.04 mg/dL (0.2-1.3); CALCIUM 8.92 mg/dL (8.4-10.2); CARBON DIOXIDE 29.8 mmol/L (22-30.0); CHLORIDE 106.8 mmol/L (98-107); CREATININE 0.78 mg/dL (0.60-1.30); GLUCOSE 117.5 mg/dL (74-106); POTASSIUM 3.5 mmol/L (3.5-5.1); SODIUM 141.3 mmol/L (134.5-145); TOTAL PROTEIN 6.54 g/dL (6.3-8.2)
[2024-07-01] MEDS: ASPIRIN CHEWABLE PO SCH (08:54)
[2024-07-01] MEDS: NEURONTIN PO SCH (08:54)
--- NOTE | 2024-07-01 09:10 | PCM.PROG ---
Date/Time Seen Date Seen by Provider: 07/01/24 Time Seen by Provider: 08:30 Provider Provider: SONNY [facility]LESTIN, [facility] Chief Complaint Chief Complaint: CVA Subjective Subjective: Speech unable to see patient yesterday. Patient swallowing liquids okay. Using precaution. Glucose low at times due to lack of intake. Requiring IV fluids. Movement to L arm/hand present but difficult. Minimal movement to L foot/leg but slightly improved today. Speech clear. Has difficulty with choosing words or what she wants to say at times. Objective Appearance: Positive No Apparent Distress and Alert and Oriented x3 Chest/Lungs: Positive Symmetrical With Equal Breath Sounds, Clear to Auscultation Bilaterally and Good Air Movement all 4 Lung Cifuentes Heart: Positive RRR and Pulses Normal GI/: Positive Soft, Nontender, Bowel Sounds Normal and No Distention Musculoskeletal: Positive Not Examined Neurological: Positive Alert, Oriented and Other (Marked weakness to L upper and lower extremities with decreased sensation) Vital Signs Vital Signs: Vital Signs: Last 24 Hours 06/30/24 11:05 06/30/24 11:05 06/30/24 13:00 Temperature 98.1 F Temperature Source Oral Pulse Rate 71 Respiratory Rate 16 16 Blood Pressure Blood Pressure Mean Blood Pressure Left Arm 145/82 Blood Pressure Location Blood Pressure Position Supine O2 Sat by Pulse Oximetry 98 Oxygen Delivery Method Room Air Room Air Height 5 ft 6 in Weight 61.3 kg Telemetry Type Remote Telemetry Telemetry Monitoring Continues Telemetry Heart Rate 71 EKG FL Interval 0.19 EKG QRS Interval 0.09 Telemetry Strip Reading Sinus arrhythmia 06/30/24 14:00 06/30/24 17:57 06/30/24 19:00 Temperature 97.8 F 97.7 F Temperature Source Temporal Artery Scan Temporal Artery Scan Pulse Rate 69 67 Respiratory Rate 16 18 Blood Pressure 124/77 149/88 H Blood Pressure Mean 92 108 Blood Pressure Left Arm Blood Pressure Location Left Arm Left Arm Blood Pressure Position Sitting Sitting O2 Sat by Pulse Oximetry 96 97 Oxygen Delivery Method Room Air Room Air Height Weight Telemetry Type Remote Telemetry Telemetry Monitoring Continues Telemetry Heart Rate 112 H EKG FL Interval 0.16 EKG QRS Interval 0.07 Telemetry Strip Reading SInus Tachycardia 06/30/24 20:00 06/30/24 20:06 07/01/24 00:22 Temperature 97.1 F L Temperature Source Temporal Artery Scan Pulse Rate 67 Respiratory Rate 16 18 Blood Pressure 122/63 Blood Pressure Mean 82 Blood Pressure Left Arm Blood Pressure Location Right Arm Blood Pressure Position Sitting O2 Sat by Pulse Oximetry 98 Oxygen Delivery Method Room Air Room Air Height Weight Telemetry Type Remote Telemetry Telemetry Monitoring Continues Telemetry Heart Rate 74 EKG FL Interval 0.16 EKG QRS Interval 0.07 Telemetry Strip Reading SINUS RHYTHM 07/01/24 02:00 07/01/24 05:14 07/01/24 07:00 Temperature 98.5 F 98.7 F Temperature Source Oral Oral Pulse Rate 66 70 Respiratory Rate 17 17 Blood Pressure 124/67 122/68 Blood Pressure Mean 86 86 Blood Pressure Left Arm Blood Pressure Location Right Arm Left Arm Blood Pressure Position Sitting Supine O2 Sat by Pulse Oximetry 98 98 Oxygen Delivery Method Room Air Room Air Height Weight Telemetry Type Remote Telemetry Telemetry Monitoring Continues Telemetry Heart Rate 68 EKG FL Interval 0.17 EKG QRS Interval 0.10 Telemetry Strip Reading NSR Lab Results Lab Results: Lab Results: Last 24 Hours 07/01/24 06/30/24 06/30/24 04:43 09:50 05:10 WBC 5.65 RBC 4.37 Hgb 11.9 L Hct 38.3 MCV 87.6 MCH 27.2 MCHC 31.1 L RDW Coeff of Jluis 14.6 Plt Count 192 Immature Gran % (Auto) 0.4 Neut % (Auto) 61.3 Lymph % (Auto) 25.7 Lipscomb % (Auto) 10.1 H Eos % (Auto) 1.8 Baso % (Auto) 0.7 Neut # (Auto) 3.5 Lymph # (Auto) 1.5 Lipscomb # (Auto) 0.6 Eos # (Auto) 0.1 Baso # (Auto) 0.0 Immature Gran # (Auto) 0.0 Sodium 141.3 Potassium 3.50 Chloride 106.8 Carbon Dioxide 29.8 Anion Gap 8.20 BUN 14.0 Creatinine 0.78 Estimated GFR (MDRD) 72.00 BUN/Creatinine Ratio 17.94 Glucose 117.5 H Hemoglobin A1c 12.12 H Calcium 8.92 Total Bilirubin 2.04 H AST 30.3 ALT 23.8 Alkaline Phosphatase 106.0 Total Protein 6.54 Albumin 3.72 Globulin 2.82 Albumin/Globulin Ratio 1.31 Triglycerides 114.0 Cholesterol 132.1 LDL Cholesterol, Calc 47 VLDL Cholesterol 23 HDL Cholesterol 62.2 Cholesterol/HDL Ratio 2.1 L SARS CoV-2 RNA Rapid ALISON Negative Additional Comments Additional Comments: I have independently reviewed and interpreted the labs/EKGs/imaging ordered during this hospital stay. I have reviewed outside records that are available in our EMR that pertain to medical stay including imaging/notes/labs from previous visits. Active Medications Active Medications: Medications Generic Name Dose Route Start Last Admin Trade Name Freq PRN Reason Stop Dose Admin Acetaminophen 650 mg 06/30/24 10:41 06/30/24 14:26 Acetaminophen 325 Mg Tablet PO 650 mg Q4H PRN Administration Mild Pain Albuterol Sulfate 1 puff 06/30/24 12:07 Albuterol Sulfate 8 Gm Inhaler IH TID PRN shortness of breath Aspirin 81 mg 07/01/24 07:30 07/01/24 08:54 Aspirin 81 Mg Tab.Chew PO 81 mg DAILYWM2 WALTER Administration Atorvastatin Calcium 80 mg 06/30/24 21:00 06/30/24 20:30 Atorvastatin Calcium 20 Mg Tablet PO 80 mg BEDTIME WALTER Administration Clopidogrel Bisulfate 75 mg 06/30/24 11:30 07/01/24 08:54 Clopidogrel Bisulfate 75 Mg Tablet PO 75 mg DAILY WALTER Administration Duloxetine HCl 60 mg 06/30/24 12:30 07/01/24 08:55 Duloxetine Hcl 30 Mg Capsule.Dr PO 60 mg DAILY WALTER Administration Fluconazole 100 mg 06/30/24 11:45 07/01/24 08:55 Fluconazole 100 Mg Tablet PO 100 mg DAILY WALTER Administration Fluticasone Propionate 1 spray 06/30/24 12:29 Fluticasone Propionate 16 Gm Nasal [place] GERHARD DAILY PRN Allergy Symptoms Gabapentin 100 mg 07/01/24 09:00 07/01/24 08:54 Gabapentin 100 Mg Capsule PO 100 mg DAILY WALTER Administration Dextrose/Sodium Chloride 1,000 mls @ 50 mls/hr 06/30/24 13:52 06/30/24 14:17 Dextrose 5%-Ns Iv Solution IV Not Given .Q20H WALTER Insulin Human Regular 0 unit 06/30/24 11:26 06/30/24 20:30 Insulin Regular, Human 100 Unit/Ml (10ml) Vial SUBCUT 10 unit PRN PRN Administration Hyperglycemia Protocol Latanoprost 1 drop 06/30/24 21:00 06/30/24 20:30 Latanoprost 2.5 Ml Opth Daisy EACHEYE 1 drop BEDTIME WALTER Administration Nystatin 1 applic 06/30/24 11:41 06/30/24 12:12 Nystatin 15 Gm Powder TP 1 applic TID PRN Administration Yeast infection Pantoprazole Sodium 40 mg 06/30/24 12:30 07/01/24 08:54 Pantoprazole Sodium 40 Mg Tablet. PO 40 mg BID WALTER Administration Tramadol HCl 100 mg 06/30/24 12:51 Tramadol Hcl 50 Mg Tablet PO TID PRN Pain Plan Plan: 1. Acute Stroke - CT showed 9 mm hypodensity in the left frontal lobe; continues to have mildly slurred speech, significant L sided weakness, and dysphagia; Failed RN swallow study - speech unable to eval until today - recommended creamed/thicker liquids and discussed swallowing methods, DAPT ordered, atorvastatin 80 mg daily, lipid panel completed and within normal limits, echo ordered, telemetry, neurochecks Q4H, PT/OT 2. DM2 - Chronic, Liquid diet at this time, D5NS@30mL/hr, accuchecks Q4H and prn, sliding scale prn, holding oral agents, A1C 12 3. Hyperlipidemia - chronic, continue atorvastatin when able to swallow 4. GERD - Chronic, continue home medications when able to swallow DVT Prophylaxis: DAPT - Plavix and ASA Review Statement Review Statement: I have personally discussed and reviewed the patient's visit/currently labs/imaging/decision making with Dr. Goldman, my supervising attending. Greater that 50 minutes spent with patient, 50% of the time spent with this patient was devoted to counseling and coordination of care.
[2024-07-01] MEDS: PROTONIX PO SCH (16:10)
--- NOTE | 2024-07-01 17:14 | ECHO2D ---
Date of Exam: 07/01/2024 Ordering Physician: HOSPITALISTPATRICIA/ PCP Nathan HOGUE Room #: 115 Reason for Echo: STROKE, DM2, DYSLIPIDEMIA, HTN, MVP M-Mode Normal Adult Results LV Dimensions Normal Adult Results AoV Opening excursions >1.6 >1.6 LVEDD-base- 3.5-5.8 4.1 Ao root dimensions 2.0-3.7 3.3 LVESD-base- 3.1-4.6 L. Atrium dimensions 1.9-3.8 3.1 Post. Wall thickness 0.8-1.1 1.2 IV septum (thickness) 0.7-1.2 1.2 Post. Wall excursion 0.72-1.3 NORMAL Septal motion NORMAL Systolic motion R. Ventricular cavity 1.5-2.0 NORMAL LVEF 60% >60% Paradoxical septal wall motion NORMAL 2-D : MITRAL VALVE PROLAPSE NOTED ON LEFT PARASTERNAL LONG AXIS AND APICAL FOUR CHAMBER VIEW. TRICUSPID VALVE, PULMONARY VALVE AND AORTIC VALVE = NORMAL, NORMAL LEFT VENTRICLE SIZE AND CONTRACTILITY--NO EFFUSION, NO THROMBUS M-MODE: MV: MITRAL VALVE PROLAPSE LATE SYSTOLIC AV: NORMAL TV: NORMAL PV: NORMAL CHAMBER SIZE: NORMAL WALL MOTION: NORMAL PERICARDIUM: NORMAL INTERPRETATION: 1. BORDERLINE LEFT VENTRICLE HYPERTROPHY 2. MITRAL VALVE PROLAPSE WITH MILD MITRAL REGURGITATION 3. TRICUSPID VALVE, PULMONARY VALVE AND AORTIC VALVE= NORMAL 4. NORMAL LEFT VENTRICLE SIZE AND LEFT VENTRICLE CONTRACTILITY MTDD
[2024-07-02 05:25] LABS: BASOPHILS # (AUTO) 0.1 K/uL (0-0.2); EOSINOPHILS # (AUTO) 0.1 K/ul (0.0-0.7); EOSINOPHILS % (AUTO) 2.1 % (0.0-7.0); HEMATOCRIT 37.7 % (37.0-47.0); HEMOGLOBIN 11.6 g/dl (12.0-16.0); IMMATURE GRANULOCYTE % (AUTO) 0.2 % (0.0-5.0); LYMPHOCYTES # (AUTO) 1.8 K/uL (0.60-3.4); LYMPHOCYTES % (AUTO) 34.2 (10.0-50.0); MEAN CORPUSCULAR HEMOGLOBIN 27.4 pg (27.0-31.0); MEAN CORPUSCULAR HGB CONC 30.8 (31.8-35.4); MEAN CORPUSCULAR VOLUME 89.1 fl (81.0-99.0); MONOCYTES # (AUTO) 0.5 K/uL (0.4-2.0); NEUTROPHILS # (AUTO) 2.7 K/ul (2.0-6.9); NEUTROPHILS % (AUTO) 53.5 % (42.2-75.2); PLATELET COUNT 188 10^3/uL (140-440); RDW COEFFICIENT OF VARIATION 14.6 % (11.6-14.8); RED BLOOD COUNT 4.23 10^6/ul (4.20-5.40); WHITE BLOOD COUNT 5.12 K/ul (4.6-10.2)
[2024-07-02 05:43] LABS: ALANINE AMINOTRANSFERASE 19.6 U/L (0-35); ALBUMIN 3.65 g/dL (3.5-5.0); ALKALINE PHOSPHATASE 108.2 U/L (53-141); BILIRUBIN,TOTAL 1.81 mg/dL (0.2-1.3); BLOOD UREA NITROGEN 14.3 mg/dL (7-17); CALCIUM 8.44 mg/dL (8.4-10.2); CARBON DIOXIDE 27.2 mmol/L (22-30.0); CHLORIDE 105.5 mmol/L (98-107); CREATININE 0.73 mg/dL (0.60-1.30); GLUCOSE 132.1 mg/dL (74-106); POTASSIUM 3.93 mmol/L (3.5-5.1); SODIUM 138.9 mmol/L (134.5-145); TOTAL PROTEIN 6.23 g/dL (6.3-8.2)
--- NOTE | 2024-07-02 11:21 | PCM.PROG ---
Date/Time Seen Date Seen by Provider: 07/02/24 Time Seen by Provider: 08:45 Provider [facility] Chief Complaint Chief Complaint: CVA Subjective Subjective: Patient feels her mobility of left upper and lower ext is slowly improving. 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 She was able to ambulate today with assistan ce. Speech is clear. She feels her swallowing is improved. Objective Appearance: Positive No Apparent Distress and Alert and Oriented x3 Chest/Lungs: Positive Symmetrical With Equal Breath Sounds, Clear to Auscultation Bilaterally and Good Air Movement all 4 Lung Cifuentes Heart: Positive RRR and Pulses Normal GI/: Positive Soft, Nontender, Bowel Sounds Normal and No Distention Neurological: Positive Alert, Oriented and Other (Marked weakness to L upper and lower extremities compared to R with decreased sensation. Unable to open or close left hand. Able to lift arm and leg off of cot against gravity but minimally. Facial expressions symmetric. Speech clear. ) Vital Signs Vital Signs: Vital Signs: Last 24 Hours 07/01/24 13:00 07/01/24 13:54 07/01/24 17:18 Temperature 98.1 F 96.9 F L Temperature Source Temporal Artery Scan Temporal Artery Scan Pulse Rate 68 72 Respiratory Rate 16 16 Blood Pressure 128/44 L 138/75 Blood Pressure Mean 72 96 Blood Pressure Location Right Arm Right Arm Blood Pressure Position Supine Supine O2 Sat by Pulse Oximetry 98 98 Oxygen Delivery Method Room Air Room Air Height Weight Telemetry Type Remote Telemetry Telemetry Monitoring Continues Telemetry Heart Rate 65 EKG NC Interval 0.18 EKG QRS Interval 0.08 Telemetry Strip Reading NSR 07/01/24 19:00 07/01/24 20:00 07/01/24 21:07 Temperature 97.1 F L Temperature Source Temporal Artery Scan Pulse Rate 68 Respiratory Rate 18 17 Blood Pressure 130/82 Blood Pressure Mean 98 Blood Pressure Location Right Arm Blood Pressure Position Sitting O2 Sat by Pulse Oximetry 99 Oxygen Delivery Method Room Air Room Air Height Weight Telemetry Type Remote Telemetry Telemetry Monitoring Continues Telemetry Heart Rate 80 EKG NC Interval 0.21 H EKG QRS Interval 0.10 Telemetry Strip Reading SR 07/01/24 21:57 07/02/24 00:56 07/02/24 04:56 Temperature 98.5 F Temperature Source Temporal Artery Scan Pulse Rate 72 Respiratory Rate 16 Blood Pressure 145/75 H Blood Pressure Mean 98 Blood Pressure Location Right Arm Blood Pressure Position O2 Sat by Pulse Oximetry 99 Oxygen Delivery Method Room Air Height 5 ft 6 in Weight 61.3 kg Telemetry Type Remote Telemetry Telemetry Monitoring Continues Telemetry Heart Rate 68 EKG NC Interval 0.20 EKG QRS Interval 0.08 Telemetry Strip Reading sinus rhythm 07/02/24 07:00 07/02/24 08:00 07/02/24 10:00 Temperature 98.1 F Temperature Source Temporal Artery Scan Pulse Rate 74 Respiratory Rate 16 Blood Pressure 130/81 Blood Pressure Mean 97 Blood Pressure Location Left Arm Blood Pressure Position Sitting O2 Sat by Pulse Oximetry 97 Oxygen Delivery Method Room Air Room Air Height Weight Telemetry Type Remote Telemetry Telemetry Monitoring Continues Telemetry Heart Rate 75 EKG NC Interval 0.13 EKG QRS Interval 0.04 L Telemetry Strip Reading SR Lab Results Lab Results: Lab Results: Last 24 Hours 07/02/24 07/02/24 05:10 05:05 WBC 5.12 RBC 4.23 Hgb 11.6 L Hct 37.7 MCV 89.1 MCH 27.4 MCHC 30.8 L RDW Coeff of Jluis 14.6 Plt Count 188 Immature Gran % (Auto) 0.2 Neut % (Auto) 53.5 Lymph % (Auto) 34.2 Cecil % (Auto) 9.0 Eos % (Auto) 2.1 Baso % (Auto) 1.0 Neut # (Auto) 2.7 Lymph # (Auto) 1.8 Cecil # (Auto) 0.5 Eos # (Auto) 0.1 Baso # (Auto) 0.1 Immature Gran # (Auto) 0.0 Sodium 138.9 Potassium 3.93 Chloride 105.5 Carbon Dioxide 27.2 Anion Gap 10.13 BUN 14.3 Creatinine 0.73 Estimated GFR (MDRD) 77.00 BUN/Creatinine Ratio 19.58 Glucose 132.1 H Calcium 8.44 Total Bilirubin 1.81 H AST 26.0 ALT 19.6 Alkaline Phosphatase 108.2 Total Protein 6.23 L Albumin 3.65 Globulin 2.58 Albumin/Globulin Ratio 1.41 Additional Comments Additional Comments: I have independently reviewed and interpreted the labs/EKGs/imaging ordered during this hospital stay. I have reviewed outside records that are available in our EMR that pertain to medical stay including imaging/notes/labs from previous visits. Active Medications Active Medications: Medications Generic Name Dose Route Start Last Admin Trade Name Freq PRN Reason Stop Dose Admin Acetaminophen 650 mg 06/30/24 10:41 06/30/24 14:26 Acetaminophen 325 Mg Tablet PO 650 mg Q4H PRN Administration Mild Pain Albuterol Sulfate 1 puff 06/30/24 12:07 Albuterol Sulfate 8 Gm Inhaler IH TID PRN shortness of breath Aspirin 81 mg 07/01/24 07:30 07/02/24 09:01 Aspirin 81 Mg Tab.Chew PO 81 mg DAILYWM2 WALTER Administration Atorvastatin Calcium 80 mg 06/30/24 21:00 07/01/24 20:54 Atorvastatin Calcium 20 Mg Tablet PO 80 mg BEDTIME WALTER Administration Clopidogrel Bisulfate 75 mg 06/30/24 11:30 07/02/24 09:01 Clopidogrel Bisulfate 75 Mg Tablet PO 75 mg DAILY WALTER Administration Duloxetine HCl 60 mg 06/30/24 12:30 07/02/24 09:02 Duloxetine Hcl 30 Mg Capsule. PO 60 mg DAILY WALTER Administration Fluconazole 100 mg 06/30/24 11:45 07/02/24 09:01 Fluconazole 100 Mg Tablet PO 100 mg DAILY WALTER Administration Fluticasone Propionate 1 spray 06/30/24 12:29 Fluticasone Propionate 16 Gm Nasal [place] GERHARD DAILY PRN Allergy Symptoms Gabapentin 100 mg 07/01/24 09:00 07/02/24 09:02 Gabapentin 100 Mg Capsule PO 100 mg DAILY WALTER Administration Insulin Human Regular 0 unit 06/30/24 11:26 07/01/24 20:54 Insulin Regular, Human 100 Unit/Ml (10ml) Vial SUBCUT 10 unit PRN PRN Administration Hyperglycemia Protocol Latanoprost 1 drop 06/30/24 21:00 07/01/24 20:54 Latanoprost 2.5 Ml Opth Daisy EACHEYE 1 drop BEDTIME WALTER Administration Nystatin 1 applic 06/30/24 11:41 06/30/24 12:12 Nystatin 15 Gm Powder TP 1 applic TID PRN Administration Yeast infection Pantoprazole Sodium 40 mg 07/01/24 17:00 07/02/24 05:05 Pantoprazole Sodium 40 Mg Tablet. PO 40 mg BIDAC2 WALTER Administration Tramadol HCl 100 mg 06/30/24 12:51 Tramadol Hcl 50 Mg Tablet PO TID PRN Pain Plan Plan: 1. Acute Stroke - CT showed 9 mm hypodensity in the left frontal lobe; continues to have significant L sided weakness, and dysphagia; Speech recommended creamed/thicker liquids and discussed swallowing methods, DAPT ordered, atorvastatin 80 mg daily, lipid panel completed and within normal limits, echo, telemetry,PT/OT. Will get MRI tomorrow to evaluate for right sided lesion as symptoms are left sided. 2. DM2 - Chronic, diet per ST, sliding scale prn, holding oral agents, A1C 12 3. Hyperlipidemia - chronic, continue atorvastatin when able to swallow 4. GERD - Chronic, continue home medications when able to swallow DVT Prophylaxis: DAPT - Plavix and ASA, will stop plavix after 21 days Dispo: Will evaluate for swingbed tomorrow Review Statement Review Statement: I have personally discussed and reviewed the patient's visit/currently labs/imaging/decision making with Dr. Goldman, my supervising attending. Greater that 50 minutes spent with patient, 50% of the time spent with this patient was devoted to counseling and coordination of care.
[2024-07-03 05:21] LABS: BASOPHILS # (AUTO) 0.1 K/uL (0-0.2); EOSINOPHILS # (AUTO) 0.2 K/ul (0.0-0.7); HEMATOCRIT 36.4 % (37.0-47.0); HEMOGLOBIN 11.2 g/dl (12.0-16.0); IMMATURE GRANULOCYTE % (AUTO) 0.2 % (0.0-5.0); LYMPHOCYTES # (AUTO) 2.1 K/uL (0.60-3.4); LYMPHOCYTES % (AUTO) 41.7 (10.0-50.0); MEAN CORPUSCULAR HEMOGLOBIN 27.3 pg (27.0-31.0); MEAN CORPUSCULAR HGB CONC 30.8 (31.8-35.4); MEAN CORPUSCULAR VOLUME 88.6 fl (81.0-99.0); MONOCYTES # (AUTO) 0.5 K/uL (0.4-2.0); MONOCYTES % (AUTO) 9.5 (0-10); NEUTROPHILS # (AUTO) 2.2 K/ul (2.0-6.9); NEUTROPHILS % (AUTO) 43.6 % (42.2-75.2); PLATELET COUNT 193 10^3/uL (140-440); RDW COEFFICIENT OF VARIATION 14.4 % (11.6-14.8); RED BLOOD COUNT 4.11 10^6/ul (4.20-5.40); WHITE BLOOD COUNT 4.94 K/ul (4.6-10.2)
[2024-07-03 05:36] LABS: ALANINE AMINOTRANSFERASE 17.8 U/L (0-35); ALBUMIN 3.56 g/dL (3.5-5.0); ASPARTATE AMINO TRANSFERASE 27.8 U/L (14-36); BILIRUBIN,TOTAL 1.33 mg/dL (0.2-1.3); BLOOD UREA NITROGEN 11.7 mg/dL (7-17); CALCIUM 8.33 mg/dL (8.4-10.2); CARBON DIOXIDE 29.1 mmol/L (22-30.0); CREATININE 0.73 mg/dL (0.60-1.30); POTASSIUM 4.27 mmol/L (3.5-5.1); SODIUM 138.1 mmol/L (134.5-145); TOTAL PROTEIN 6.18 g/dL (6.3-8.2)
--- NOTE | 2024-07-03 09:29 | MRI ---
EXAM: MRI OF THE BRAIN WITHOUT CONTRAST HISTORY: cerebrovascular accident, slurred speech TECHNIQUE: Multiplanar imaging of the brain was performed using T1, T2, inversion recovery, diffusio n, T2 gradient sequences. Comparison 09/16/2023. FINDINGS: As no restricted diffusion. The lateral ventricles and cortical sulci are normal. The ba marcos cisterns are patent. Normal flow voids are identified within the basal cisterns. The seventh an d eighth cranial nerve complexes are normal. Normal flow signal is identified within the dural venou s sinuses. Scattered T2 high signal foci are seen within the supratentorial white matter. No acute hemorrhages are seen. There is no mass effect. There are no extraaxial collections. The craniocervical junction and midline structures are normal. The soft tissues of the skull base an d nasopharynx appear normal. The paranasal sinuses and mastoid air cells are clear. IMPRESSION: There is no acute cerebral infarction. Mild to moderate chronic small vessel ischemic changes seen within the supratentorial white matter. No acute intracranial abnormalities are seen.
--- NOTE | 2024-07-03 12:40 | RS.PTINEVL ---
Subjective Patient information Date of Evaluation: 07/03/24 Date of Arrival on Unit: 06/30/24 Admitted From:: Home Diagnosis: acute CVA Usual Living Arrangement: Alone Living Arrangement Comments: grandson lives nextdoor Home Environment: House, Stairs (few) and Rail Medical History: Hypertension, Diabetes and Arthritis Medical History Comments:: hiatal hernia, depression, liver hemagioma, GERD, osteopenia, DJD, glaucoma Echo on 07/03/24: borderline LVH, mitral valve prolapse with mild regurgitation LATEX ALLERGY?: Yes Surgical History Comments:: trigger finger release, hernia repair Medications: see chart Subjective Information/ Patient Comments:: pt states she was talking to her sister and her sister noticed she was slurring her words and took her to hospital. pt states she feels she is slowly getting better. pt states she is hoping to stay in the swing bed to get stronger. 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 Speech clear, states she has trouble saying a few words like "[facility]". 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) Right Lower Extremity: Normal Left Lower Extremity: Mild Weakness (hip flex 3/5, knee flex/ext 3/5, ankle DF/PF 3+/5) Sensation Sensation Right Upper Extremity: Intact/Normal Left Upper Extremity: Impaired Right Lower Extremity: Intact/Normal Left Lower Extremity: Impaired Comments: n/t noted in LUE and LLE Palpation Palpation Findings: None/Normal Balance Sitting Balance and Reactions Static Sitting Balance: Fair (fair+) Dynamic Sitting Balance: Fair (fair) Standing Balance and Reactions Static Standing Balance: Fair (fair-) Dynamic Standing Balance: Poor Comments Balance Assessment Comments: pt demonstrates bradykinesia. Functional Mobility Bed Mobility Rolling R/L: Min Assist and 1 person assist Supine to Sit: Min Assist and 1 person assist Transfers Sit to Stand: Min Assist and 1 person assist Stand to Sit: CGA and 1 person assist Safety Awareness Safety Awareness: Fair EVELIO INDEX SCORE: n/a Ambulation Ambulation Assistive Device Used: Rolling Walker Orthotic/Prosthetic Device: No Distance: 10ft Assistance needed with Ambulation: CGA, Min Assist and 1 person assist Gait Deviations: Step-to gait, Forward posture and Short stride Ambulation Comments: pt with very slow gait and bradykinesia when advancing LE's Factors Affecting Ambulation: Decreased Balance, Weakness, Decreased Coordination, Decreased Safety and Limited Endurance Treatment time Units charged Gait trainin Time with patient Length of Evaluation: 19 Total treatment time: 31 Patient Education Education Patient Education: Activity Modification and Education of Plan of Care Teaching Recipient: Patient Teaching Methods: Discussion Comments: discussion regarding POC Assessment Assessment Problem List:: Decreased level of function, Requires training/education, Decreased safety/Risk of falls and Weakness Rehab Potential: Fair Further Therapy Indicated?: Yes Candidate for Swing Bed for Therapy Services?: pt may be a candidate for swing bed for therapy. Evaluation Complexity: HISTORY: Medium, EXAM OF BODY SYSTEMS: Medium, CLINICAL PRESENTATION: Medium and CLINICAL DECISION MAKING: Medium Patient's Goal(s): Get stronger and return home as independent as possible Short Term Goals GOAL #1: pt independent with rolling and scooting in bed. Goal to be met by: 07/06/24 GOAL #2: pt transfer sup to/from sit SBA to CGA Goal to be met by: 07/06/24 GOAL #3: Transfer sit to/from stand CGA Goal to be met by: 07/06/24 GOAL #4: pt amb with rwx 50ft with CGA to min x 1 with improved sequencing Goal to be met by: 07/06/24 GOAL #5: Improve LLE strength to 4/5 Goal to be met by: 07/06/24 Belly Packer Goals GOAL #1: Transfer sup to/from sit to/from stand SBA to independent. Goal to be met by: 07/09/24 GOAL #2: pt amb household distances with rwx SBA Goal to be met by: 07/09/24 GOAL #3: Ascend/descend ramp with rwx SBA Goal to be met by: 07/09/24 Plan Plan of Care: Therapeutic EX, Neuromuscular Re-Educ and Therapeutic Activity Other:: gait training Frequency of Treatment: 1-2 X day, as tolerated Duration of Treatment: 5 days Anticipated Discharge Destination: undetermined Treatment Diagnosis (ICD 10 Codes): impaired balance R 26.81 gait difficulty R26.2 L side weakness M62.81 Has the Physician been added for Co-signature?: Yes
--- NOTE | 2024-07-03 13:33 | RS.OTINEVL ---
Subjective Patient information Date of Evaluation: 07/03/24 Date of Arrival on Unit: 06/30/24 Admitted From:: Home Diagnosis: L side weakness, slurred speach PRECAUTIONS: L side weak Usual Living Arrangement: Alone Living Arrangement Comments: grandson lives nextdoor Home Environment: House, Stairs (few) and Rail Medical History: Hypertension, Diabetes and Arthritis Medical History Comments:: hiatal hernia, depression, liver hemagioma, GERD, osteopenia, DJD, glaucoma Echo on 07/03/24: borderline LVH, mitral valve prolapse with mild regurgitation LATEX ALLERGY?: Yes Surgical History: Hysterectomy Surgical History Comments:: trigger finger release, hernia repair Medications: see chart Subjective Information/ Patient Comments:: "I was able to walk to the car and get in the car but when I got to the ER, I couldn't get out of the car." Level of function Prior to this admission, the patient could do the following:: Independent Selfcare, Independent ADL's, Independent Ambulation, 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 Current Equipment Used at Home: was not using equipment prior to CVA, however has a w/c, rwx, ramp etc at home Pain Assessment Pain Pain Score: 2 Pain Location Body Site: Shoulder Pain Aggravating Factors: Exercise/Activity, Standing and Walking Pain Alleviating Factors: Sitting Interventions Objective Patient Orientation: Person, Place, Time and Situation Observation: Pt shows the Left side of body moving very slowly and not in full motion. Pt reports she could move on the way to the ER and then once she arrived here she could not. Pt has to really concentrate to move the LUE and LLE. Balance Sitting Balance Static Sitting Balance: Good Dynamic Sitting Balance: Good Standing Balance Static Standing Balance: Fair Dynamic Standing Balance: Fair ADL Skills Self Feeding Self Feeding: Supervision Grooming Grooming: Min Assist Grooming Set-up: Sitting Bathing Bathing UE: Min Assist Bathing LE: Mod Assist Bathing Set-up: Shower Dressing Dressing UE: Mod Assist Dressing LE: Max Assist Toilet Management Toilet Hygiene: Independent Toilet Clothing Management: Min Assist Functional Mobility Bed Mobility Scooting: Min Assist Transfers Sit to Stand: Min Assist Stand to Sit: CGA Stand Pivot Transfers: CGA Ambulation Weight Bearing Status: FWB Assistive Device Used: Rolling Walker Assistance needed with Ambulation: Min Assist EVELIO INDEX SCORE: n/a Additional Treatment Performed Time with patient Length of Evaluation: 18 Total treatment time: 21 Activities Do you enjoy playing games?: Yes Would you be interested in leaving your room for activities?: Yes Would you enjoy group activities?: Yes Do you have difficulty with your vision?: Yes Patient Interests:: Watching Television and Visiting/Socializing Patient Education Patient Education: Education of diagnosis, Home Exercise Program and Education of Plan of Care Teaching Recipient: Patient Teaching Methods: Discussion and Demonstration Assessment Problem List:: Decreased level of function, Requires training/education and Weakness Rehab Potential: Good Further Therapy Indicated?: Yes Evaluation Complexity: HISTORY: Medium, EXAM OF BODY SYSTEMS: Medium and CLINICAL DECISION MAKING: Medium Patient's Goal(s): To be able to return at Prior level of functioning which is independent. Short Term Goals Goals GOAL 1: Pt to complete toileting transfer Sup. Goal to be met by: 07/06/24 GOAL 2: Pt to increase dynamic standing activity to 10 minutes. Goal to be met by: 07/06/24 GOAL 3: Pt to increase LUE strength to 4/5. Goal to be met by: 07/06/24 GOAL 4: Pt to increase UB dressing to CGA. Goal to be met by: 07/06/24 GOAL 5: To be CGA with LB dressing. 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 Goal to be met by: 07/08/24 GOAL 2: Pt to complete Activity tolerance to 20 minutes. Goal to be met by: 07/08/24 GOAL 3: Pt to increase BUE strength to 4+/5. Goal to be met by: 07/08/24 Plan Plan of Care: Therapeutic EX, Neuromuscular Re-Educ, Therapeutic Activity and Self-Care/Home Management Frequency of Treatment: 1-2 X day, as tolerated Duration of Treatment: 5 days Treatment Diagnosis (ICD 10 Codes): Left side weakness G81.94, Z74.1 Need for assistance with personal care. Has the Physician been added for Co-signature?: Yes
[2024-07-03 13:51] VITALS: TEMP 98.1
--- NOTE | 2024-07-03 14:25 | DI ---
EXAM: CHEST RADIOGRAPH TECHNIQUE: Two views. Frontal and lateral. HISTORY: Cough. Recent stroke. COMPARISON: 06/30/2024 and older studies. FINDINGS: No pulmonary infiltrate is identified. No pleural effusion or pneumothorax is seen. Stable borderline cardiomegaly. Diffuse osteopenia. No acute displaced rib fractures are identified. Apparent mild pectus excvatum deformity. IMPRESSION: 1. No acute findings in the chest.
--- NOTE | 2024-07-03 16:08 | DCSUM ---
Admission Date Admission Date: 06/30/24 Discharge Date Discharge Date: 07/03/24 Admission Diagnosis Admission Diagnosis: 1. Acute stroke Discharge Diagnosis Discharge Diagnosis: 1. Acute stroke like symptoms, left sided 2. DM2, uncontrolled 3. Hypertension 4. Hyperlipidemia 5. Mitral valve prolapse Hospital Provider Hospital Provider: [facility] Physician Primary Care Physician: ALEX GOLDMAN MD Summary of History and Physical Summary of History and Physical: 79 yo female presented to the ER with stroke-like symptoms. Patient states she woke up around 4:45 feeling diaphoretic, blurry vision, and hot. Normally feels that way when her sugar is high. Attempted to get out of bed and was unable to move her L arm and leg. She was then able to call her sister and her speech on the phone to her was very slurred. Sister reports that when she got to her house 20 minutes later the speech was improving but still slurred. Last known well was approximately 8:30 pm last night 06/29/24. On arrival to the ER, speech was still mildly slurred, significant weakness to L upper and lower extremities as well. Dyshagia present. Vision changes had resolved at that time. ER NIH was 6. CT head negative. CTA neck negative. CTA head showed 9 mm hypodensity to the left frontal lobe. Admitted to Med/Surg Inpatient. Hospital Course Subjective: Patient treated with plavix and asa. Her symptoms have mildly improved. Her spe ech has improved, she states she still has some trouble getting her words out. ST has worked with her and progressed her diet. However she continues to have significant left upper and lower ext weakness. Pt reportedly had issues with proprioception initially, unable to tell where her left leg/foot was in space. That has improved. She's able to bear weight on that ext but still very weak. She has been moving her left arm with her right arm. She has some passive movement about 45 degrees flexion but unable to lift past that. 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 Describes decreased sensation and tingling. MRI performed today (delayed due to the holiday), and it showed no acute stroke. Spoke with Dr. Smith neuro at [facility] in [place]. He states her symptoms don't localize correctly for a CVA and he would be concerned about other etiologies such as Davi's paralysis, etc. He recommended transfer for a neuro consultation. [facility] had no beds. [facility] declined patient. [place] full, placed on wait list. DaughterMarleni, agreeable to go further away. Dr. Finnegan, hospitalist, at [facility] accepts patient. DaughterMarleni, updated on plan of care. Appearance: Pleasant, No Apparent Distress and Alert HEENT: MMM and Supple CVS: Other (RRR) Abdomen: Soft, Non-Tender and No Distention Respiratory: No Accessory Muscle Use Extremities: No Edema Additional Findings: Patient's speech is clear, much improved. Continues to have marked left sided upper and lower ext weakness against gravity. 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 Able to lift left arm about 45 degrees. Able to lift left leg about 2 inches off of cot. Able to flex/extend left foot. Complains of tingling. Facial expressions symmetric. Vital Signs: Most Recent Vital Signs Temperature 98.1 F 07/03/24 13:50 Temperature Source Temporal Artery Scan 07/03/24 13:50 Temperature Source Infrared 06/30/24 06:21 Pulse Rate 71 07/03/24 13:50 Respiratory Rate 19 07/03/24 13:50 Blood Pressure 149/88 H 07/03/24 13:50 Blood Pressure Mean 108 07/03/24 13:50 Blood Pressure Left Arm 145/82 06/30/24 11:05 Blood Pressure Location Left Arm 07/03/24 13:50 Blood Pressure Position Sitting 07/03/24 13:50 O2 Sat by Pulse Oximetry 98 07/03/24 13:50 Oxygen Delivery Method Room Air 07/03/24 13:50 Height 5 ft 6 in 07/01/24 21:57 Weight 61.3 kg 07/01/24 21:57 Telemetry Type Remote Telemetry 07/03/24 07:00 Telemetry Monitoring Continues 07/03/24 07:00 Telemetry Heart Rate 94 07/03/24 07:00 EKG SD Interval 0.16 07/03/24 07:00 EKG QRS Interval 0.06 07/03/24 07:00 Telemetry Strip Reading SR 07/03/24 07:00 Imaging: EXAM: CT OF THE HEAD WITHOUT CONTRAST FINDINGS: The visualized paranasal sinuses and mastoid air cells are clear in general. No acute calvarial abnormalities. Intracranially the ventricular and cisternal spaces are normal in size, shape and configuration for a patient of this age. No dominant mass or midline shift. No hydrocephalous. No acute intracranial hemorrhage or abnormal extraaxial fluid collections. Impression: No acute intracranial process. EXAM: CTA HEAD FINDINGS: CT head: There is 9 mm hypodensity in the left frontal lobe. Acute infarct cannot be excluded. No intracranial hemorrhage or extra-axial collection. No mass, mass effect or midline shift. The turk-white matter differentiation is preserved. The ventricles are normal in size. The basal cisterns are patent. The visualized paranasal sinuses and mastoid air cells are clear. There has been prior bilateral cataract surgery. The visualized osseous structures are unremarkable. CTA head: The distal cervical, petrous, cavernous, and supraclinoid segments of the internal carotid arteries are normal in contour and caliber. The anterior and middle cerebral arteries are normal in contour and caliber without large vessel occlusion. The vertebrobasilar system is patent. The superior cerebellar and posterior cerebral arteries are normal in contour and caliber. There is no intracranial aneurysm or arteriovenous malformation. IMPRESSION: 1. 9 mm hypodensity in the left frontal lobe. Acute infarct cannot be excluded. 2. No large vessel occlusion or high grade stenosis within the [place] of Fam. EXAM: CTA NECK FINDINGS: There is atherosclerotic calcification along the aortic arch. The origin of the right common carotid artery is patent. There is atherosclerotic calcification at the right carotid bifurcation without significant stenosis. The origin of the left common carotid artery is excluded from the field of view. The visualized left common carotid artery is unremarkable. There is atherosclerotic calcification at the left carotid bifurcation without significant stenosis. There is mild focal stenosis at the origin of the right vertebral artery. The origin of the left vertebral artery is excluded from the field of view. The visualized left vertebral artery is normal in contour and caliber without significant stenosis. No aneurysm or vascular malformation is identified. There is multilevel disc desiccation and degenerative change involving posterior disc osteophyte complexes, facet joint hypertrophy, and uncovertebral joint hypertrophy resulting in various degrees of central canal and neural foraminal stenosis. There is 6 mm right thyroid nodule. IMPRESSION: 1. Small calcified plaques at bilateral carotid bifurcations without hemodynamically significant stenosis. 2. Mild focal stenosis at the origin of the right vertebral artery. EXAM: MRI OF THE BRAIN WITHOUT CONTRAST HISTORY: cerebrovascular accident, slurred speech TECHNIQUE: Multiplanar imaging of the brain was performed using T1, T2, inversion recovery, diffusion, T2 gradient sequences. Comparison 09/16/2023. FINDINGS: As no restricted diffusion. The lateral ventricles and cortical sulci are normal. The basal cisterns are patent. Normal flow voids are identified within the basal cisterns. The seventh and eighth cranial nerve complexes are normal. Normal flow signal is identified within the dural venous sinuses. Scattered T2 high signal foci are seen within the supratentorial white matter. No acute hemorrhages are seen. There is no mass effect. There are no extraaxial collections. The craniocervical junction and midline structures are normal. The soft tissues of the skull base and nasopharynx appear normal. The paranasal sinuses and mastoid air cells are clear. IMPRESSION: There is no acute cerebral infarction. Mild to moderate chronic small vessel ischemic changes seen within the supratentorial white matter. No acute intracranial abnormalities are seen. Date of Exam: 07/01/2024Ordering Physician: HOSPITALIST-[place]/ PCP Nathan GOLDMAN Room #: 115 Reason for Echo: STROKE, DM2, DYSLIPIDEMIA, HTN, MVP M-Mode Normal Adult Results LV Dimensions Normal Adult Results AoV Opening excursions >1.6 >1.6 LVEDD-base- 3.5-5.8 4.1 Ao root dimensions 2.0-3.7 3.3 LVESD-base- 3.1-4.6 L. Atrium dimensions 1.9-3.8 3.1 Post. Wall thickness 0.8-1.1 1.2 IV septum (thickness) 0.7-1.2 1.2 Post. Wall excursion 0.72-1.3 NORMAL Septal motion NORMAL Systolic motion R. Ventricular cavity 1.5-2.0 NORMAL LVEF 60% >60% Paradoxical septal wall motion NORMAL 2-D : MITRAL VALVE PROLAPSE NOTED ON LEFT PARASTERNAL LONG AXIS AND APICAL FOUR CHAMBER VIEW. TRICUSPID VALVE, PULMONARY VALVE AND AORTIC VALVE = NORMAL, NORMAL LEFT VENTRICLE SIZE AND CONTRACTILITY--NO EFFUSION, NO THROMBUS M-MODE: MV: MITRAL VALVE PROLAPSE LATE SYSTOLIC AV: NORMAL TV: NORMAL PV: NORMAL CHAMBER SIZE: NORMAL WALL MOTION: NORMAL PERICARDIUM: NORMAL INTERPRETATION: 1. BORDERLINE LEFT VENTRICLE HYPERTROPHY 2. MITRAL VALVE PROLAPSE WITH MILD MITRAL REGURGITATION 3. TRICUSPID VALVE, PULMONARY VALVE AND AORTIC VALVE= NORMAL 4. NORMAL LEFT VENTRICLE SIZE AND LEFT VENTRICLE CONTRACTILITY CXR 07/03/24 NO ACUTE ABNORMALITY Lab Results Last 24 Hours: 07/03/24 05:12 WBC 4.94 RBC 4.11 L Hgb 11.2 L Hct 36.4 L MCV 88.6 MCH 27.3 MCHC 30.8 L RDW Coeff of Jluis 14.4 Plt Count 193 Immature Gran % (Auto) 0.2 Neut % (Auto) 43.6 Lymph % (Auto) 41.7 [place] % (Auto) 9.5 Eos % (Auto) 4.0 Baso % (Auto) 1.0 Neut # (Auto) 2.2 Lymph # (Auto) 2.1 [place] # (Auto) 0.5 Eos # (Auto) 0.2 Baso # (Auto) 0.1 Immature Gran # (Auto) 0.0 Sodium 138.1 Potassium 4.27 Chloride 106.0 Carbon Dioxide 29.1 Anion Gap 7.27 BUN 11.7 Creatinine 0.73 Estimated GFR (MDRD) 77.00 BUN/Creatinine Ratio 16.02 Glucose 273.0 H Calcium 8.33 L Total Bilirubin 1.33 H AST 27.8 ALT 17.8 Alkaline Phosphatase 132.0 Total Protein 6.18 L Albumin 3.56 Globulin 2.62 Albumin/Globulin Ratio 1.35 Discharge Instructions Discharge Planning: Discharge Planning > [address] Zahra Goldman. Transfer to [facility]. Discharge Medications: Medications at Discharge (Home Meds & RX) Discharge Plan Discharge Discharge Orders: Discharge Patient (ONCE); Ordered 07/03/24 Ordered By: TONI ALONSO Activity Restrictions/Additional Instructions: TRANSFER TO [facility] DR. FINNEGAN, HOSPITALIST, ACCEPTING Patient Disposition: TSF SHORT-TRM HOSP Did you review [place] EXPLOSIVES WORKER for ALL controlled substances?: Not Applicable Discussed opioids are addictive and Narcan is available by prescription or from pharmacy.: No Condition: Stable
[2024-07-03 18:28] VITALS: BP 118/66; PULSE 73; RESP 16
--- NOTE | 2024-07-06 13:20 | OTDC ---
Date of Evaluation:06/30/24 Diagnosis:[L side weakness] Number of visits:[1] Last Date of Service:[07/03/24] Reason For Discharge:[Transferred out to [facility]] Discharge Summary:[Pt's MRI did not show a CVA.] STONE
== END 2024-07-03 19:10 | disposition short-term general hospital (02) | DRG 66 ==
LOC: ED 06:15 → MEDSURG B 10:25
PROVIDERS: ADMIT Hospitalist; ATTEND Physician Assistant

== ENCOUNTER 2025-07-13 21:48 | Inpatient (IN) ==
[2025-07-13 22:55] LABS: IMMATURE GRANULOCYTE # (AUTO) 0.1 (0.0-1.0); IMMATURE GRANULOCYTE % (AUTO) 0.4 % (0.0-5.0); RDW COEFFICIENT OF VARIATION 14.7 % (11.6-14.8)
[2025-07-13 23:09] LABS: CREATININE 0.89 mg/dL (0.60-1.30); INR 1.06 SI (0.0-3.9)
[2025-07-13 23:22] LABS: MOLECULAR FLU A NEGATIVE BY NAAT (NEGATIVE); MOLECULAR FLU B NEGATIVE BY NAAT (NEGATIVE); RSV MOLECULAR NEGATIVE BY NAAT (NEGATIVE); SARS COV-2 RNA RAPID NAAT NEGATIVE (NEGATIVE)
[2025-07-13] MEDS: SODIUM CHLORIDE 1,000 ML IV ONE (23:49)
--- NOTE | 2025-07-13 23:50 | DI ---
EXAM: FRONTAL VIEW OF THE CHEST. HISTORY: Chest pain and shortness of breath. COMPARISON: Chest radiograph 09/07/2024. FINDINGS: Aortic calcifications. Normal heart size. Elevated right hemidiaphragm. Opacities at the left lung base. No visible pleural effusion or pneumothorax. Bones appear demineralized. IMPRESSION: Left basilar opacities concerning for pneumonia.
[2025-07-13] MEDS: MAXIPIME 2 GM/50 ML D5W 2 GM/50 ML BAG IV ONE (23:51)
--- NOTE | 2025-07-14 00:10 | ED.PDOC ---
General [facility] ED Provider: Dr. TONIA MART DO Chief Complaint: Diabetes Stated Complaint: 80-year-old female brought to the emergency department by family concern for generalized weakness. She reportedly fell earlier today due to being weak and called EMS for a lift assist. She continued to feel poorly and eventually decided come to the ER. She feels as though she has had a fever at some point today. Denies headache chest pain shortness of breath or abdominal pain. History of diabetes. No known sick contacts. No treatment prior to arrival. Poor oral intake recently. Time Seen by Provider: 07/13/25 22:17 Information Source: Patient and Other Primary Care Provider: CRISTY BUSBY APRN Nursing and Triage Documentation Reviewed and Agree: Yes Opioid Naive vs. Tolerant What is Opioid Naive?: *Opioid Naive implies the patient is not already taking opioids or not chronically receiving opioids on a daily basis. *PRN dosing is not "usually" associated with tolerance. *Patients are at higher risk of over-sedation and aspiration. What is Opioid Tolerant?: *Opioid Tolerance implies less than the expected response to an opioid. *Acquired tolerance is defined by the patient taking 60mg of oral morphine daily (or equianalgesic dose of another opioid) for 1 week or more. *Often associated with chronic pain. *May take more than usual dose to achieve desired pain control. Review of Systems Review Of Systems Constitutional: Reports No symptoms All Other Systems: Reviewed and Negative [facility] Medical History (Updated 07/14/25 @ 00:11 by TONIA MART DO) Chest pain R07.9 - CHEST PAIN, UNSPECIFIED (ICD-10) Parkinson disease G20 - Parkinson's disease (ICD-10) Abdominal hernia without obstruction or gangrene K46.9 - Unspecified abdominal hernia without obstruction or gangrene (ICD- 10) Hiatal hernia K44.9 - Diaphragmatic hernia without obstruction or gangrene (ICD-10) Depression F32.A - Depression, unspecified (ICD-10) Blind left eye H54.40 - Blindness, one eye, unspecified eye (ICD-10) Glaucoma H40.9 - Unspecified glaucoma (ICD-10) Asthmatic bronchitis J45.909 - Unspecified asthma, uncomplicated (ICD-10) GERD (gastroesophageal reflux disease) K21.9 - Gastro-esophageal reflux disease without esophagitis (ICD-10) Osteopenia M85.80 - Other specified disorders of bone density and structure, unspecified site (ICD-10) Liver hemangioma D18.03 - Hemangioma of intra-abdominal structures (ICD-10) Tremor of left hand R25.1 - Tremor, unspecified (ICD-10) Sciatica, right side M54.31 - Sciatica, right side (ICD-10) Degenerative joint disease (DJD) of lumbar spine M47.816 - Spondylosis without myelopathy or radiculopathy, lumbar region (ICD-10) Degenerative joint disease of spine M47.9 - Spondylosis, unspecified (ICD-10) Diverticula of colon K57.30 - Diverticulosis of large intestine without perforation or abscess without bleeding (ICD-10) Seasonal allergies J30.2 - Other seasonal allergic rhinitis (ICD-10) Family History FATHER Diabetes Social History Smoking and tobacco status: Never smoker Alcohol intake: never Substance use type: does not use Special luz needs: No Agree to transfusion: Yes Adopted: No Caregiver/support person: No Foster care: No Household members: none Housing: house Marital status: W / Lives independently: Yes Number of children: 6 service: No care home: No History of recent travel: No Sexually active: No Do you think of yourself as: straight/heterosexual Current gender identity: female Seatbelt use: always Drives intoxicated or rides with intoxicated driver manager: No Water heater temperature set < 120 degrees: Yes Working smoke detector in home: Yes Fire extinguisher in home: Yes Carbon monoxide detector in home: Yes Firearms in home: No Surgical History Cataract H26.9 - Unspecified cataract (ICD-10) Status post trigger finger release right Z98.890 - Other specified postprocedural states (ICD-10) History of hernia repair erik Z98.890 - Other specified postprocedural states (ICD-10) Z87.19 - Personal history of other diseases of the digestive system (ICD-10) Female Reproductive History Menstrual Hx Hysterectomy: Yes Hx Tubal Ligation: No Physical Exam Physical Exam Appearance: Reports Ill-appearing, No pain distress and Well-nourished Ill-appearing: Moderate Eyes: Reports TINO, EOMI and Conjunctiva clear ENT: Reports Oropharynx normal Neck: Supple Respiratory: Reports Airway patent, Breath sounds clear and Respirations nonlabored Cardiovascular: Reports RRR and Pulses normal GI/: Reports Soft and Nontender Musculoskeletal: Reports Normal strength and ROM intact Skin: Reports Warm, Dry and Normal color Neurological: Reports Sensation intact, Motor intact, Alert and Oriented Psychiatric: Reports Affect appropriate and Mood appropriate Interpretation EKG Interpretation EKG Interpretation By: ED Physician Time of EKG #1: 22:52 Rate: Tachy (102) Rhythm: Sinus Ectopy: None [place]: Left ST Segment: Normal Interpretation: Nonischemic Radiology Interpretation Radiology Interpretation By: Radiologist Radiology Results: Positive (Basilar pneumonia) Exam Interpreted: Portable CXR Re-Evaluation Re-Evaluation Additional Comments: 80-year-old female presents to the ER with generalized weakness. She is tachycardic on presentation and ill-appearing. Concern for DKA. Nonfocal neuroexam. Vital signs stable other than the tachycardia. She is not hypoxic. Respiratory illness not excluded however. Chest x-ray subsequently does suggest possibility of basilar consolidations consistent with pneumonia. Sepsis workup immediately initiated in addition to DKA workup. She does have trace ketones in addition to an acidosis on her metabolic profile and an anion gap over 23. Her blood glucose is under 200 however. For this reason, will not start an insulin drip immediately, will consider D5 normal saline to work towards closing the anion gap. Antibiotics given for the pneumonia and lactic acid obtained as well as blood cultures for sepsis guidelines. 2 g cefepime given upon arrival. 0010: Tissue reperfusion reassessment completed with overall improvement, stable vital signs. Patient has been admitted to the hospitalist service for further management Physician Progress Note Physician Progress Note: All EKGs and plain film imaging independently reviewed and interpreted by me unless stated otherwise. CTs interpreted by radiology unless otherwise stated. All pediatric patients are accompanied by parent or legal guardian as primary historian and/or validate patient report unless otherwise stated. Course Course 07/13/25 22:49 07/13/25 22:49 Orders, Labs, Meds: Lab Review 07/13/25 07/13/25 07/13/25 22:25 22:49 23:19 WBC 14.19 H RBC 5.03 Hgb 13.7 Hct 43.3 MCV 86.1 MCH 27.2 MCHC 31.6 L RDW Coeff of Jluis 14.7 Plt Count 250 Immature Gran % (Auto) 0.4 Neut % (Auto) 90.2 H Lymph % (Auto) 5.6 L Ford % (Auto) 3.6 Eos % (Auto) 0.1 Baso % (Auto) 0.1 Neut # (Auto) 12.8 H Lymph # (Auto) 0.8 Ford # (Auto) 0.5 Eos # (Auto) 0.0 Baso # (Auto) 0.0 Immature Gran # (Auto) 0.1 PT 11.0 INR 1.06 APTT 26.5 Sodium 131.4 L Potassium 4.04 Chloride 98.4 Carbon Dioxide 13.8 L Anion Gap 23.24 BUN 22.9 H Creatinine 0.89 Estimated GFR (MDRD) 61.00 BUN/Creatinine Ratio 25.73 Glucose 184.6 H Lactic Acid 2.37 H Calcium 8.81 Magnesium 1.95 Total Bilirubin 1.49 H AST 33.9 ALT 17.5 Alkaline Phosphatase 118.4 Troponin I 0.027 NT-Pro-B Natriuret Pep 963 H Total Protein 7.31 Albumin 3.83 Globulin 3.48 Albumin/Globulin Ratio 1.10 Lipase 47.1 Acetone, Qual Small Influ A Molecular Assay Negative by naat Influ B Molecular Assay Negative by naat RSV Antigen Negative by naat SARS CoV-2 RNA Rapid ALISON Negative Orders Category Date Time Status [facility] ADMISSION 07/13/25 23:56 Active EKG-(ED & IP/OBS ONLY) Stat CARDIO 07/13/25 22:58 Completed BLOOD GLUCOSE MONITORING (MED/SURG) 0630,1100,1700,2100 CARE 07/13/25 23:57 Active GIVE HS SNACK 2100 CARE 07/13/25 23:57 Active INTAKE & OUTPUT Q8HR CARE 07/13/25 23:57 Active IP: INSERT SALINE LOCK ONCE CARE 07/13/25 23:57 Active REMINDER: Give Insulin if Needed Q1HR CARE 07/13/25 23:56 Active TELEMETRY MONITORING TELE CARE 07/13/25 23:57 Active VITAL SIGNS Q8HR CARE 07/13/25 23:57 Active ADA 1800 IAN. DIET DIETARY 07/14/25 Breakfast Ordered HS SNACK DIETARY 07/13/25 Dinner Ordered IV [ED IV/MEDIPORT/POWERPORT] .ONCE EMERGENCY 07/13/25 22:58 Active ACETONE, QUALITATIVE Stat LAB 07/13/25 22:49 Completed BLOOD CULTURE (ED ONLY) Stat LAB 07/13/25 23:19 Received CBC W/ AUTO DIFF DAILY@0600 LAB 07/14/25 06:00 Ordered CBC W/ AUTO DIFF DAILY@0600 LAB 07/15/25 06:00 Ordered CBC W/ AUTO DIFF Stat LAB 07/13/25 22:49 Completed CMP [COMPREHENSIVE METABOLIC PANEL] Stat LAB 07/13/25 22:49 Completed COMPREHENSIVE METABOLIC PANEL DAILY@0600 LAB 07/14/25 06:00 Ordered COMPREHENSIVE METABOLIC PANEL DAILY@0600 LAB 07/15/25 06:00 Ordered COVID [SARS COV-2 RNA RAPID ALISON] Stat LAB 07/13/25 22:25 Completed COVID [SARS COV-2 RNA RAPID ALISON] Stat LAB 07/13/25 22:59 Ordered ED PROBNP [NT-PROBNP(ED)] Stat LAB 07/13/25 22:49 Completed FLU A & B MOLECULAR [FLU A/B MOLECULAR] Stat LAB 07/13/25 22:25 Completed FLU A & B MOLECULAR [FLU A/B MOLECULAR] Stat LAB 07/13/25 22:59 Ordered LACTIC ACID Stat LAB 07/13/25 23:19 Completed LIPASE Stat LAB 07/13/25 22:49 Completed MAGNESIUM Stat LAB 07/13/25 22:49 Completed PT WITH INR Stat LAB 07/13/25 22:49 Completed PTT [PARTIAL THROMBOPLASTIN TIME] Stat LAB 07/13/25 22:49 Completed RSV Stat LAB 07/13/25 22:25 Completed RSV Stat LAB 07/13/25 22:59 Ordered TROPONIN I Stat LAB 07/13/25 22:49 Completed URINALYSIS C & S IF INDICATED Stat LAB 07/13/25 22:19 Uncollected URINALYSIS C & S IF INDICATED Stat LAB 07/13/25 22:59 Uncollected 0.9 % Sodium Chloride [Saline Flush] Meds 07/13/25 22:57 Active 1 syr IVF PRN PRN Acetaminophen [Tylenol] Meds 07/13/25 23:56 Ordered 650 mg PO Q4H PRN Cefepime 2 gm/D5w [Maxipime 2 gm/50 ml D5w] Meds 07/13/25 22:57 Discontinued 2 gm in 50 ml IV ONCE Enoxaparin Sodium [Lovenox] Meds 07/14/25 09:00 Ordered 40 mg SUBCUT DAILY Potassium Chloride/D5-0.9%NaCl [D5%-Ns-KCl 20 Meq/l IV Meds 07/13/25 23:45 Ordered Daisy] 1,000 ml IV 75 mls/hr Sodium Chloride 0.9% [Sodium Chloride] 1,000 ml Meds 07/13/25 22:57 Discontinued IV BOLUS Sodium Chloride 0.9% [Sodium Chloride] 1,000 ml Meds 07/13/25 23:37 Active IV BOLUS RESUSCITATION STATUS Routine OTHERS 07/13/25 23:56 Ordered CHEST, 1V AP ONLY Stat RADS 07/13/25 22:58 Completed Medications Generic Name Dose Route Start Last Admin Trade Name Freq PRN Reason Stop Dose Admin Acetaminophen 650 mg 07/13/25 23:56 Acetaminophen 325 Mg Tablet PO Q4H PRN Mild Pain Enoxaparin Sodium 40 mg 07/14/25 09:00 Enoxaparin Sodium 40 Mg/0.4 Ml Syr SUBCUT DAILY WALTER Sodium Chloride 1,000 mls @ 1,000 mls/hr 07/13/25 23:37 Sodium Chloride IV 07/14/25 00:36 BOLUS ONE Potassium Chloride/Dextrose/Sod Cl 1,000 mls @ 75 mls/hr 07/13/25 23:45 D5%-Ns-Kcl 20 Meq/L Iv Daisy IV .[id number] WALTER Sodium Chloride 1 syr 07/13/25 22:57 0.9% Sodium Chloride 10 Ml Disp.Syrin IVF PRN PRN To flush IV Discontinued Medications Generic Name Dose Route Start Last Admin Trade Name Freq PRN Reason Stop Dose Admin CEFEPIME 2 GM/D5W 2 gm in 50 mls @ 100 mls/hr 07/13/25 22:57 07/13/25 23:51 Maxipime 2 Gm/50 Ml D5w IV 07/13/25 23:26 100 mls/hr ONCE ONE Administration Sodium Chloride 1,000 mls @ 1,000 mls/hr 07/13/25 22:57 07/13/25 23:49 Sodium Chloride IV 07/13/25 23:56 1,000 mls/hr BOLUS ONE Administration Vital Signs: Temp Pulse Resp BP Pulse Ox 07/13/25 21:54 99.2 F 100 22 H 128/57 L 93 L Discharge Plan Discharge Patient Disposition: ADMITTED INPATIENT Discharge Problem: Sepsis, Pneumonia, DKA (diabetic ketoacidosis) Did you review [place] [employer] for ALL controlled substances?: Not Applicable ED Provider: TONIA MART Condition: Stable
[2025-07-14] MEDS: SODIUM CHLORIDE 1,000 ML IV ONE (01:07)
[2025-07-14] MEDS: D5%-NS-KCL 20 MEQ/L IV SOL 1,000 ML IV SCH ×2 (01:44→03:24)
[2025-07-14] MEDS: ACETAMINOPHEN 1,000 MG/100 ML BAG IV ONE (02:21)
[2025-07-14] MEDS ORDERED: CORDARONE IV STA (02:33)
[2025-07-14] MEDS ORDERED: DEXTROSE 5% IV STA (02:33)
[2025-07-14] MEDS ORDERED: WATER IV STA (02:33)
[2025-07-14 02:55] LABS: CREATININE 0.85 mg/dL (0.60-1.30)
[2025-07-14] MEDS: CALCIUM GLUCONATE 10% IVP STA (03:08)
[2025-07-14] MEDS: CORDARONE IVP STA (03:08)
[2025-07-14 03:43] LABS: GLUCOSE, URINE (UA) 2+ (NEGATIVE); LEUKOCYTE ESTERASE ,URINE Negative (NEGATIVE); URINE, BLOOD Trace-intact (NEGATIVE)
[2025-07-14 03:44] LABS: SQUAMOUS EPITHELIAL CELL,UR NOT PRESENT (0-5)
[2025-07-14 03:49] LABS: URINE RBC, MICROSCOPIC 0-2 (0-2)
[2025-07-14 04:45] LABS: IMMATURE GRANULOCYTE # (AUTO) 0.1 (0.0-1.0); IMMATURE GRANULOCYTE % (AUTO) 0.6 % (0.0-5.0); RDW COEFFICIENT OF VARIATION 14.6 % (11.6-14.8)
[2025-07-14 04:56] LABS: CREATININE 0.81 mg/dL (0.60-1.30)
[2025-07-14] MEDS: POTASSIUM CHLORIDE 20 MEQ/100 ML PREMIX 20 MEQ/100 ML BAG IV ONE (05:23)
[2025-07-14] MEDS: POTASSIUM CHL 10% ORAL SOL PO ONE (05:23)
[2025-07-14 09:09] LABS: CREATININE 0.82 mg/dL (0.60-1.30)
[2025-07-14] MEDS: ROCEPHIN 1 GM/50 ML D5W 1 GM/50 ML BAG IV SCH (10:30)
[2025-07-14] MEDS: DOXYCYCLINE PO SCH (10:38)
[2025-07-14] MEDS: CARAFATE PO SCH (10:39)
[2025-07-14] MEDS: CYMBALTA PO SCH (10:40)
[2025-07-14] MEDS: PROTONIX PO SCH (10:41)
[2025-07-14] MEDS: FLORASTOR PO SCH (10:43)
[2025-07-14] MEDS: JARDIANCE PO SCH (10:44)
[2025-07-14] MEDS: LOVENOX SUBCUT SCH (10:49)
--- NOTE | 2025-07-14 11:36 | PCM ---
Date of Service Date Seen by Provider: 07/14/25 Time Seen by Provider: 09:15 Admit Day/Time Admission Date: 07/13/25 Reason for Admission Chief Complaint: HIGH BLOOD SUGARS, SOB Hospital Provider Hospital Provider: MILEY GOLDMAN MD, [facility] Primary Care Physician Primary Care Physician: CRISTY BUSBY APRN History of Present Illness History of Present Illness: 80 yo female with pmh of parkinson's disease, diabetes, GERD, and neuropathy presented to the ER with complaints of weakness. States she hasn't felt well for the last few days, blood sugars have been higher, and has had chills. Denies any known fever that she knows of, shortness of breath, cough, or other symptoms. O2 sat in ER was 93% on RA, chest x-ray showed left sided pneumonia. Anion gap was found to be 23, small acetone, and glucose was in 180s. Given fluids and corrected DKA in ER. Hypokalemia present prior to admission to the floor. K 2.63. Replacement given. Admitted to med/surg observation. Case Discussed With Case Discussed With: Patient's case was discussed with the ER Physicians, Dr. Rodriguez. [facility] Medical History Chest pain R07.9 - CHEST PAIN, UNSPECIFIED (ICD-10) Parkinson disease G20 - Parkinson's disease (ICD-10) Abdominal hernia without obstruction or gangrene K46.9 - Unspecified abdominal hernia without obstruction or gangrene (ICD- 10) Hiatal hernia K44.9 - Diaphragmatic hernia without obstruction or gangrene (ICD-10) Depression F32.A - Depression, unspecified (ICD-10) Blind left eye H54.40 - Blindness, one eye, unspecified eye (ICD-10) Glaucoma H40.9 - Unspecified glaucoma (ICD-10) Asthmatic bronchitis J45.909 - Unspecified asthma, uncomplicated (ICD-10) GERD (gastroesophageal reflux disease) K21.9 - Gastro-esophageal reflux disease without esophagitis (ICD-10) Osteopenia M85.80 - Other specified disorders of bone density and structure, unspecified site (ICD-10) Liver hemangioma D18.03 - Hemangioma of intra-abdominal structures (ICD-10) Tremor of left hand R25.1 - Tremor, unspecified (ICD-10) Sciatica, right side M54.31 - Sciatica, right side (ICD-10) Degenerative joint disease (DJD) of lumbar spine M47.816 - Spondylosis without myelopathy or radiculopathy, lumbar region (ICD-10) Degenerative joint disease of spine M47.9 - Spondylosis, unspecified (ICD-10) Diverticula of colon K57.30 - Diverticulosis of large intestine without perforation or abscess without bleeding (ICD-10) Seasonal allergies J30.2 - Other seasonal allergic rhinitis (ICD-10) Surgical History Cataract H26.9 - Unspecified cataract (ICD-10) Status post trigger finger release right Z98.890 - Other specified postprocedural states (ICD-10) History of hernia repair erik Z98.890 - Other specified postprocedural states (ICD-10) Z87.19 - Personal history of other diseases of the digestive system (ICD-10) Family History FATHER Diabetes Social History Smoking and tobacco status: Never smoker Alcohol intake: never Substance use type: does not use Special luz needs: No Agree to transfusion: Yes Adopted: No Caregiver/support person: No Foster care: No Household members: none Housing: house Marital status: W / Lives independently: Yes Number of children: 6 service: No USP: No History of recent travel: No Sexually active: No Do you think of yourself as: straight/heterosexual Current gender identity: female Seatbelt use: always Drives intoxicated or rides with intoxicated interstate bus driver: No Water heater temperature set < 120 degrees: Yes Working smoke detector in home: Yes Fire extinguisher in home: Yes Carbon monoxide detector in home: Yes Firearms in home: No Allergies Allergies Allergy/AdvReac Type Severity Reaction Status Date / Time lactose AdvReac Nausea Verified 06/24/25 14:25 latex AdvReac Rash Verified 06/24/25 14:25 Penicillins AdvReac Rash Verified 06/24/25 14:25 Sulfa (Sulfonamide AdvReac Rash Verified 06/24/25 14:25 Antibiotics) Current Medications Home Medications Acetaminophen (Acetaminophen 325 Mg Tablet) 650 mg PO Q4H PRN PRN Reason: Mild Pain Albuterol/Ipratropium (Ipratropium/Albuterol Vial.Neb) 3 ml NEB RTQ6H PRN PRN Reason: Wheezing Atorvastatin Calcium (Atorvastatin Calcium 20 Mg Tablet) 40 mg PO BEDTIME [facility] Doxycycline Hyclate (Doxycycline Hyclate 100 Mg Capsule) 100 mg PO Q12HR [facility] Stop: 07/17/25 08:59 Last Admin: 07/14/25 10:38 Dose: 100 mg Duloxetine HCl (Duloxetine Hcl 30 Mg Capsule.) 30 mg PO DAILY [facility] Last Admin: 07/14/25 10:40 Dose: 30 mg Empagliflozin (Empagliflozin 10 Mg Tablet) 25 mg PO DAILY [facility] Last Admin: 07/14/25 10:44 Dose: 25 mg Enoxaparin Sodium (Enoxaparin Sodium 40 Mg/0.4 Ml Syr) 40 mg SUBCUT DAILY [facility] Last Admin: 07/14/25 10:49 Dose: 40 mg Gabapentin (Gabapentin 100 Mg Capsule) 100 mg PO BEDTIME [facility] CEFTRIAXONE/D5W 1 GM PREMIX (Rocephin 1 Gm/50 Ml D5w) 1 gm in 50 mls @ 100 mls/hr IV DAILY [facility] Stop: 07/17/25 08:59 Last Admin: 07/14/25 10:30 Dose: 100 mls/hr Insulin Glargine (Insulin Glargine,Hum.Rec.Anlog 100 Units/Ml) 40 unit SUBCUT 1700 [facility] Insulin Human Lispro (Insulin Lispro 100 Unit/Ml (10 Ml Vial)) 6 unit SUBCUT TIDWM2 [facility] Latanoprost (Latanoprost 2.5 Ml Opth Daisy) 1 drop EACHEYE BEDTIME [facility] Pantoprazole Sodium (Pantoprazole Sodium 40 Mg Tablet.) 40 mg PO BIDAC2 [facility] Last Admin: 07/14/25 10:41 Dose: 40 mg Saccharomyces Boulardii (Saccharomyces Boulardii 250 Mg Capsule) 250 mg PO BID [facility] Last Admin: 07/14/25 10:43 Dose: 250 mg Sodium Chloride (0.9% Sodium Chloride 10 Ml Disp.Syrin) 1 syr IVF PRN PRN PRN Reason: To flush IV Sucralfate (Sucralfate 1 Gm Tablet) 1 gm PO ACHS2 [facility] Last Admin: 07/14/25 11:34 Dose: Not Given latanoprost 0.005 % eye drops 1 drp BOTHEYES BEDTIME 08/30/18 [History Confirmed 07/14/25] pen needle, diabetic 31 gauge x 3/16" (TRUEplus Pen Needle) #100 ea 03/08/23 [Rx Confirmed 06/24/25] gabapentin 100 mg capsule 100 mg PO BEDTIME 06/30/24 [History Confirmed 07/14/25] blood sugar diagnostic #100 ea 07/03/24 [Rx Confirmed 06/24/25] blood-glucose meter #1 ea 07/03/24 [Rx Confirmed 06/24/25] lancets 21 gauge (Color Lancets) #100 ea 07/03/24 [Rx Confirmed 06/24/25] atorvastatin 40 mg tablet 40 mg PO BEDTIME #90 tabs 01/07/25 [Rx Confirmed 07/14/25] blood-glucose sensor (Wireless Tech G7 Sensor device) #9 ea 05/16/25 [Rx Confirmed 06/24/25] blood-glucose,net repairer,cont (Dexcom G7 Restaurant Host) #1 ea 05/16/25 [Rx Confirmed 06/24/25] duloxetine 30 mg capsule,delayed release 30 mg PO DAILY #90 caps 06/10/25 [Rx Confirmed 07/14/25] empagliflozin 25 mg tablet (Jardiance) 25 mg PO DAILY #30 tabs 07/08/25 [Rx Confirmed 07/14/25] insulin lispro 100 unit/mL subcutaneous pen 6 unit (0.06 mL) subcut 3XD #15 caps 07/08/25 [Rx Confirmed 07/14/25] sucralfate 1 gram tablet 1 g PO 4XD #120 tabs 07/08/25 [Rx Confirmed 07/14/25] insulin glargine 100 unit/mL (3 mL) subcutaneous pen (Lantus Solostar U-100 Insulin) 40 unit subcut 1700 07/14/25 [History Confirmed 07/14/25] metformin 1,000 mg tablet 1,000 mg PO 1700 07/14/25 [History Confirmed 07/14/25] pantoprazole 40 mg tablet,delayed release 40 mg PO Q12HR 07/14/25 [History Confirmed 07/14/25] Opioid Naive vs. Tolerant Does Patient Take Opioids?: No Is Patient Opioid Naive?: Yes What is Opioid Naive?: *Opioid Naive implies the patient is not already taking opioids or not chronically receiving opioids on a daily basis. *PRN dosing is not "usually" associated with tolerance. *Patients are at higher risk of over-sedation and aspiration. Is Patient Opioid Tolerant?: No What is Opioid Tolerant?: *Opioid Tolerance implies less than the expected response to an opioid. *Acquired tolerance is defined by the patient taking 60mg of oral morphine daily (or equianalgesic dose of another opioid) for 1 week or more. *Often associated with chronic pain. *May take more than usual dose to achieve desired pain control. Review of Systems Constitutional: Reports Chills and Weakness; Denies Fever Head: Reports Normocephalic Eyes: Reports No symptoms Ears: Reports No symptoms Nose: Reports No symptoms Mouth: Reports No symptoms Throat: Reports No symptoms Cardiovascular: Reports No symptoms; Denies Chest pain Respiratory: Reports No symptoms; Denies Cough or Shortness of air Gastrointestinal: Reports No symptoms Genitourinary: Reports No Symptoms Musculoskeletal: Reports No symptoms Endocrine: Reports No symptoms Hematology: Reports No symptoms Immunology: Reports No symptoms Neurological: Reports No symptoms Psychiatric: Reports No symptoms Physical examination Most Recent Vital Signs: Most Recent Vital Signs Temperature 97.9 F 07/14/25 10:00 Temperature Source Oral 07/14/25 10:00 Temperature Source Infrared 07/14/25 05:00 Pulse Rate 102 H 07/14/25 10:00 Respiratory Rate 16 07/14/25 10:00 Blood Pressure 150/85 H 07/14/25 10:00 Blood Pressure Mean 106 07/14/25 10:00 Blood Pressure Location Right Radial Artery 07/14/25 10:00 O2 Sat by Pulse Oximetry 95 07/14/25 10:00 Oxygen Delivery Method Nasal Cannula 07/14/25 11:00 Oxygen Flow Rate 2 07/14/25 10:00 Height 5 ft 6 in 07/13/25 21:54 Weight 64.047 kg 07/13/25 22:19 Telemetry Heart Rate 74 07/17/24 10:57 Appearance: Positive No Apparent Distress and Alert and Oriented x3 Skin: Positive Warm and Other (pale) HEENT: Positive Normocephalic and PERRLA Neck: Positive Supple and Midline Trachea Chest/Lungs: Positive Symmetrical With Equal Breath Sounds, Rhonci (LLL) and Good Air Movement all 4 Lung Cifuentes; Negative Wheezes Heart: Positive RRR and Pulses Normal GI/: Positive Soft, Nontender, Bowel Sounds Normal and No Distention Musculoskeletal: Positive Not Examined Extremities: Positive Intact Peripheral Pulses, Stable Joints Without Laxity and Good ROM in All Joints Neurological: Positive Sensation Intact, Motor intact, Reflexes Intact, Alert, Oriented and Other (generalized weakness) Labs This Visit Labs This Visit: Labs This Visit 07/13/25 07/13/25 07/13/25 22:25 22:49 23:19 WBC 14.19 H RBC 5.03 Hgb 13.7 Hct 43.3 MCV 86.1 MCH 27.2 MCHC 31.6 L RDW Coeff of Jluis 14.7 Plt Count 250 Immature Gran % (Auto) 0.4 Neut % (Auto) 90.2 H Lymph % (Auto) 5.6 L Ripley % (Auto) 3.6 Eos % (Auto) 0.1 Baso % (Auto) 0.1 Neut # (Auto) 12.8 H Lymph # (Auto) 0.8 R[place]y # (Auto) 0.5 Eos # (Auto) 0.0 Baso # (Auto) 0.0 Immature Gran # (Auto) 0.1 PT 11.0 INR 1.06 APTT 26.5 Sodium 131.4 L Potassium 4.04 Chloride 98.4 Carbon Dioxide 13.8 L Anion Gap 23.24 BUN 22.9 H Creatinine 0.89 Estimated GFR (MDRD) 61.00 BUN/Creatinine Ratio 25.73 Glucose 184.6 H Lactic Acid 2.37 H Calcium 8.81 Magnesium 1.95 Total Bilirubin 1.49 H AST 33.9 ALT 17.5 Alkaline Phosphatase 118.4 Troponin I 0.027 NT-Pro-B Natriuret Pep 963 H Total Protein 7.31 Albumin 3.83 Globulin 3.48 Albumin/Globulin Ratio 1.10 Lipase 47.1 Urine Color Urine Clarity Urine pH Ur Specific [place] Urine Protein Urine Glucose (UA) Urine Ketones Urine Blood Urine Nitrite Urine Bilirubin Urine Urobilinogen Ur Leukocyte Esterase Urine Microscopic RBC Urine Microscopic WBC Ur Squamous Epith Cells Urine Bacteria Acetone, Qual Small Influ A Molecular Assay Negative by naat Influ B Molecular Assay Negative by naat RSV Antigen Negative by naat SARS CoV-2 RNA Rapid ALISON Negative 07/14/25 07/14/25 07/14/25 02:40 03:37 04:40 WBC 10.81 H RBC 3.90 L Hgb 10.7 L D Hct 33.6 L D MCV 86.2 MCH 27.4 MCHC 31.8 RDW Coeff of Jluis 14.6 Plt Count 207 Immature Gran % (Auto) 0.6 Neut % (Auto) 87.4 H Lymph % (Auto) 8.3 L Ripley % (Auto) 3.4 Eos % (Auto) 0.0 Baso % (Auto) 0.3 Neut # (Auto) 9.4 H Lymph # (Auto) 0.9 [place] # (Auto) 0.4 Eos # (Auto) 0.0 Baso # (Auto) 0.0 Immature Gran # (Auto) 0.1 PT INR APTT Sodium 131.8 L 133.4 L Potassium 3.11 L 2.63 L* Chloride 105.3 107.3 H Carbon Dioxide 19.0 L 20.2 L Anion Gap 10.61 8.53 BUN 21.2 H 21.7 H Creatinine 0.85 0.81 Estimated GFR (MDRD) 65.00 68.00 BUN/Creatinine Ratio 24.94 26.79 Glucose 66.2 L D 91.3 Lactic Acid Calcium 7.65 L 8.17 L Magnesium Total Bilirubin 0.89 AST 32.4 ALT 14.5 Alkaline Phosphatase 92.7 D Troponin I NT-Pro-B Natriuret Pep Total Protein 6.01 L Albumin 2.95 L Globulin 3.06 Albumin/Globulin Ratio 0.96 Lipase Urine Color Yellow Urine Clarity Clear Urine pH 5.5 Ur Specific [place] 1.025 Urine Protein 2+ H Urine Glucose (UA) 2+ H Urine Ketones 4+ Urine Blood Trace-intact H Urine Nitrite Negative Urine Bilirubin Negative Urine Urobilinogen 0.2 Ur Leukocyte Esterase Negative Urine Microscopic RBC 0-2 Urine Microscopic WBC 5-10 Ur Squamous Epith Cells Not present Urine Bacteria Trace Acetone, Qual Influ A Molecular Assay Influ B Molecular Assay RSV Antigen SARS CoV-2 RNA Rapid ALISON 07/14/25 09:11 WBC RBC Hgb Hct MCV MCH MCHC RDW Coeff of Jluis Plt Count Immature Gran % (Auto) Neut % (Auto) Lymph % (Auto) Ripley % (Auto) Eos % (Auto) Baso % (Auto) Neut # (Auto) Lymph # (Auto) [place] # (Auto) Eos # (Auto) Baso # (Auto) Immature Gran # (Auto) PT INR APTT Sodium 134.8 Potassium 4.31 Chloride 108.2 H Carbon Dioxide 22.2 Anion Gap 8.71 BUN 20.5 H Creatinine 0.82 Estimated GFR (MDRD) 67.00 BUN/Creatinine Ratio 25.00 Glucose 187.3 H D Lactic Acid Calcium 8.25 L Magnesium Total Bilirubin AST ALT Alkaline Phosphatase Troponin I NT-Pro-B Natriuret Pep Total Protein Albumin Globulin Albumin/Globulin Ratio Lipase Urine Color Urine Clarity Urine pH Ur Specific [place] Urine Protein Urine Glucose (UA) Urine Ketones Urine Blood Urine Nitrite Urine Bilirubin Urine Urobilinogen Ur Leukocyte Esterase Urine Microscopic RBC Urine Microscopic WBC Ur Squamous Epith Cells Urine Bacteria Acetone, Qual Influ A Molecular Assay Influ B Molecular Assay RSV Antigen SARS CoV-2 RNA Rapid ALISON Microbiology This Visit 07/14/25 03:37 Urine,Random Urine Culture - Preliminary Imaging Imaging: EXAM: FRONTAL VIEW OF THE CHEST. HISTORY: Chest pain and shortness of breath. COMPARISON: Chest radiograph 09/07/2024. FINDINGS: Aortic calcifications. Normal heart size. Elevated right hemidiaphragm. Opacities at the left lung base. No visible pleural effusion or pneumothorax. Bones appear demineralized. IMPRESSION: Left basilar opacities concerning for pneumonia. Review Statement Review Statement: I have independently reviewed and interpreted the labs/EKGs/imaging that were ordered by the ER provider. I have reviewed all outside records that are available currently in our EMR including imaging/notes/labs from previous visits. Plan Plan: 1. Sepsis in setting of Pneumonia - blood cultures pending, IV fluids given in ER, rocephin and doxy ordered 2. L lower lobe pneumonia - rocephin and doxy, nebs prn, sputum, mrsa, strep pneumo, and legionella ordered 3. DKA - Resolved 4. Hypokalemia - Resolved, replacement given 5. Diabetes Mellitus - ADA diet, accuchecks qid, home insulin regimen resumed 6. GERD - chronic, continue home medications DVT Prophylaxis: Lovenox Time Spent: Greater than 80 minutes spent with patient, 50% of the time spent with this patient was devoted to counseling and coordination of care. Advanced Care Plannin minutes spent discussing advance care planning. Disposition: Admit to: Med/Surg Observation Full Code Discussed Plan of Care with Dr. Wai Goldman. Medications Medication Orders: Medications Ordered Category Date Time Status 0.9 % Sodium Chloride [Saline Flush] Meds 07/13/25 22:57 Active 1 syr IVF PRN PRN Acetaminophen [Tylenol] Meds 07/13/25 23:56 Active 650 mg PO Q4H PRN Atorvastatin Calcium [Lipitor] Meds 07/14/25 21:00 Active 40 mg PO BEDTIME Ceftriaxone/D5w 1 gm Premix [Rocephin 1 gm/50 ml D5w] Meds 07/14/25 09:00 Active 1 gm in 50 ml IV DAILY Doxycycline Hyclate [Vibramycin] Meds 07/14/25 09:00 Active 100 mg PO Q12HR Duloxetine HCl [Cymbalta] Meds 07/14/25 09:40 Active 30 mg PO DAILY Empaglifozin [Jardiance] Meds 07/14/25 10:30 Active 25 mg PO DAILY Enoxaparin Sodium [Lovenox] Meds 07/14/25 09:00 Active 40 mg SUBCUT DAILY Gabapentin [Neurontin] Meds 07/14/25 21:00 Active 100 mg PO BEDTIME Insulin Glargine,Hum.rec.anlog [Lantus] Meds 07/14/25 17:00 Active 40 unit SUBCUT 1700 Insulin Lispro [Humalog (10 ml Vial)] Meds 07/14/25 12:00 Active 6 unit SUBCUT TIDWM2 Latanoprost [Xalatan] Meds 07/14/25 21:00 Active 1 drop EACHEYE BEDTIME Pantoprazole Sodium [Protonix] Meds 07/14/25 09:40 Active 40 mg PO BIDAC2 Saccharomyces Boulardii [Florastor] Meds 07/14/25 09:00 Active 250 mg PO BID Sucralfate [Carafate] Meds 07/14/25 09:40 Active 1 gm PO ACHS2
[2025-07-14 12:58] VITALS: BMI 27.1
[2025-07-14] MEDS: HUMALOG (10 ML VIAL) SUBCUT SCH (12:59)
[2025-07-14] MEDS: MOTRIN PO PRN (15:18)
[2025-07-14] MEDS: LANTUS SUBCUT SCH (18:42)
[2025-07-14] MEDS: LIPITOR PO SCH (21:07)
[2025-07-14] MEDS: NEURONTIN PO SCH (21:08)
[2025-07-14] MEDS: XALATAN EACHEYE SCH (21:10)
[2025-07-15] MEDS: TYLENOL PO PRN (02:08)
[2025-07-15] MEDS: LOPRESSOR IVP ONE ×2 (03:55→04:40)
[2025-07-15] MEDS: SODIUM CHLORIDE 1,000 ML IV SCH (04:41)
[2025-07-15 05:39] LABS: IMMATURE GRANULOCYTE # (AUTO) 0.0 (0.0-1.0); IMMATURE GRANULOCYTE % (AUTO) 0.5 % (0.0-5.0); RDW COEFFICIENT OF VARIATION 14.9 % (11.6-14.8)
[2025-07-15 05:55] LABS: CREATININE 0.87 mg/dL (0.60-1.30)
[2025-07-15] MEDS ORDERED: DEXTROSE 5% IV STA (06:48)
[2025-07-15] MEDS ORDERED: CORDARONE IV STA (06:48)
[2025-07-15] MEDS ORDERED: WATER IV STA (06:48)
[2025-07-15] MEDS: CORDARONE IVP STA (07:20)
[2025-07-15] MEDS: CARDIZEM INJ IVP ONE (08:32)
[2025-07-15] MEDS: LOVENOX SUBCUT SCH (08:34)
--- NOTE | 2025-07-15 09:23 | CT ---
EXAM: CT HEAD WITHOUT CONTRAST 07/15/2025. SAGITTAL AND CORONAL REFORMATTED IMAGES OBTAINED HISTORY: Altered mental status COMPARISON: 07/03/2024 FINDINGS: There is no evidence of intracranial hemorrhage. The midline is maintained. There is no hydrocephalus. Generalized atrophy. Chronic small vessel ischemic change. No cerebellar tonsillar ectopia. Evaluation of the calvarium shows no fracture. The mastoid air cells are normally pneumatized. IMPRESSION: No acute intracranial abnormality. All CT scans are performed using dose optimization techniques as appropriate to the performed exam and include at least one of the following: Automated exposure control, adjustment of the mA and/or kV according to size, and the use of iterative reconstruction technique.
[2025-07-15] MEDS: CARDIZEM 125 MG in SODIUM CHLORIDE 100ML 100 ML IV SCH (09:55)
[2025-07-15] MEDS: POTASSIUM CHLORIDE 20 MEQ/100 ML PREMIX 20 MEQ/100 ML BAG IV ONE (10:01)
--- NOTE | 2025-07-15 11:06 | PCM.PROG ---
Date/Time Seen Date Seen by Provider: 07/15/25 Time Seen by Provider: 08:20 Provider Provider: TONI ALONSO PA-C, [facility] Chief Complaint Chief Complaint: HIGH BLOOD SUGARS, SOB Subjective Subjective: Patient not herself this morning per nursing staff. Pt has been tachycardic in 150s this morning. Was given dose of amiodarone without change. EKG showing a fib. Pt feels sob, denies chest pain. Noted to be febrile as well. Objective Appearance: Positive Alert and Oriented x3 and Ill-Appearing Chest/Lungs: Positive Clear to Auscultation Bilaterally; Negative Rales, Rhonci or Wheezes Heart: Positive Irregular Rhythm and Tachycardia GI/: Positive Soft, Nontender, Bowel Sounds Normal and No Distention Neurological: Positive Cranial Nerves Intact, Alert (slow to respond, but elizabeth ntually does, answers questions appropriately ), Oriented and Other (generalized weakness ) Vital Signs Vital Signs: Vital Signs: Last 24 Hours 07/14/25 12:00 07/14/25 12:00 07/14/25 12:33 Temperature Temperature Source Pulse Rate Respiratory Rate Blood Pressure Blood Pressure Mean Blood Pressure Location Blood Pressure Position O2 Sat by Pulse Oximetry 95 Oxygen Delivery Method Nasal Cannula Nasal Cannula Nasal Cannula Oxygen Flow Rate 2 Telemetry Type Telemetry Monitoring Telemetry Heart Rate Telemetry SPO2 EKG VA Interval EKG QRS Interval Telemetry Strip Reading 07/14/25 13:00 07/14/25 14:00 07/14/25 14:00 Temperature 102.9 F H Temperature Source Oral Pulse Rate 112 H Respiratory Rate 14 Blood Pressure 142/93 H Blood Pressure Mean 109 Blood Pressure Location Right Radial Artery Blood Pressure Position O2 Sat by Pulse Oximetry 95 Oxygen Delivery Method Nasal Cannula Nasal Cannula Oxygen Flow Rate 2 Telemetry Type Remote Telemetry Telemetry Monitoring Continues Telemetry Heart Rate 113 H Telemetry SPO2 95 EKG VA Interval 0.19 EKG QRS Interval 0.09 Telemetry Strip Reading Tachycardia 07/14/25 14:57 07/14/25 16:00 07/14/25 17:00 Temperature Temperature Source Pulse Rate Respiratory Rate Blood Pressure Blood Pressure Mean Blood Pressure Location Blood Pressure Position O2 Sat by Pulse Oximetry Oxygen Delivery Method Nasal Cannula Nasal Cannula Nasal Cannula Oxygen Flow Rate Telemetry Type Telemetry Monitoring Telemetry Heart Rate Telemetry SPO2 EKG VA Interval EKG QRS Interval Telemetry Strip Reading 07/14/25 18:00 07/14/25 18:00 07/14/25 19:00 Temperature 97.5 F L Temperature Source Oral Pulse Rate 98 Respiratory Rate 18 Blood Pressure 119/71 Blood Pressure Mean 87 Blood Pressure Location Right Arm Blood Pressure Position O2 Sat by Pulse Oximetry 96 Oxygen Delivery Method Nasal Cannula Nasal Cannula Nasal Cannula Oxygen Flow Rate 2 Telemetry Type Telemetry Monitoring Telemetry Heart Rate Telemetry SPO2 EKG VA Interval EKG QRS Interval Telemetry Strip Reading 07/14/25 19:00 07/14/25 19:53 07/14/25 20:00 Temperature Temperature Source Pulse Rate Respiratory Rate Blood Pressure Blood Pressure Mean Blood Pressure Location Blood Pressure Position O2 Sat by Pulse Oximetry Oxygen Delivery Method Nasal Cannula Nasal Cannula Oxygen Flow Rate 2 Telemetry Type Remote Telemetry Telemetry Monitoring Continues Telemetry Heart Rate 90 Telemetry SPO2 97 EKG VA Interval 0.20 EKG QRS Interval 0.09 Telemetry Strip Reading SR 07/14/25 21:00 07/14/25 21:48 07/14/25 22:00 Temperature 97.5 F L Temperature Source Oral Pulse Rate 88 Respiratory Rate 18 Blood Pressure 124/69 Blood Pressure Mean 87 Blood Pressure Location Right Arm Blood Pressure Position Supine O2 Sat by Pulse Oximetry 95 Oxygen Delivery Method Nasal Cannula Nasal Cannula Nasal Cannula Oxygen Flow Rate 2 Telemetry Type Telemetry Monitoring Telemetry Heart Rate Telemetry SPO2 EKG VA Interval EKG QRS Interval Telemetry Strip Reading 07/14/25 22:54 07/15/25 00:00 07/15/25 01:00 Temperature Temperature Source Pulse Rate Respiratory Rate Blood Pressure Blood Pressure Mean Blood Pressure Location Blood Pressure Position O2 Sat by Pulse Oximetry Oxygen Delivery Method Nasal Cannula Nasal Cannula Nasal Cannula Oxygen Flow Rate Telemetry Type Telemetry Monitoring Telemetry Heart Rate Telemetry SPO2 EKG VA Interval EKG QRS Interval Telemetry Strip Reading 07/15/25 01:00 07/15/25 02:00 07/15/25 02:00 Temperature 102.1 F H Temperature Source Oral Pulse Rate 101 H Respiratory Rate 18 Blood Pressure Blood Pressure Mean Blood Pressure Location Blood Pressure Position O2 Sat by Pulse Oximetry 99 Oxygen Delivery Method Nasal Cannula Nasal Cannula Oxygen Flow Rate 2 Telemetry Type Remote Telemetry Telemetry Monitoring Continues Telemetry Heart Rate 105 H Telemetry SPO2 97 EKG VA Interval 0.18 EKG QRS Interval 0.[address] 07/15/25 03:00 07/15/25 03:00 07/15/25 04:00 Temperature 99.3 F Temperature Source Oral Pulse Rate 108 H Respiratory Rate Blood Pressure Blood Pressure Mean Blood Pressure Location Blood Pressure Position O2 Sat by Pulse Oximetry 95 Oxygen Delivery Method Room Air Room Air Room Air Oxygen Flow Rate Telemetry Type Telemetry Monitoring Telemetry Heart Rate Telemetry SPO2 EKG VA Interval EKG QRS Interval Telemetry Strip Reading 07/15/25 05:00 07/15/25 05:12 07/15/25 06:00 Temperature 97.1 F L Temperature Source Temporal Artery Scan Pulse Rate 127 H Respiratory Rate 18 Blood Pressure 110/79 Blood Pressure Mean 89 Blood Pressure Location Right Arm Blood Pressure Position Supine O2 Sat by Pulse Oximetry 97 Oxygen Delivery Method Room Air Nasal Cannula Nasal Cannula Oxygen Flow Rate 2 Telemetry Type Telemetry Monitoring Telemetry Heart Rate Telemetry SPO2 EKG VA Interval EKG QRS Interval Telemetry Strip Reading 07/15/25 06:00 07/15/25 07:00 07/15/25 07:00 Temperature Temperature Source Pulse Rate Respiratory Rate Blood Pressure Blood Pressure Mean Blood Pressure Location Blood Pressure Position O2 Sat by Pulse Oximetry 94 L Oxygen Delivery Method Nasal Cannula Nasal Cannula Oxygen Flow Rate 2 Telemetry Type Remote Telemetry Telemetry Monitoring Continues Telemetry Heart Rate 138 H Telemetry SPO2 97 EKG VA Interval 0.20 EKG QRS Interval 0.08 Telemetry Strip Reading SVT 07/15/25 07:54 07/15/25 08:00 07/15/25 08:08 Temperature Temperature Source Pulse Rate 141 H Respiratory Rate 18 Blood Pressure 110/67 Blood Pressure Mean 81 Blood Pressure Location Right Arm Blood Pressure Position Supine O2 Sat by Pulse Oximetry 97 Oxygen Delivery Method Nasal Cannula Nasal Cannula Nasal Cannula Oxygen Flow Rate 2 2 Telemetry Type Telemetry Monitoring Telemetry Heart Rate Telemetry SPO2 EKG VA Interval EKG QRS Interval Telemetry Strip Reading 07/15/25 08:34 07/15/25 09:00 07/15/25 10:00 Temperature 101.0 F H Temperature Source Oral Pulse Rate 155 H Respiratory Rate 28 H Blood Pressure 135/93 H Blood Pressure Mean 107 Blood Pressure Location Right Arm Blood Pressure Position Sitting O2 Sat by Pulse Oximetry 95 Oxygen Delivery Method Nasal Cannula Nasal Cannula Nasal Cannula Oxygen Flow Rate 2 2 Telemetry Type Telemetry Monitoring Telemetry Heart Rate Telemetry SPO2 EKG VA Interval EKG QRS Interval Telemetry Strip Reading 07/15/25 10:33 Temperature Temperature Source Pulse Rate Respiratory Rate Blood Pressure Blood Pressure Mean Blood Pressure Location Blood Pressure Position O2 Sat by Pulse Oximetry 96 Oxygen Delivery Method Nasal Cannula Oxygen Flow Rate 2 Telemetry Type Telemetry Monitoring Telemetry Heart Rate Telemetry SPO2 EKG VA Interval EKG QRS Interval Telemetry Strip Reading Lab Results Lab Results: Lab Results: Last 24 Hours 07/15/25 05:12 WBC 8.76 RBC 4.13 L Hgb 11.4 L Hct 36.8 L MCV 89.1 MCH 27.6 MCHC 31.0 L RDW Coeff of Jluis 14.9 H Plt Count 202 Immature Gran % (Auto) 0.5 Neut % (Auto) 86.9 H Lymph % (Auto) 8.0 L Clarke % (Auto) 3.8 Eos % (Auto) 0.1 Baso % (Auto) 0.7 Neut # (Auto) 7.6 H Lymph # (Auto) 0.7 Clarke # (Auto) 0.3 L Eos # (Auto) 0.0 Baso # (Auto) 0.1 Immature Gran # (Auto) 0.0 Sodium 132.3 L Potassium 3.28 L Chloride 106.8 Carbon Dioxide 20.7 L Anion Gap 8.08 BUN 15.5 Creatinine 0.87 Estimated GFR (MDRD) 63.00 BUN/Creatinine Ratio 17.81 Glucose 78.3 D Calcium 8.29 L Magnesium 2.55 H Total Bilirubin 0.63 AST 37.3 H ALT 20.8 Alkaline Phosphatase 107.8 Total Protein 6.24 L Albumin 3.08 L Globulin 3.16 Albumin/Globulin Ratio 0.97 TSH 1.090 Additional Comments Additional Comments: I have independently reviewed and interpreted the labs/EKGs/imaging ordered during this hospital stay. I have reviewed outside records that are available in our EMR that pertain to medical stay including imaging/notes/labs from previous visits. Active Medications Active Medications: Medications Generic Name Dose Route Start Last Admin Trade Name Freq PRN Reason Stop Dose Admin Acetaminophen 650 mg 07/13/25 23:56 07/15/25 10:11 Acetaminophen 325 Mg Tablet PO 650 mg Q4H PRN Administration Mild Pain Albuterol/Ipratropium 3 ml 07/14/25 11:36 Ipratropium/Albuterol Vial.Neb NEB RTQ6H PRN Wheezing Atorvastatin Calcium 40 mg 07/14/25 21:00 07/14/25 21:07 Atorvastatin Calcium 20 Mg Tablet PO 40 mg BEDTIME WALTER Administration Doxycycline Hyclate 100 mg 07/14/25 09:00 07/15/25 08:32 Doxycycline Hyclate 100 Mg Capsule PO 07/17/25 08:59 100 mg Q12HR WALTER Administration Duloxetine HCl 30 mg 07/14/25 09:40 07/15/25 08:32 Duloxetine Hcl 30 Mg Capsule.Dr PO 30 mg DAILY WALTER Administration Empagliflozin 25 mg 07/14/25 10:30 07/15/25 08:32 Empagliflozin 10 Mg Tablet PO 25 mg DAILY WALTER Administration Enoxaparin Sodium 70 mg 07/15/25 08:20 07/15/25 08:36 Enoxaparin Sodium 100 Mg/Ml Syr SUBCUT Not Given Q12HR WALTER Gabapentin 100 mg 07/14/25 21:00 07/14/25 21:08 Gabapentin 100 Mg Capsule PO 100 mg BEDTIME WALTER Administration CEFTRIAXONE/D5W 1 GM PREMIX 1 gm in 50 mls @ 100 mls/hr 07/14/25 09:00 07/15/25 08:32 Rocephin 1 Gm/50 Ml D5w IV 07/17/25 08:59 100 mls/hr DAILY WALTER Administration Sodium Chloride 1,000 mls @ 75 mls/hr 07/15/25 05:00 07/15/25 04:41 Sodium Chloride IV 75 mls/hr .[id number] WALTER Administration Diltiazem HCl 125 mg/ Sodium 125 mls @ 5 mls/hr 07/15/25 10:00 07/15/25 10:41 Chloride IV 15 mg/hr TITRATION WALTER 15 mls/hr Protocol Titration 5 MG/HR Ibuprofen 600 mg 07/14/25 14:12 07/14/25 15:18 Ibuprofen 600 Mg Tablet PO 600 mg Q6H PRN Administration Pain Insulin Glargine 40 unit 07/14/25 17:00 07/14/25 21:03 Insulin Glargine,Hum.Rec.Anlog 100 Units/Ml SUBCUT 40 unit 1700 WALTER Administration Insulin Human Lispro 6 unit 07/14/25 12:00 07/15/25 08:35 Insulin Lispro 100 Unit/Ml (10 Ml Vial) SUBCUT Not Given TIDWM2 WALTER Latanoprost 1 drop 07/14/25 21:00 07/14/25 21:10 Latanoprost 2.5 Ml Opth Daisy EACHEYE 1 drop BEDTIME WALTER Administration Pantoprazole Sodium 40 mg 07/14/25 09:40 07/15/25 07:19 Pantoprazole Sodium 40 Mg Tablet.Dr PO 40 mg BIDAC2 WALTER Administration Saccharomyces Boulardii 250 mg 07/14/25 09:00 07/15/25 08:32 Saccharomyces Boulardii 250 Mg Capsule PO 250 mg BID WALTER Administration Sodium Chloride 1 syr 07/13/25 22:57 0.9% Sodium Chloride 10 Ml Disp.Syrin IVF PRN PRN To flush IV Sodium Chloride 1 syr 07/14/25 21:00 07/15/25 06:55 0.9% Sodium Chloride 10 Ml Disp.Syrin IVF Not Given Q8HR WALTER Sucralfate 1 gm 07/14/25 09:40 07/15/25 08:32 Sucralfate 1 Gm Tablet PO 1 gm ACHS2 WALTER Administration Plan Plan: 1. Sepsis in setting of Pneumonia - blood cultures pending, IV fluids given in ER, rocephin and doxy ordered 2. L lower lobe pneumonia - rocephin and doxy, nebs prn, sputum, mrsa, strep pneumo, and legionella ordered 3. DKA - Resolved 4. A fib rvr - new diagnosis, echo ordered, lovenox 1 mg/kg q12hrs, given cardizem IVP, now on drip. Treat fever. 5. Hypokalemia - mild, ordered IV with goal of 4 6. Diabetes Mellitus - ADA diet, accuchecks qid, home insulin regimen resumed 7. GERD - chronic, continue home medications Dispo: Made inpatient today DVT: lovenox Update: Patient converted back to nsr, will start oral cardizem and titrate off of cardizem drip. Review Statement Review Statement: I have personally discussed and reviewed the patient's visit/currently labs/imaging/decision making with Dr. Goldman, my supervising attending. Greater that 50 minutes spent with patient, 50% of the time spent with this patient was devoted to counseling and coordination of care.
[2025-07-15] MEDS: CARDIZEM PO SCH (12:59)
[2025-07-15] MEDS: OMNIPAQUE 350 MG/ML 100ML IVP ONE (20:02)
--- NOTE | 2025-07-15 20:59 | CT ---
EXAM: CT ANGIOGRAPHY OF THE CHEST History, tachycardia and fever TECHNIQUE: 1.[address] chest utilizing CT angiography protocol. Multiplanar an three-dimensional reformations were performed. FINDINGS: Technically adequate for evaluation of pulmonary arteries. No pulmonary artery filling defects. Small bilateral pleural effusions. Consolidative change of the right and left lung bases. Atherosclerotic calcification of the aorta. No acute chest wall abnormality. No acute findings of the upper abdomen. IMPRESSION: 1. No evidence of pulmonary artery thrombus 2. Bilateral lung base consolidative change favoring pneumonia All CT scans are performed using dose optimization techniques as appropriate to the performed exam and include at least one of the following: Automated exposure control, adjustment of the mA and/or kV according to size, and the use of iterative reconstruction technique.
--- NOTE | 2025-07-15 21:03 | CT ---
EXAM: CT OF THE ABDOMEN AND PELVIS WITH CONTRAST TECHNIQUE: CT of the abdomen and pelvis was performed with contrast. Multiplanar reformats were performed. 100 ml Omnipaque 350. HISTORY: Tachycardia and fever. COMPARISON: CT chest same date., 09/03/2022 CT abdomen pelvis. FINDINGS: Imaged lower thorax: Bibasilar dense atelectasis versus pneumonia with left- sided pleural effusion. See separate chest CT dictation. There is a midline fat-containing hernia in the upper epigastric region Liver: Mild steatosis. Gallbladder/Bile Ducts: No biliary dilation. The gallbladder is normal. Spleen: Unremarkable. Pancreas: Normal. Adrenals: No discrete lesions. Kidneys/Ureters: No obvious stones or obstructive change. Small cortical cyst on the right Bowel/mesentery/peritoneum: There are some air and fluid-filled loops of small bowel. No specific zone of transition with some fluid seen at the small bowel and colon anastomoses. Could reflect mild ileus or enterocolitis. If there is any clinical concern for bowel obstruction recommend short-term follow-up in 24 hours Postoperative changes are present in the right colon from prior partial colectomy. No free fluid or free air.The sigmoid colon is decompressed but also mildly thickened. Diverticulosis is present. There is no surrounding fat stranding. The apparent thickening is likely secondary to the decompressed state. Correlate with any lower abdominal pain which might indicate a early col itis symptoms.. Retroperitoneum/vessels: No aortic aneurysm. No adenopathy. Pelvis: Bladder is decompressed by Stewart catheter.Uterus is absent. Adnexa not visualized.. Bones: Degenerative changes of the lumbar spine with disc bulge and shallow spondylolisthesis L3-4 resulting in mild canal stenosis. Degenerative changes result in canal or neural foraminal stenosis of L4-5 and neural foraminal stenosis and L5-S1.No acute fracture. IMPRESSION: 1. Bibasilar pulmonary infiltrates with left-sided effusion. 2. Mildly prominent fluid and air filled small bowel however there is also fluid to the ileocolonic anastomosis. May reflect enterocolitis or mild ileus. Recommend short-term follow-up repeat imaging if concern for obstruction. 3. Diverticulosis. No definitive evidence of diverticulitis although the sigmoid colon wall does appear to be mildly thickened. See above. 4. Degenerative changes of the lumbar spine. 5. There is a spinal stimulator device in the subcutaneous fat of the left buttock. 6. Epigastric abdominal hernia containing fat but no bowel loops. All CT scans are performed using dose optimization techniques as appropriate to the performed exam and includes at least one of the following: Automated exposure control, adjustment of the mA and/or kV according to size, and the use of iterative reconstruction technique. All CT scans are performed using dose optimization techniques as appropriate to the performed exam and include at least one of the following: Automated exposure control, adjustment of the mA and/or kV according to size, and the use of iterative reconstruction technique.
[2025-07-16 05:33] LABS: IMMATURE GRANULOCYTE # (AUTO) 0.0 (0.0-1.0); IMMATURE GRANULOCYTE % (AUTO) 0.4 % (0.0-5.0); RDW COEFFICIENT OF VARIATION 15.0 % (11.6-14.8)
[2025-07-16 05:48] LABS: CREATININE 0.74 mg/dL (0.60-1.30)
[2025-07-16] MEDS: K-DUR PO ONE (09:09)
--- NOTE | 2025-07-16 09:42 | PCM.PROG ---
Date/Time Seen Date Seen by Provider: 07/16/25 Time Seen by Provider: 08:30 Provider Provider: TONI ALONSO [facility]-C, [facility] Chief Complaint Chief Complaint: HIGH BLOOD SUGARS, SOB Subjective Subjective: Patient ran a fever this morning again. Labs continue to improve. Imaging showed bilateral pneumonia. She states she had a BM this morning. Denies specific complaints, just doesn't feel well. Has remained NSR. Objective Appearance: Positive Alert and Oriented x3 and Ill-Appearing Chest/Lungs: Positive Clear to Auscultation Bilaterally; Negative Rales, Rhonci or Wheezes Heart: Positive RRR GI/: Positive Soft, Nontender, Bowel Sounds Normal and No Distention Neurological: Positive Cranial Nerves Intact, Alert (slow to respond, but eventually does, answers questions appropriately ), Oriented and Other (generalized weakness ) Vital Signs Vital Signs: Vital Signs: Last 24 Hours 07/15/25 10:00 07/15/25 10:33 07/15/25 13:00 Temperature 101.0 F H Temperature Source Oral Pulse Rate 155 H Respiratory Rate 28 H Blood Pressure 135/93 H Blood Pressure Mean 107 Blood Pressure Location Right Arm Blood Pressure Position Sitting O2 Sat by Pulse Oximetry 95 96 Oxygen Delivery Method Nasal Cannula Nasal Cannula Oxygen Flow Rate 2 2 Telemetry Type Remote Telemetry Telemetry Monitoring Continues Telemetry Heart Rate 99 Telemetry SPO2 EKG WV Interval 0.18 EKG QRS Interval 0.08 Telemetry Strip Reading SR 07/15/25 14:00 07/15/25 14:00 07/15/25 18:00 Temperature 96.9 F L 100.4 F H Temperature Source Temporal Artery Scan Temporal Artery Scan Pulse Rate 90 98 Respiratory Rate 18 16 Blood Pressure 130/71 147/68 H Blood Pressure Mean 90 94 Blood Pressure Location Right Arm Right Arm Blood Pressure Position Sitting Supine O2 Sat by Pulse Oximetry 94 L 93 L Oxygen Delivery Method Nasal Cannula Nasal Cannula Nasal Cannula Oxygen Flow Rate 2 2 1 Telemetry Type Telemetry Monitoring Telemetry Heart Rate Telemetry SPO2 EKG WV Interval EKG QRS Interval Telemetry Strip Reading 07/15/25 19:00 07/15/25 19:05 07/15/25 20:00 Temperature Temperature Source Pulse Rate Respiratory Rate Blood Pressure Blood Pressure Mean Blood Pressure Location Blood Pressure Position O2 Sat by Pulse Oximetry Oxygen Delivery Method Nasal Cannula Nasal Cannula Oxygen Flow Rate 2 2 Telemetry Type Remote Telemetry Telemetry Monitoring Continues Telemetry Heart Rate 104 H Telemetry SPO2 93 EKG WV Interval 0.22 H EKG QRS Interval 0.[address] WITH 1ST DEGREE AVB & PVC 07/15/25 21:47 07/16/25 00:55 07/16/25 02:00 Temperature 98.7 F 99.0 F Temperature Source Oral Oral Pulse Rate 80 90 Respiratory Rate 20 18 Blood Pressure 111/66 Blood Pressure Mean 81 Blood Pressure Location Left Arm Blood Pressure Position Supine O2 Sat by Pulse Oximetry 93 L 94 L Oxygen Delivery Method Nasal Cannula Nasal Cannula Oxygen Flow Rate 2 2 Telemetry Type Remote Telemetry Telemetry Monitoring Continues Telemetry Heart Rate 82 Telemetry SPO2 97 EKG WV Interval 0.22 H EKG QRS Interval 0.07 Telemetry Strip Reading SR WITH 1ST DEGREE AVB & PVC 07/16/25 04:42 07/16/25 05:26 07/16/25 07:00 Temperature 101.8 F H Temperature Source Oral Pulse Rate 97 Respiratory Rate 20 Blood Pressure 128/75 Blood Pressure Mean 92 Blood Pressure Location Left Arm Blood Pressure Position Supine O2 Sat by Pulse Oximetry 94 L Oxygen Delivery Method Nasal Cannula Nasal Cannula Oxygen Flow Rate 2 2 Telemetry Type Remote Telemetry Telemetry Monitoring Continues Telemetry Heart Rate 87 Telemetry SPO2 94 EKG WV Interval 0.20 EKG QRS Interval 0.08 Telemetry Strip Reading SR w/ PACs and PVCs 07/16/25 08:00 Temperature Temperature Source Pulse Rate Respiratory Rate Blood Pressure Blood Pressure Mean Blood Pressure Location Blood Pressure Position O2 Sat by Pulse Oximetry Oxygen Delivery Method Nasal Cannula Oxygen Flow Rate 2 Telemetry Type Telemetry Monitoring Telemetry Heart Rate Telemetry SPO2 EKG WV Interval EKG QRS Interval Telemetry Strip Reading Lab Results Lab Results: Lab Results: Last 24 Hours 07/16/25 07/15/25 05:15 19:05 WBC 9.03 RBC 3.81 L Hgb 10.3 L Hct 32.4 L MCV 85.0 MCH 27.0 MCHC 31.8 RDW Coeff of Jluis 15.0 H Plt Count 215 Immature Gran % (Auto) 0.4 Neut % (Auto) 87.0 H Lymph % (Auto) 9.4 L [place] % (Auto) 2.7 Eos % (Auto) 0.1 Baso % (Auto) 0.4 Neut # (Auto) 7.9 H Lymph # (Auto) 0.9 [place] # (Auto) 0.2 L Eos # (Auto) 0.0 Baso # (Auto) 0.0 Immature Gran # (Auto) 0.0 Sodium 133.0 L Potassium 3.44 L Chloride 106.7 Carbon Dioxide 20.9 L Anion Gap 8.84 BUN 13.1 Creatinine 0.74 Estimated GFR (MDRD) 76.00 BUN/Creatinine Ratio 17.70 Glucose 122.5 H Calcium 7.64 L Total Bilirubin 0.59 AST 52.0 H ALT 26.1 Alkaline Phosphatase 120.7 Total Protein 6.01 L Albumin 2.87 L Globulin 3.14 Albumin/Globulin Ratio 0.91 Procalcitonin 1.98 H 2.37 H Additional Comments Additional Comments: I have independently reviewed and interpreted the labs/EKGs/imaging ordered during this hospital stay. I have reviewed outside records that are available in our EMR that pertain to medical stay including imaging/notes/labs from previous visits. Active Medications Active Medications: Medications Generic Name Dose Route Start Last Admin Trade Name Freq PRN Reason Stop Dose Admin Acetaminophen 650 mg 07/13/25 23:56 07/16/25 05:06 Acetaminophen 325 Mg Tablet PO 650 mg Q4H PRN Administration Mild Pain Albuterol/Ipratropium 3 ml 07/14/25 11:36 Ipratropium/Albuterol Vial.Neb NEB RTQ6H PRN Wheezing Atorvastatin Calcium 40 mg 07/14/25 21:00 07/15/25 21:27 Atorvastatin Calcium 20 Mg Tablet PO 40 mg BEDTIME WALTER Administration Diltiazem HCl 60 mg 07/15/25 12:30 07/16/25 05:53 Diltiazem Hcl 60 Mg Tablet PO 60 mg Q6HR WALTER Administration Doxycycline Hyclate 100 mg 07/14/25 09:00 07/16/25 09:09 Doxycycline Hyclate 100 Mg Capsule PO 07/17/25 08:59 100 mg Q12HR WALTER Administration Duloxetine HCl 30 mg 07/14/25 09:40 07/16/25 09:09 Duloxetine Hcl 30 Mg Capsule. PO 30 mg DAILY WALTER Administration Empagliflozin 25 mg 07/14/25 10:30 07/16/25 09:10 Empagliflozin 10 Mg Tablet PO 25 mg DAILY WALTER Administration Enoxaparin Sodium 70 mg 07/15/25 08:20 07/16/25 09:11 Enoxaparin Sodium 100 Mg/Ml Syr SUBCUT 70 mg Q12HR WALTER Administration Gabapentin 100 mg 07/14/25 21:00 07/15/25 21:28 Gabapentin 100 Mg Capsule PO 100 mg BEDTIME WALTER Administration CEFTRIAXONE/D5W 1 GM PREMIX 1 gm in 50 mls @ 100 mls/hr 07/14/25 09:00 07/16/25 09:11 Rocephin 1 Gm/50 Ml D5w IV 07/17/25 08:59 100 mls/hr DAILY WALTER Administration Sodium Chloride 1,000 mls @ 75 mls/hr 07/15/25 05:00 07/16/25 09:12 Sodium Chloride IV Infused .[id number] WALTER Infusion Ibuprofen 600 mg 07/14/25 14:12 07/14/25 15:18 Ibuprofen 600 Mg Tablet PO 600 mg Q6H PRN Administration Pain Insulin Glargine 40 unit 07/14/25 17:00 07/15/25 18:09 Insulin Glargine,Hum.Rec.Anlog 100 Units/Ml SUBCUT 40 unit 1700 WALTER Administration Insulin Human Lispro 6 unit 07/14/25 12:00 07/16/25 09:10 Insulin Lispro 100 Unit/Ml (10 Ml Vial) SUBCUT Not Given TIDWM2 WALTER Latanoprost 1 drop 07/14/25 21:00 07/15/25 21:28 Latanoprost 2.5 Ml Opth Daisy EACHEYE 1 drop BEDTIME WALTER Administration Pantoprazole Sodium 40 mg 07/14/25 09:40 07/16/25 05:52 Pantoprazole Sodium 40 Mg Tablet.Dr PO 40 mg BIDAC2 WALTER Administration Saccharomyces Boulardii 250 mg 07/14/25 09:00 07/16/25 09:11 Saccharomyces Boulardii 250 Mg Capsule PO 250 mg BID WALTER Administration Sodium Chloride 1 syr 07/13/25 22:57 0.9% Sodium Chloride 10 Ml Disp.Syrin IVF PRN PRN To flush IV Sodium Chloride 1 syr 07/14/25 21:00 07/16/25 05:52 0.9% Sodium Chloride 10 Ml Disp.Syrin IVF Not Given Q8HR WALTER Sucralfate 1 gm 07/14/25 09:40 07/16/25 05:52 Sucralfate 1 Gm Tablet PO 1 gm ACHS2 WALTER Administration Plan Plan: 1. Sepsis in setting of Pneumonia - blood cultures pending, IV fluids given in ER, rocephin and doxy ordered 2. Bilateral pneumonia, community acquired - rocephin and doxy, nebs prn, sputum, mrsa, strep pneumo, and legionella ordered 3. Acute hypoxic respiratory failure - Requiring 2L, wean when able. 4. DKA - Resolved 5. A fib rvr - Resolved, converted to NSR on 07/15. New diagnosis, echo ordered showing EF 65-70%, lovenox 1 mg/kg q12hrs. Started on oral cardizem. 6. Hypokalemia - mild, ordered replacement 7. Diabetes Mellitus - ADA diet, accuchecks qid, home insulin regimen resumed 8. GERD - chronic, continue home medications DVT: lovenox Review Statement Review Statement: I have personally discussed and reviewed the patient's visit/currently labs/imaging/decision making with Dr. Goldman, my supervising attending. Greater that 50 minutes spent with patient, 50% of the time spent with this patient was devoted to counseling and coordination of care.
[2025-07-16] MEDS: DUONEB NEB PRN (17:32)
[2025-07-17 05:24] LABS: IMMATURE GRANULOCYTE # (AUTO) 0.1 (0.0-1.0); IMMATURE GRANULOCYTE % (AUTO) 0.6 % (0.0-5.0); RDW COEFFICIENT OF VARIATION 15.0 % (11.6-14.8)
[2025-07-17 05:38] LABS: CREATININE 0.74 mg/dL (0.60-1.30)
[2025-07-17] MEDS: K-DUR PO ONE ×3 (06:30→21:49)
--- NOTE | 2025-07-17 09:28 | PCM.PROG ---
Date/Time Seen Date Seen by Provider: 07/17/25 Time Seen by Provider: 09:00 Provider Provider: [facility]ONI AL[facility]SO [facility] Chief Complaint Chief Complaint: HIGH BLOOD SUGARS, SOB Subjective Subjective: Patient looks better clinically today. Having watery diarrhea. States her abdomen is cramping. Daughter at bedside. States she had a stress test recently but unsure of results. Objective Appearance: Positive Alert and Oriented x3 and Ill-Appearing Chest/Lungs: Positive Clear to Auscultation Bilaterally; Negative Rales, Rhonci or Wheezes Heart: Positive RRR GI/: Positive Soft, Bowel Sounds Normal, No Distention and Tender (mild generalized tenderness ) Neurological: Positive Cranial Nerves Intact, Alert (more interactive today, smiles during conversation, answers questions appropriately ), Oriented and Other (generalized weakness ) Vital Signs Vital Signs: Vital Signs: Last 24 Hours 07/16/25 10:00 07/16/25 10:00 07/16/25 13:00 Temperature 98.0 F Temperature Source Temporal Artery Scan Pulse Rate 79 Respiratory Rate 20 Blood Pressure 126/67 Blood Pressure Mean 86 Blood Pressure Location Left Arm Blood Pressure Position Supine O2 Sat by Pulse Oximetry 97 Oxygen Delivery Method Nasal Cannula Nasal Cannula Oxygen Flow Rate 2 2 Telemetry Type Remote Telemetry Telemetry Monitoring Continues Irregular Telemetry Rate (Approximate) 90-100 BPM Telemetry Heart Rate 94 Telemetry SPO2 94 EKG [place] Interval 0.19 EKG QRS Interval 0.09 Telemetry Strip Reading Sinus/Sinus Tach 07/16/25 13:18 07/16/25 14:00 07/16/25 18:00 Temperature 98.3 F 99.0 F Temperature Source Temporal Artery Scan Temporal Artery Scan Pulse Rate 96 105 H Respiratory Rate 26 H 18 Blood Pressure 128/74 148/77 H Blood Pressure Mean 92 100 Blood Pressure Location Left Arm Left Arm Blood Pressure Position Supine Supine O2 Sat by Pulse Oximetry 95 95 92 L Oxygen Delivery Method Nasal Cannula Nasal Cannula Nasal Cannula Oxygen Flow Rate 2 1 2 Telemetry Type Telemetry Monitoring Irregular Telemetry Rate (Approximate) Telemetry Heart Rate Telemetry SPO2 EKG [place] Interval EKG QRS Interval Telemetry Strip Reading 07/16/25 19:00 07/16/25 20:00 07/16/25 20:00 Temperature Temperature Source Pulse Rate Respiratory Rate Blood Pressure Blood Pressure Mean Blood Pressure Location Blood Pressure Position O2 Sat by Pulse Oximetry Oxygen Delivery Method Nasal Cannula Nasal Cannula Oxygen Flow Rate 1 1 Telemetry Type Remote Telemetry Telemetry Monitoring Continues Irregular Telemetry Rate (Approximate) Telemetry Heart Rate 104 H Telemetry SPO2 93 EKG [place] Interval 0.20 EKG QRS Interval 0.[address] 07/16/25 22:00 07/17/25 01:00 07/17/25 02:00 Temperature 97.3 F L 96.8 F L Temperature Source Temporal Artery Scan Temporal Artery Scan Pulse Rate 88 86 Respiratory Rate 20 20 Blood Pressure 116/63 122/75 Blood Pressure Mean 80 90 Blood Pressure Location Right Arm Left Arm Blood Pressure Position Supine O2 Sat by Pulse Oximetry 93 L 95 Oxygen Delivery Method Nasal Cannula Nasal Cannula Oxygen Flow Rate 1 1 Telemetry Type Remote Telemetry Telemetry Monitoring Continues Irregular Telemetry Rate (Approximate) Telemetry Heart Rate Telemetry SPO2 95 EKG [place] Interval 0.23 H EKG QRS Interval 0.07 Telemetry Strip Reading SR w/1st degree AVB & PAC 07/17/25 06:00 07/17/25 07:00 Temperature 99.4 F Temperature Source Temporal Artery Scan Pulse Rate 99 Respiratory Rate 22 H Blood Pressure 126/78 Blood Pressure Mean 94 Blood Pressure Location Left Arm Blood Pressure Position Supine O2 Sat by Pulse Oximetry 93 L Oxygen Delivery Method Nasal Cannula Oxygen Flow Rate 1 Telemetry Type Remote Telemetry Telemetry Monitoring Continues Irregular Telemetry Rate (Approximate) Telemetry Heart Rate 89 Telemetry SPO2 92 L EKG [place] Interval 0.24 H EKG QRS Interval 0.08 Telemetry Strip Reading SR with 1st Degree AVB and occ. PVC Lab Results Lab Results: Lab Results: Last 24 Hours 07/17/25 05:12 WBC 8.32 RBC 3.65 L Hgb 10.0 L Hct 31.1 L MCV 85.2 MCH 27.4 MCHC 32.2 RDW Coeff of Jluis 15.0 H Plt Count 246 Immature Gran % (Auto) 0.6 Neut % (Auto) 85.0 H Lymph % (Auto) 9.1 L [place] % (Auto) 4.6 Eos % (Auto) 0.5 Baso % (Auto) 0.2 Neut # (Auto) 7.1 H Lymph # (Auto) 0.8 [place] # (Auto) 0.4 Eos # (Auto) 0.0 Baso # (Auto) 0.0 Immature Gran # (Auto) 0.1 Sodium 135.4 Potassium 2.76 L* Chloride 103.3 Carbon Dioxide 24.6 Anion Gap 10.26 BUN 11.9 Creatinine 0.74 Estimated GFR (MDRD) 76.00 BUN/Creatinine Ratio 16.08 Glucose 121.3 H Calcium 7.79 L Total Bilirubin 0.48 AST 51.2 H ALT 27.7 Alkaline Phosphatase 133.5 Total Protein 6.05 L Albumin 2.84 L Globulin 3.21 Albumin/Globulin Ratio 0.88 Procalcitonin 1.18 H Additional Comments Additional Comments: I have independently reviewed and interpreted the labs/EKGs/imaging ordered during this hospital stay. I have reviewed outside records that are available in our EMR that pertain to medical stay including imaging/notes/labs from previous visits. Active Medications Active Medications: Medications Generic Name Dose Route Start Last Admin Trade Name Freq PRN Reason Stop Dose Admin Acetaminophen 650 mg 07/13/25 23:56 07/17/25 06:43 Acetaminophen 325 Mg Tablet PO 650 mg Q4H PRN Administration Mild Pain Albuterol/Ipratropium 3 ml 07/14/25 11:36 07/17/25 02:44 Ipratropium/Albuterol Vial.Neb NEB 3 ml RTQ6H PRN Administration Wheezing Atorvastatin Calcium 40 mg 07/14/25 21:00 07/16/25 21:10 Atorvastatin Calcium 20 Mg Tablet PO 40 mg BEDTIME WALTER Administration Diltiazem HCl 60 mg 07/15/25 12:30 07/17/25 06:30 Diltiazem Hcl 60 Mg Tablet PO 60 mg Q6HR WALTER Administration Doxycycline Hyclate 100 mg 07/14/25 09:00 07/17/25 09:19 Doxycycline Hyclate 100 Mg Capsule PO 07/18/25 08:59 100 mg Q12HR WALTER Administration Duloxetine HCl 30 mg 07/14/25 09:40 07/17/25 09:19 Duloxetine Hcl 30 Mg Capsule.Dr PO 30 mg DAILY WALTER Administration Empagliflozin 25 mg 07/14/25 10:30 07/17/25 09:18 Empagliflozin 10 Mg Tablet PO 25 mg DAILY WALTRE Administration Enoxaparin Sodium 70 mg 07/15/25 08:20 07/17/25 09:18 Enoxaparin Sodium 100 Mg/Ml Syr SUBCUT 70 mg Q12HR WALTER Administration Gabapentin 100 mg 07/14/25 21:00 07/16/25 21:11 Gabapentin 100 Mg Capsule PO 100 mg BEDTIME WALTER Administration CEFTRIAXONE/D5W 1 GM PREMIX 1 gm in 50 mls @ 100 mls/hr 07/14/25 09:00 07/16/25 09:11 Rocephin 1 Gm/50 Ml D5w IV 07/18/25 08:59 100 mls/hr DAILY WALTER Administration Ibuprofen 600 mg 07/14/25 14:12 07/14/25 15:18 Ibuprofen 600 Mg Tablet PO 600 mg Q6H PRN Administration Pain Insulin Glargine 40 unit 07/14/25 17:00 07/16/25 17:04 Insulin Glargine,Hum.Rec.Anlog 100 Units/Ml SUBCUT 40 unit 1700 WALTER Administration Insulin Human Lispro 6 unit 07/14/25 12:00 07/16/25 17:05 Insulin Lispro 100 Unit/Ml (10 Ml Vial) SUBCUT 6 unit TIDWM2 WALTER Administration Latanoprost 1 drop 07/14/25 21:00 07/16/25 21:12 Latanoprost 2.5 Ml Opth Daisy EACHEYE 1 drop BEDTIME WALTER Administration Pantoprazole Sodium 40 mg 07/14/25 09:40 07/17/25 06:31 Pantoprazole Sodium 40 Mg Tablet.Dr PO 40 mg BIDAC2 WALTER Administration Potassium Chloride 40 meq 07/17/25 13:00 Potassium Chloride 20 Meq Tab PO 07/17/25 13:01 ONCE ONE Saccharomyces Boulardii 250 mg 07/14/25 09:00 07/17/25 09:20 Saccharomyces Boulardii 250 Mg Capsule PO 250 mg BID WALTER Administration Sodium Chloride 1 syr 07/13/25 22:57 0.9% Sodium Chloride 10 Ml Disp.Syrin IVF PRN PRN To flush IV Sodium Chloride 1 syr 07/14/25 21:00 07/17/25 06:32 0.9% Sodium Chloride 10 Ml Disp.Syrin IVF 1 syr Q8HR WALTER Administration Sucralfate 1 gm 07/14/25 09:40 07/17/25 06:30 Sucralfate 1 Gm Tablet PO 1 gm ACHS2 WALTER Administration Plan Plan: 1. Sepsis in setting of Pneumonia - blood cultures negative so far, IV fluids given in ER, rocephin and doxy ordered 2. Bilateral pneumonia, community acquired - rocephin and doxy, nebs prn, sputum, mrsa negative, strep pneumo, and legionella ordered 3. Acute hypoxic respiratory failure - Requiring 2L, wean when able. 4. DKA - Resolved 5. A fib rvr - Resolved, converted to NSR on 07/15. New diagnosis, echo ordered showing EF 65-70%, lovenox 1 mg/kg q12hrs, transition to eliquis today. Started on oral cardizem. Stress test on 07/03 was negative. 6. Hypokalemia - Worsened in setting of diarrhea, ordered replacement 7. Diabetes Mellitus - ADA diet, accuchecks qid, home insulin regimen resumed 8. GERD - chronic, continue home medications 9. Diarrhea - Check c diff, if negative will give imodium. DVT: lovenox to eliquis today Dispo: May be a swingbed candidate once medically stable Review Statement Review Statement: I have personally discussed and reviewed the patient's visit/currently labs/imaging/decision making with Dr. Goldman, my supervising attending. Greater that 50 minutes spent with patient, 50% of the time spent with this patient was devoted to counseling and coordination of care.
[2025-07-17] MEDS ORDERED: CEFPODOXIME PROXETIL PO SCH (10:00)
[2025-07-17] MEDS: IMODIUM PO PRN (10:48)
--- NOTE | 2025-07-17 13:00 | RS.PTINEVL ---
Subjective Patient information Date of Evaluation: 07/17/25 Date of Arrival on Unit: 07/14/25 Admitted From:: Home Diagnosis: pneumonia, sepsis, DKA Usual Living Arrangement: Alone Home Environment: House and Ramp Medical History: Hypertension, CVA/TIA and Arthritis Medical History Comments:: neuropathy, Parkinson's disease, hiatal hernia, depression, glaucoma, GERD, LATEX ALLERGY?: Yes Surgical History Comments:: hernia repair, trigger finger release Medications: see chart Subjective Information/ Patient Comments:: pt states that she is tired because she has had a busy morning however pt is willing to participate with PT. Level of function Prior to this admission, the patient could do the following:: Independent Selfcare, Independent ADL's, Independent Ambulation, Perform Teaching Young/Cooking, Drive and Participated in Social Activities Outside home Current Level of Function: Partially Dependent Current Equipment Used at Home: rollator, straight cane, W/C Interventions Objective Patient Orientation: Person, Place and Time Current Interventions: IV's, Oxygen (2 liters ) and Telemetry Observation: pt has had lopez removed. Range of Motion ROM Right Upper Extremity AROM: WFL's Left Upper Extremity AROM: WFL's Right Lower Extremity AROM: WFL's Left Lower Extremity AROM: WFL's Muscle Strength Muscle Strength Right Upper Extremity: Mild Weakness (grossly 4/5) Left Upper Extremity: Mild Weakness (grossly 4/5) Right Lower Extremity: Mild Weakness (hip flex 4-/5, knee flex4-/5 ext 4/5, ankle Df/PF 4/5) Left Lower Extremity: Mild Weakness (hip flex 4-/5, knee flex4-/5 ext 4/5, ankle Df/PF 4/5) Sensation Sensation Right Upper Extremity: Intact/Normal Left Upper Extremity: Intact/Normal Right Lower Extremity: Intact/Normal Left Lower Extremity: Intact/Normal Palpation Palpation Findings: None/Normal Balance Sitting Balance and Reactions Static Sitting Balance: Fair Dynamic Sitting Balance: Fair (fair-) Standing Balance and Reactions Static Standing Balance: Poor Dynamic Standing Balance: Poor Functional Mobility Bed Mobility Rolling R/L: Supervision Supine to Sit: Supervision Transfers Sit to Stand: CGA and 1 person assist Stand to Sit: CGA and 1 person assist Stand Pivot Transfers: CGA and 1 person assist Safety Awareness Safety Awareness: Fair EVELIO INDEX SCORE: n/a Ambulation Ambulation Assistive Device Used: Rollator Orthotic/Prosthetic Device: No Distance: 20ft Assistance needed with Ambulation: CGA and 1 person assist Quality of Ambulation: pt amb with slow, decreased step length, slight flexed posture Gait Deviations: Forward posture, Short stride and Deviates from path Factors Affecting Ambulation: Decreased Balance, Breathing/O2 Saturation, Weakness, Decreased Coordination, Decreased Safety and Limited Endurance Treatment time Units charged Gait trainin Time with patient Length of Evaluation: 19 Total treatment time: 31 Patient Education Education Patient Education: Home Exercise Program and Education of Plan of Care Teaching Recipient: Patient Teaching Methods: Discussion Comments: discussion regarding POC as well as dc planning Assessment Assessment Problem List:: Decreased level of function, Requires training/education, Decreased safety/Risk of falls and Weakness Rehab Potential: Good Further Therapy Indicated?: Yes Candidate for Swing Bed for Therapy Services?: Feel pt may benefit from swing bed for therapy for strengthening and safety with gait. Evaluation Complexity: HISTORY: Medium, EXAM OF BODY SYSTEMS: Medium, CLINICAL PRESENTATION: Medium and CLINICAL DECISION MAKING: Medium Patient's Goal(s): Be able to return home as independent as possible. Short Term Goals GOAL #1: pt independent with rolling and scooting to edge of bed. Goal to be met by: 07/20/25 GOAL #2: Transfer sup to/from sit independent Goal to be met by: 07/20/25 GOAL #3: Transfer sit to/from stand CGA to SBA Goal to be met by: 07/20/25 GOAL #4: pt amb 75 ft with rollator with CGA no LOB Goal to be met by: 07/20/25 GOAL #5: Improve BLE strength 4 to 4+/5 Goal to be met by: 07/20/25 GOAL #6: . Product Safety Test Engineer Goals GOAL #1: Transfer sup to/from sit to/from stand SB to independent Goal to be met by: 07/22/25 GOAL #2: pt amb with rollator functional household distances with SBA x 1 Goal to be met by: 07/22/25 GOAL #3: pt ascend/descend ramp with CGA Goal to be met by: 07/22/25 Plan Plan of Care: Therapeutic EX and Therapeutic Activity Other:: gait training Frequency of Treatment: 1-2 X day, as tolerated Duration of Treatment: 5 days Anticipated Discharge Destination: Home Treatment Diagnosis (ICD 10 Codes): gait difficulty R26.2 impaired balance R26.81 weakness M62.81 fall risk Z91.81 Has the Physician been added for Co-signature?: Yes
[2025-07-17 15:24] LABS: STEP PNEUMO ORGANISM ID Not indicated. (.); STREP PNEUMO AG Negative (Negative); STREP PNEUMO BODY FLUID CULT Not indicated. (.)
--- NOTE | 2025-07-17 15:56 | RS.OTINEVL ---
Subjective Patient information Date of Evaluation: 07/17/24 Date of Arrival on Unit: 07/14/25 Admitted From:: Home Diagnosis: Diabetic Ketoacidosis, weakness, Impaired balance PRECAUTIONS: fall risk Usual Living Arrangement: Alone Living Arrangement Comments: grandson lives nextdoor Home Environment: House and Ramp Medical History: Hypertension, CVA/TIA and Arthritis Medical History Comments:: neuropathy, Parkinson's disease, hiatal hernia, depression, glaucoma, GERD, CVA LATEX ALLERGY?: Yes Surgical History: Hysterectomy Surgical History Comments:: hernia repair, trigger finger release Medications: see chart Subjective Information/ Patient Comments:: "I want to try to do more." Level of function Prior to this admission, the patient could do the following:: Independent Selfcare, Independent ADL's, Independent Ambulation, Perform Chefs/Cooking, Drive and Participated in Social Activities Outside home Abilities prior to this admission: Pt was living at home alone. Pt used a rollator to ambulate in her home. Pt has help at home. Current Level of Function: Partially Dependent Comments: Pt is weak. Current Equipment Used at Home: rollator, straight cane, W/C Interventions Objective Patient Orientation: Person, Place, Time and Situation Current Interventions: IV's and Oxygen Observation: Pt requires extra time to communicate. Pt has full AROM of BUE. Pt has 4/5 RUE, 4-/5 LUE. Pt CGA to Min A to stand from EOB. Pt CGA to complete functional mobility to the Recliner. Pt Max Assist to don her socks. Interventions ROM Right Upper Extremity AROM: WFL's Left Upper Extremity AROM: WFL's Strength Right Upper Extremity: Mild Weakness Left Upper Extremity: Mild Weakness Comments:: RUE 4/5, LUE 4-/5. Sensation Right Upper Extremity: Intact/Normal Left Upper Extremity: Intact/Normal ADL Skills Self Feeding Self Feeding: Independent Grooming Grooming: Min Assist Grooming Set-up: Sitting Bathing Bathing UE: Min Assist Bathing LE: Max Assist Bathing Set-up: Shower Dressing Dressing UE: Independent Dressing LE: Max Assist Toilet Management Toilet Hygiene: Max Assist and 1 person assist Toilet Clothing Management: Max Assist and 1 person assist Functional Mobility Bed Mobility Rolling R/L: CGA Scooting: CGA Supine to Sit: CGA Sit to Supine: CGA Transfers Sit to Stand: Min Assist Stand to Sit: Min Assist Stand Pivot Transfers: Min Assist Ambulation Weight Bearing Status: FWB Assistive Device Used: Rolling Walker Assistance needed with Ambulation: Min Assist Safety Awareness Safety Awareness: Good EVELIO INDEX SCORE: . Additional Treatment Performed Additional units charged ADL: 15 Time with patient Length of Evaluation: 16 Total treatment time: 31 Activities Do you enjoy playing games?: Yes Would you be interested in leaving your room for activities?: Yes Would you enjoy group activities?: Yes Do you have difficulty with your vision?: Yes Patient Interests:: Watching Television and Visiting/Socializing Patient Education Patient Education: Education of diagnosis, Home Exercise Program and Education of Plan of Care Teaching Recipient: Patient Teaching Methods: Discussion and Demonstration Assessment Problem List:: Decreased level of function, Requires training/education, Decreased safety/Risk of falls and Weakness Rehab Potential: Good Further Therapy Indicated?: Yes Evaluation Complexity: HISTORY: Medium, EXAM OF BODY SYSTEMS: Medium and CLINICAL DECISION MAKING: Medium Patient's Goal(s): To get stronger and be able to live at home alone again. Short Term Goals Goals GOAL 1: Pt to complete toileting transfer Sup. Goal to be met by: 07/24/25 Comments: S GOAL 2: Pt to increase dynamic standing activity to 10 minutes. Goal to be met by: 07/24/25 GOAL 3: Pt to increase LUE strength to 4/5. Goal to be met by: 07/24/25 GOAL 4: Pt to increase UB dressing to CGA. Goal to be met by: 07/24/25 GOAL 5: To be CGA with LB dressing. Goal to be met by: 07/24/25 Shelter Goals GOAL 1: Pt to increase independence of ADLS to Independent. Goal to be met by: 07/27/25 GOAL 2: Pt to complete Activity tolerance to 20 minutes. Goal to be met by: 07/27/25 GOAL 3: Pt to increase BUE strength to 4+/5. Goal to be met by: 07/27/25 Plan Plan of Care: Therapeutic EX, Neuromuscular Re-Educ, Therapeutic Activity and Self-Care/Home Management Frequency of Treatment: 1-2 X day, as tolerated Duration of Treatment: 7-10 days Anticipated Discharge Destination: Home Treatment Diagnosis (ICD 10 Codes): Z74.1 Need for personal care assistance, R53.1 Weakness, R26.81 Impaired balance. Has the Physician been added for Co-signature?: Yes
[2025-07-17] MEDS: ELIQUIS PO SCH (21:46)
[2025-07-18] MEDS: CARDIZEM INJ IVP STA (00:30)
[2025-07-18] MEDS ORDERED: TUMS CHEWABLE PO PRN (00:57)
[2025-07-18] MEDS ORDERED: MYLANTA SUSP PO PRN (00:57)
[2025-07-18] MEDS: CARDIZEM INJ ONE (01:30)
[2025-07-18] MEDS: LANOXIN IVP ONE (02:19)
[2025-07-18 05:27] LABS: IMMATURE GRANULOCYTE # (AUTO) 0.0 (0.0-1.0); IMMATURE GRANULOCYTE % (AUTO) 0.6 % (0.0-5.0); RDW COEFFICIENT OF VARIATION 15.1 % (11.6-14.8)
[2025-07-18 05:41] LABS: CREATININE 0.71 mg/dL (0.60-1.30)
[2025-07-18] MEDS: CEFPODOXIME PROXETIL PO SCH (09:58)
[2025-07-18] MEDS: K-DUR PO ONE (10:03)
--- NOTE | 2025-07-18 10:37 | PCM.PROG ---
Date/Time Seen Date Seen by Provider: 07/18/25 Time Seen by Provider: 08:45 Provider Provider[facility] Chief Complaint Chief Complaint: HIGH BLOOD SUGARS, SOB Subjective Subjective: Patient looks better clinically today. Had an episode of right sided chest pain last night after drinking juice. Went back into a fib rvr. Required dose of IV dig through the night. EKG with no st elevations. No more chest pain since. Diarrhea has improved. C diff was negative. Working with therapy, is very weak from her baseline. Having occasional low glucose. Objective Appearance: Positive No Apparent Distress and Alert and Oriented x3 Chest/Lungs: Positive Clear to Auscultation Bilaterally; Negative Rales, Rhonci or Wheezes Heart: Positive RRR GI/: Positive Soft, Nontender, Bowel Sounds Normal and No Distention Neurological: Positive Cranial Nerves Intact, Alert (more interactive today, smiles during conversation, answers questions appropriately ), Oriented and Other (generalized weakness ) Vital Signs Vital Signs: Vital Signs: Last 24 Hours 07/17/25 13:00 07/17/25 14:00 07/17/25 15:55 Temperature 97.5 F L Temperature Source Temporal Artery Scan Pulse Rate 90 Respiratory Rate 16 Blood Pressure 126/61 Blood Pressure Mean 82 Blood Pressure Location Left Arm Blood Pressure Position O2 Sat by Pulse Oximetry 97 95 Oxygen Delivery Method Nasal Cannula Nasal Cannula Oxygen Flow Rate 1 1 Telemetry Type Remote Telemetry Telemetry Monitoring Continues Telemetry Heart Rate 88 Telemetry SPO2 95 EKG FL Interval 0.22 H EKG QRS Interval 0.09 Telemetry Strip Reading SR with 1st Degree AVB and PVC's 07/17/25 16:59 07/17/25 18:00 07/17/25 19:00 Temperature 97.9 F 98.2 F Temperature Source Oral Oral Pulse Rate 88 94 Respiratory Rate 18 20 Blood Pressure 142/83 H 134/64 Blood Pressure Mean 102 87 Blood Pressure Location Left Arm Left Arm Blood Pressure Position Sitting O2 Sat by Pulse Oximetry 96 96 Oxygen Delivery Method Nasal Cannula Nasal Cannula Oxygen Flow Rate 1 1 Telemetry Type Remote Telemetry Telemetry Monitoring Continues Telemetry Heart Rate 84 Telemetry SPO2 97 EKG FL Interval 0.23 H EKG QRS Interval 0.08 Telemetry Strip Reading sr with 1st degree block 07/17/25 20:00 07/17/25 20:00 07/17/25 21:21 Temperature 98.2 F Temperature Source Temporal Artery Scan Pulse Rate 83 Respiratory Rate 19 Blood Pressure 125/67 Blood Pressure Mean 86 Blood Pressure Location Right Arm Blood Pressure Position Supine O2 Sat by Pulse Oximetry 95 95 Oxygen Delivery Method Nasal Cannula Nasal Cannula Nasal Cannula Oxygen Flow Rate 1 1 2 Telemetry Type Telemetry Monitoring Telemetry Heart Rate Telemetry SPO2 EKG FL Interval EKG QRS Interval Telemetry Strip Reading 07/18/25 01:00 07/18/25 01:55 07/18/25 02:19 Temperature Temperature Source Pulse Rate 115 H 119 H Respiratory Rate 16 Blood Pressure 122/92 H Blood Pressure Mean 102 Blood Pressure Location Right Arm Blood Pressure Position Supine O2 Sat by Pulse Oximetry 94 L Oxygen Delivery Method Nasal Cannula Oxygen Flow Rate 1 Telemetry Type Remote Telemetry Telemetry Monitoring Continues Telemetry Heart Rate 120 H Telemetry SPO2 92 L EKG FL Interval EKG QRS Interval 0.11 H Telemetry Strip Reading A-Fib w/PVCs and BBB 07/18/25 05:23 07/18/25 06:00 07/18/25 07:00 Temperature 96.9 F L Temperature Source Temporal Artery Scan Pulse Rate 83 Respiratory Rate 20 Blood Pressure 124/75 Blood Pressure Mean 91 Blood Pressure Location Right Arm Blood Pressure Position Supine O2 Sat by Pulse Oximetry 94 L Oxygen Delivery Method Nasal Cannula Nasal Cannula Oxygen Flow Rate 1 1 Telemetry Type Remote Telemetry Telemetry Monitoring Continues Telemetry Heart Rate 91 Telemetry SPO2 95 EKG FL Interval 0.25 H EKG QRS Interval 0.08 Telemetry Strip Reading SR with 1st Degree AVB Lab Results Lab Results: Lab Results: Last 24 Hours 07/18/25 07/14/25 05:10 03:37 WBC 5.28 RBC 3.94 L Hgb 10.6 L Hct 33.4 L MCV 84.8 MCH 26.9 L MCHC 31.7 L RDW Coeff of Jluis 15.1 H Plt Count 301 Immature Gran % (Auto) 0.6 Neut % (Auto) 67.9 Lymph % (Auto) 20.5 Morgan % (Auto) 8.1 Eos % (Auto) 2.5 Baso % (Auto) 0.4 Neut # (Auto) 3.6 Lymph # (Auto) 1.1 Morgan # (Auto) 0.4 Eos # (Auto) 0.1 Baso # (Auto) 0.0 Immature Gran # (Auto) 0.0 Sodium 139.3 Potassium 3.25 L Chloride 106.0 Carbon Dioxide 28.9 Anion Gap 7.65 BUN 9.6 Creatinine 0.71 Estimated GFR (MDRD) 80.00 BUN/Creatinine Ratio 13.52 Glucose 74.3 Hemoglobin A1c 8.97 H Calcium 8.20 L Total Bilirubin 0.48 AST 53.9 H ALT 28.2 Alkaline Phosphatase 135.0 Total Protein 6.28 L Albumin 3.03 L Globulin 3.25 Albumin/Globulin Ratio 0.93 CSF Strep pneumoniae Ag Not indicated. Staphs Organism ID Not indicated. S. pneumoniae Ag Source Urine S. pneumoniae Ag Intrp Negative Ref Test Please Note Comment Additional Comments Additional Comments: I have independently reviewed and interpreted the labs/EKGs/imaging ordered during this hospital stay. I have reviewed outside records that are available in our EMR that pertain to medical stay including imaging/notes/labs from previous visits. Active Medications Active Medications: Medications Generic Name Dose Route Start Last Admin Trade Name Freq PRN Reason Stop Dose Admin Acetaminophen 650 mg 07/13/25 23:56 07/17/25 06:43 Acetaminophen 325 Mg Tablet PO 650 mg Q4H PRN Administration Mild Pain Al Hydroxide/Mg Hydroxide 30 ml 07/18/25 00:57 Mag Hydrox/Al Hydrox/Simeth 30 Ml Cup PO QID PRN Heartburn Albuterol/Ipratropium 3 ml 07/14/25 11:36 07/17/25 02:44 Ipratropium/Albuterol Vial.Neb NEB 3 ml RTQ6H PRN Administration Wheezing Apixaban 5 mg 07/17/25 21:00 07/18/25 09:57 Apixaban 5 Mg Tab PO 5 mg BID WALTER Administration Atorvastatin Calcium 40 mg 07/14/25 21:00 07/17/25 21:45 Atorvastatin Calcium 20 Mg Tablet PO 40 mg BEDTIME WALTER Administration Calcium Carbonate/Glycine 500 mg 07/18/25 00:57 Calcium Carbonate 500 Mg Tab.Chew PO Q6H PRN Heartburn Cefuroxime Axetil 200 mg 07/18/25 07:30 07/18/25 09:58 Cefpodoxime Proxetil 200 Mg Tablet PO 07/21/25 07:29 200 mg BIDWM2 WALTER Administration Diltiazem HCl 240 mg 07/18/25 12:00 Diltiazem Hcl 120 Mg Cap.Er.24h PO DAILY WALTER Doxycycline Hyclate 100 mg 07/14/25 09:00 07/18/25 09:57 Doxycycline Hyclate 100 Mg Capsule PO 07/21/25 08:59 100 mg Q12HR WALTER Administration Duloxetine HCl 30 mg 07/14/25 09:40 07/18/25 09:58 Duloxetine Hcl 30 Mg Capsule. PO 30 mg DAILY WALTER Administration Empagliflozin 25 mg 07/14/25 10:30 07/18/25 09:59 Empagliflozin 10 Mg Tablet PO 25 mg DAILY WALTER Administration Gabapentin 100 mg 07/14/25 21:00 07/17/25 21:46 Gabapentin 100 Mg Capsule PO 100 mg BEDTIME WALTER Administration Ibuprofen 600 mg 07/14/25 14:12 07/14/25 15:18 Ibuprofen 600 Mg Tablet PO 600 mg Q6H PRN Administration Pain Insulin Glargine 40 unit 07/14/25 17:00 07/17/25 17:54 Insulin Glargine,Hum.Rec.Anlog 100 Units/Ml SUBCUT 40 unit 1700 WALTER Administration Insulin Human Lispro 6 unit 07/14/25 12:00 07/18/25 10:13 Insulin Lispro 100 Unit/Ml (10 Ml Vial) SUBCUT 6 unit TIDWM2 WALTER Administration Latanoprost 1 drop 07/14/25 21:00 07/17/25 21:45 Latanoprost 2.5 Ml Opth Daisy EACHEYE 1 drop BEDTIME WALTER Administration Loperamide HCl 2 mg 07/17/25 10:28 07/17/25 15:15 Loperamide Hcl 2 Mg Tablet PO 2 mg AFTER LOOSE STOOLS PRN Administration Diarrhea Pantoprazole Sodium 40 mg 07/14/25 09:40 07/18/25 05:49 Pantoprazole Sodium 40 Mg Tablet. PO 40 mg BIDAC2 WALTER Administration Saccharomyces Boulardii 250 mg 07/14/25 09:00 07/18/25 09:57 Saccharomyces Boulardii 250 Mg Capsule PO 250 mg BID WALTER Administration Sodium Chloride 1 syr 07/13/25 22:57 0.9% Sodium Chloride 10 Ml Disp.Syrin IVF PRN PRN To flush IV Sodium Chloride 1 syr 07/14/25 21:00 07/18/25 05:44 0.9% Sodium Chloride 10 Ml Disp.Syrin IVF 1 syr Q8HR WALTER Administration Sucralfate 1 gm 07/14/25 09:40 07/18/25 05:48 Sucralfate 1 Gm Tablet PO 1 gm ACHS2 WALTER Administration Plan Plan: 1. Sepsis in setting of Pneumonia - ruled out. blood cultures negative so far, IV fluids given in ER, rocephin and doxy ordered 2. Bilateral pneumonia, community acquired - cefpodoxime and doxy, nebs prn, sputum, mrsa negative, strep pneumo, and legionella ordered, has been fever free now >24 hours 3. Acute hypoxic respiratory failure - Requiring 1L, wean when able. 4. DKA - Resolved 5. A fib rvr - Resolved, converted to NSR on 07/15. Went back into a fib night of 07/17, now back to NSR. New diagnosis, echo ordered showing EF 65-70%, chadvasc score high risk, started eliquis. Started on oral cardizem. Stress test on 07/03 was negative. 6. Hypokalemia - improved today, goal of 4 7. Diabetes Mellitus - ADA diet, accuchecks qid, decrease lantus to 35 untis and change humalog to sliding scale to avoid lows, patient likely not eating as much here. 8. GERD - chronic, continue home medications 9. Diarrhea - improved, c diff negative on 07/17. 10. Hx of stroke like symptoms about 1 year ago - imaging ruled out stroke but patient had left sided weakness. Saw neurology 02/22 who took her off plavix, was told to continue asa and statin. DVT: eliquis Dispo: May be a swingbed candidate once medically stable Review Statement Review Statement: I have personally discussed and reviewed the patient's visit/currently labs/imaging/decision making with Dr. Goldman, my supervising attending. Greater that 50 minutes spent with patient, 50% of the time spent with this patient was devoted to counseling and coordination of care.
[2025-07-18] MEDS: CARDIZEM CD PO SCH (12:31)
[2025-07-18] MEDS: HUMALOG (10 ML VIAL) SUBCUT PRN (12:46)
--- NOTE | 2025-07-18 15:03 | RS.SWEVAL ---
Subjective Date of Evaluation: 07/18/25 Diagnosis: Pneumonia Current Diet: Regular Current Subjective/complaints:: Patient referred for swallow evaluation due to reports of choking during breakfast. General Information General Patient Orientation: Person, Place, Time and Situation Ability to Follow Directions: Excellent Food Presentation Solids Food Presented: Pureed (pudding) Behaviors/Comments: no difficulty observed Food Presented: Regular (cracker) Behaviors/Comments: no difficulty observed Liquids Liquid Presented: Thin (straw) Behaviors/Comments: no difficulty observed Recommendations: Dysphagia Evaluation Dietary Recommendations: Regular and Thin Dysphagia Swallow Precautions/Strategies: Sitting Upright (90 deg), Small Bites and Sips and Alternate Liquids/Solids Summary Dysphagia Evaluation Summary: Patient was seen at bedside. She was alert and seated upright in her bed. She reported that she had difficulty with a bite of biscuit during breakfast. She has not reported difficulty with any other meal while in the hospital. No s/s of penetration/aspiration were noted during the eval. She seems slightly weak due to the hospital stay, however no swallowing difficulties were observed. Patient and daughter were educated on safe swallow techniques and strategies to decrease risk while eating. Further Therapy Indicated?: No
[2025-07-18] MEDS: LANTUS SUBCUT SCH (17:23)
[2025-07-19 05:25] LABS: IMMATURE GRANULOCYTE # (AUTO) 0.0 (0.0-1.0); IMMATURE GRANULOCYTE % (AUTO) 0.6 % (0.0-5.0); RDW COEFFICIENT OF VARIATION 15.1 % (11.6-14.8)
[2025-07-19 05:36] LABS: CREATININE 0.71 mg/dL (0.60-1.30)
--- NOTE | 2025-07-19 10:44 | DCSUM ---
Admission Date Admission Date: 07/13/25 Discharge Date Discharge Date: 07/19/25 Admission Diagnosis Admission Diagnosis: 1. Sepsis in setting of Pneumonia 2. Bilateral pneumonia, community acquired 3. Acute hypoxic respiratory failure 4. DKA Discharge Diagnosis Discharge Diagnosis: 1. Sepsis in setting of Pneumonia - ruled out 2. Bilateral pneumonia due to legionella 3. Acute hypoxic respiratory failure - resolved 4. DKA - Resolved 5. A fib rvr - Resolved 6. Hypokalemia - improved 7. Diabetes Mellitus 8. GERD 9. Diarrhea - resolved 10. Hx of stroke like symptoms about 1 year ago Hospital Provider Hospital Provider: TONI ALONSO PA-C, [facility] Primary Care Physician Primary Care Physician: CRISTY BUSBY APRN Summary of History and Physical Summary of History and Physical: 80 yo female with pmh of parkinson's disease, diabetes, GERD, and neuropathy presented to the ER with complaints of weakness. States she hasn't felt well for the last few days, blood sugars have been higher, and has had chills. Denies any known fever that she knows of, shortness of breath, cough, or other symptoms. O2 sat in ER was 93% on RA, chest x-ray showed left sided pneumonia. Anion gap was found to be 23, small acetone, and glucose was in 180s. Given fluids and corrected DKA in ER. Hypokalemia present prior to admission to the floor. K 2.63. Replacement given. Admitted to med/surg observation. Hospital Course Subjective: Patient was treated with Rocephin and doxycycline. DKA resolved with fluids and insulin. Patient continued to run high fevers and anytime Tylenol wore off. CT of chest and abdomen showed bilateral pneumonia. Continued plan of care and patient slowly improved. She has been afebrile now for well over 24 hours. She has also gone in and out of A-fib RVR. This is a new diagnosis for her. Echo performed showing a normal ejection fraction. She was ultimately started on Cardizem oral and has been doing well. She has also been started on Eliquis due to her high [id number] score. Risks versus benefits discussed including risk of bleeding. Her and daughter are in agreement with starting anticoagulation. She did have some diarrhea which cause hypokalemia but this is improved. Her Legionella has come back positive. Changing her antibiotics to include azithromycin. Infection control notified who will let the health department know. Discussed Legionella with the patient and the importance of checking on her water source. She has traveled to [place] recently as well and has been in multiple airports and exposed to multiple water sources. She is overall clinically improved and medically stable. She is noted to be very weak and having difficulty doing her ADLs. She does live at home alone but her daughter can check in on her. It was decided to admit her to swing bed for further skilled rehab. Appearance: Pleasant, No Apparent Distress and Alert HEENT: MMM and Supple CVS: Other (RRR) Abdomen: Soft, Non-Tender and No Distention Respiratory: No Accessory Muscle Use Extremities: No Edema Vital Signs: Most Recent Vital Signs Temperature 97.6 F 07/19/25 05:12 Temperature Source Axillary 07/19/25 05:12 Temperature Source Infrared 07/14/25 05:00 Pulse Rate 84 07/19/25 05:12 Respiratory Rate 16 07/19/25 05:12 Blood Pressure 140/69 07/19/25 05:12 Blood Pressure Mean 92 07/19/25 05:12 Blood Pressure Right Arm 105/66 07/14/25 06:20 Blood Pressure Location Left Arm 07/19/25 05:12 Blood Pressure Position Supine 07/19/25 05:12 O2 Sat by Pulse Oximetry 94 L 07/19/25 05:24 Oxygen Delivery Method Room Air 07/19/25 05:24 Oxygen Flow Rate 1 07/18/25 10:00 Height 5 ft 5 in 07/14/25 06:20 Weight 73.8 kg 07/14/25 06:20 Telemetry Type Remote Telemetry 07/19/25 07:00 Telemetry Monitoring Continues 07/19/25 07:00 Irregular Telemetry Rate (Approximate) 90-100 BPM 07/16/25 13:00 Telemetry Heart Rate 88 07/19/25 07:00 Telemetry SPO2 93 07/19/25 07:00 EKG AK Interval 0.24 H 07/19/25 07:00 EKG QRS Interval 0.09 07/19/25 07:00 Telemetry Strip Reading SR w/1st Degree AVB 07/19/25 07:00 Imaging: EXAM: FRONTAL VIEW OF THE CHEST. HISTORY: Chest pain and shortness of breath. COMPARISON: Chest radiograph 09/07/2024. FINDINGS: Aortic calcifications. Normal heart size. Elevated right hemidiaphragm. Opacities at the left lung base. No visible pleural effusion or pneumothorax. Bones appear demineralized. IMPRESSION: Left basilar opacities concerning for pneumonia. EXAM: CT OF THE ABDOMEN AND PELVIS WITH CONTRAST TECHNIQUE: CT of the abdomen and pelvis was performed with contrast. Multiplanar reformats were performed. 100 ml Omnipaque 350. HISTORY: Tachycardia and fever. COMPARISON: CT chest same date., 09/03/2022 CT abdomen pelvis. FINDINGS: Imaged lower thorax: Bibasilar dense atelectasis versus pneumonia with left- sided pleural effusion. See separate chest CT dictation. There is a midline fat-containing hernia in the upper epigastric region Liver: Mild steatosis. Gallbladder/Bile Ducts: No biliary dilation. The gallbladder is normal. Spleen: Unremarkable. Pancreas: Normal. Adrenals: No discrete lesions. Kidneys/Ureters: No obvious stones or obstructive change. Small cortical cyst on the right Bowel/mesentery/peritoneum: There are some air and fluid-filled loops of small bowel. No specific zone of transition with some fluid seen at the small bowel and colon anastomoses. Could reflect mild ileus or enterocolitis. If there is any clinical concern for bowel obstruction recommend short-term follow-up in 24 hours Postoperative changes are present in the right colon from prior partial colectomy. No free fluid or free air.The sigmoid colon is decompressed but also mildly thickened. Diverticulosis is present. There is no surrounding fat stranding. The apparent thickening is likely secondary to the decompressed state. Correlate with any lower abdominal pain which might indicate a early colitis symptoms.. Retroperitoneum/vessels: No aortic aneurysm. No adenopathy. Pelvis: Bladder is decompressed by Stewart catheter.Uterus is absent. Adnexa not visualized.. Bones: Degenerative changes of the lumbar spine with disc bulge and shallow spondylolisthesis L3-4 resulting in mild canal stenosis. Degenerative changes result in canal or neural foraminal stenosis of L4-5 and neural foraminal stenosis and L5-S1.No acute fracture. IMPRESSION: 1. Bibasilar pulmonary infiltrates with left-sided effusion. 2. Mildly prominent fluid and air filled small bowel however there is also fluid to the ileocolonic anastomosis. May reflect enterocolitis or mild ileus. Recommend short-term follow-up repeat imaging if concern for obstruction. 3. Diverticulosis. No definitive evidence of diverticulitis although the sigmoid colon wall does appear to be mildly thickened. See above. 4. Degenerative changes of the lumbar spine. 5. There is a spinal stimulator device in the subcutaneous fat of the left buttock. 6. Epigastric abdominal hernia containing fat but no bowel loops. EXAM: CT HEAD WITHOUT CONTRAST 07/15/2025. SAGITTAL AND CORONAL REFORMATTED IMAGES OBTAINED HISTORY: Altered mental status COMPARISON: 07/03/2024 FINDINGS: There is no evidence of intracranial hemorrhage. The midline is maintained. There is no hydrocephalus. Generalized atrophy. Chronic small vessel ischemic change. No cerebellar tonsillar ectopia. Evaluation of the calvarium shows no fracture. The mastoid air cells are normally pneumatized. IMPRESSION: No acute intracranial abnormality. EXAM: CT ANGIOGRAPHY OF THE CHEST History, tachycardia and fever TECHNIQUE: 1.[address] chest utilizing CT angiography protocol. Multiplanar an three-dimensional reformations were performed. FINDINGS: Technically adequate for evaluation of pulmonary arteries. No pulmonary artery filling defects. Small bilateral pleural effusions. Consolidative change of the right and left lung bases. Atherosclerotic calcification of the aorta. No acute chest wall abnormality. No acute findings of the upper abdomen. IMPRESSION: 1. No evidence of pulmonary artery thrombus 2. Bilateral lung base consolidative change favoring pneumonia Echo - see PDF report Lab Results Last 24 Hours: 07/19/25 07/14/25 05:18 08:03 WBC 4.93 RBC 4.25 Hgb 11.6 L Hct 36.8 L MCV 86.6 MCH 27.3 MCHC 31.5 L RDW Coeff of Jluis 15.1 H Plt Count 386 Immature Gran % (Auto) 0.6 Neut % (Auto) 59.0 Lymph % (Auto) 27.0 [place] % (Auto) 8.3 Eos % (Auto) 4.5 Baso % (Auto) 0.6 Neut # (Auto) 2.9 Lymph # (Auto) 1.3 [place] # (Auto) 0.4 Eos # (Auto) 0.2 Baso # (Auto) 0.0 Immature Gran # (Auto) 0.0 Sodium 140.9 Potassium 3.52 Chloride 104.8 Carbon Dioxide 30.6 H Anion Gap 9.02 BUN 13.8 Creatinine 0.71 Estimated GFR (MDRD) 80.00 BUN/Creatinine Ratio 19.43 Glucose 77.6 Calcium 8.75 Total Bilirubin 0.60 AST 70.1 H ALT 30.7 Alkaline Phosphatase 144.0 H Total Protein 6.87 Albumin 3.29 L Globulin 3.58 Albumin/Globulin Ratio 0.91 Urine Legionella Ag Positive H Discharge Instructions Discharge Planning: Discharge Planning > [address] Zahra Goldman. Transition to swingbed Discharge Plan Discharge Discharge Orders: Discharge Patient (ONCE); Ordered 07/19/25 Ordered By: TONI ALONSO Activity Restrictions/Additional Instructions: DISCHARGE TO SWINGBED Patient Disposition: DISCH W/I HOSP TO SWING BD Prescriptions: Continued atorvastatin 40 mg tablet 40 mg PO BEDTIME Qty: 90 2RF duloxetine 30 mg capsule,delayed release(DR/EC) 30 mg PO DAILY Qty: 90 1RF Jardiance 25 mg tablet 25 mg PO DAILY Qty: 30 2RF sucralfate 1 gram tablet 1 g PO 4XD Qty: 120 2RF insulin lispro 100 unit/mL insulin pen 6 unit subcut 3XD Qty: 15 2RF gabapentin 100 mg capsule 100 mg PO BEDTIME pantoprazole 40 mg tablet,delayed release (DR/EC) 40 mg PO Q12HR metformin 1,000 mg tablet 1,000 mg PO 1700 insulin glargine [Lantus Solostar U-100 Insulin] 100 unit/mL (3 mL) insulin pen 40 unit subcut 1700 latanoprost 1 DROP drops 1 drp BOTHEYES BEDTIME No Action (DME) pen needle, diabetic [TRUEplus Pen Needle] 31 gauge x 3/16" needle See Rx Instructions .ROUTE .COMPLEX Qty: 100 5RF Dose Instruction: USE DIRECTED DAILY Rx Instructions: USE DIRECTED DAILY (DME) blood-glucose meter Kit See Rx Instructions .ROUTE Qty: 1 0RF Rx Instructions: As directed DM2 E11.9 test two times daily (DME) lancets [Color Lancets] 21 gauge misc See Rx Instructions .ROUTE Qty: 100 5RF Rx Instructions: As directed DM2 E11.9 TEST TWO TIMES DAILY (DME) blood sugar diagnostic Strip See Rx Instructions .ROUTE Qty: 100 5RF Rx Instructions: As directed DM2 E11.9 TEST TWO TIMES DAILY (DME) Dexcom G7 Guide Travel Misc See Rx Instructions .ROUTE Qty: 1 0RF Rx Instructions: As directed E11.9 DM2 ONE YEARLY (DME) Dexcom G7 Sensor Device See Rx Instructions .ROUTE Qty: 9 3RF Rx Instructions: As directed E11.9 DM2 THREE BOXES WITH THREE SENSOR EACH Did you review [place] [employer] for ALL controlled substances?: Not Applicable Discussed opioids are addictive and Narcan is available by prescription or from pharmacy.: No Condition: Stable
[2025-07-19 11:07] VITALS: BP 141/87; PULSE 77; RESP 20; TEMP 97
[2025-07-19] MEDS ORDERED: LANTUS SUBCUT SCH (17:00)
== END 2025-07-19 11:05 | disposition swing bed (61) | DRG 177 ==
LOC: ED 21:48 → INTOOBSV 07-14 05:37 → MEDSURG B 07-14 05:37
PROVIDERS: ADMIT Hospitalist; ATTEND Physician Assistant